=== PATIENT | male | born 1955 | race Caucasian/White ===

== ENCOUNTER → 2017-11-30 12:21 | Outpatient (CLI) | payer OTHER, SELFPAY ==
[2017-11-30 13:31] LABS: Absolute Lymphocyte Count 2.01 X10^3/ul (0.83-4.51); Absolute Neutrophil Count 5.2 X10^3/uL (2.0-7.7); Basophil# 0.02 X10^3/uL; Basophil% 0.2 % (0-1); Eosinophil# 0.15 X10^3/uL; Eosinophils% 1.8 % (0-5); Hemoglobin 13.3 g/dl (13.0-16.5); Lymphocyte # 2.01 X10^3/ul (4.0); Lymphocyte % 24.6 % (19-41); Mean Corp Hgb Conc 33.3 g/gl (32-36); Mean Corpuscular Hgb 26.3 pg (27.0-32.0); Mean Corpuscular Volume 79.2 fL (80-94); Mean Platelet Vol. 10.1 fl (6.2-12.0); Monocyte% 9.8 % (0-10); Neutrophil # 5.18 X10^3/uL (2.7-7.7); Neutrophil % 63.5 % (47-70); Platelet Count 152 K/mm3 (150-450); RBC Distribution Width CV 14.2 % (11.6-14.6); RBC Distribution Width SD 40.1 fl (35.1-43.9); Red Blood Count 5.05 M/mm3 (4.6-6.2); White Blood Count 8.2 K/mm3 (4.4-11.0)
[2017-11-30 13:32] LABS: POSITIVE COUNT NO; POSITIVE DIFFERENTIAL NO; POSITIVE MORPHOLOGY NO
[2017-11-30 13:53] LABS: ALB/GLOB Ratio 0.9 RATIO (0.9-2.4); AST(SGOT) 37 U/L (15-37); Alanine Aminotransfer ALT/SGPT 43 U/L (16-61); Albumin, Serum 3.4 g/dL (3.2-5.0); Alkaline Phosphatase 73 U/L (45-117); Anion Gap 9 (5-15); BUN 42 mg/dL (7-18); BUN/Creat Ratio 24.6 RATIO (10-20); Calcium,Total 8.6 mg/dL (8.5-10.1); Chloride 100 mmol/L (98-107); Creatinine, Serum 1.71 mg/dL (0.70-1.30); EST Glomerular Filtration Rate 43 mL/min (>60); Est Glom Filt Rate - Afr Amer 53 mL/min (>60); Globulin 3.6 g/dL (2.2-4.2); Glucose 140 mg/dL (74-106); Potassium 3.6 mmol/L (3.5-5.1); Sodium Level 140 mmol/L (136-145); Thyroid Stim Hormone (TSH) 2.17 uIU/mL (0.358-3.74)
== END ==
PROVIDERS: Family Provider Family Medicine Geriatric Medicine; PCP Family Medicine Geriatric Medicine; Visit Provider Family Medicine Geriatric Medicine
DX: E11.9 Type 2 diabetes mellitus without complications (principal); F52.8 Other sexual dysfunction not due to a substance or known physiological condition; I10 Essential (primary) hypertension
CPT/HCPCS: 36415; 80053; 84403; 84443; 85025

== ENCOUNTER → 2018-04-15 16:25 | Outpatient (CLI) | payer OTHER, SELFPAY ==
--- NOTE | 2018-04-15 16:29 | RAD_ITS ---
STUDY: X-RAY - LUMBAR SPINE REASON FOR EXAM: Male, 62 years old. back pain had right hip replacement in 2012 and feels like he is off balance and leans more towards one side than the other TECHNIQUE: 3 view(s) of the lumbar spine were obtained. COMPARISON: April 12, 2015 FINDINGS: Normal lumbar lordosis. There is no substantial scoliosis. There is a normal alignment of the vertebrae. There is multilevel endplate spondylosis of the lumbar vertebrae. Normal disc space heights. There is atherosclerotic calcification of the abdominal aorta without a demonstrated aneurysm. RAD/Lumbar Spine 2 or 3 Views IMPRESSION: There has been mild progression of degenerative disc disease. Electronically Signed: Mariia Pollard MD at 13:55 EDT , Service support ,
--- NOTE | 2018-04-15 16:30 | RAD_ITS ---
STUDY: X-RAY - LEFT SHOULDER REASON FOR EXAM: Male, 62 years old. bilateral arm pain worse in left arm both arms go numb TECHNIQUE: 4 view(s) of the shoulder. COMPARISON: None. FINDINGS: Normal glenohumeral articulation. There is degenerative arthrosis of the acromioclavicular joint without inferior osseous spur formation. Normal acromion. Normal humeral head and visualized proximal humerus. The soft tissue structures are unremarkable. Normal visualized pulmonary apex. RAD/Shoulder min 2 Views IMPRESSION: There is mild acromioclavicular joint degenerative arthrosis. Electronically Signed: Mariia Pollard MD at 13:31 EDT , Service support ,
--- NOTE | 2018-04-15 16:30 | RAD_ITS ---
STUDY: X-RAY - RIGHT SHOULDER REASON FOR EXAM: Male, 62 years old. bilateral arm pain worse in left arm both arms go numb TECHNIQUE: 4 view(s) of the shoulder. COMPARISON: None. FINDINGS: Normal glenohumeral articulation. There is degenerative arthrosis of the acromioclavicular joint without inferior osseous spur formation. Normal acromion. Normal humeral head and visualized proximal humerus. The soft tissue structures are unremarkable. Normal visualized pulmonary apex. RAD/Shoulder min 2 Views IMPRESSION: There is acromioclavicular joint degenerative arthrosis. Electronically Signed: Mariia Pollard MD at 13:29 EDT , Service support ,
--- NOTE | 2018-04-15 16:35 | RAD_ITS ---
STUDY: X-RAY - CERVICAL SPINE REASON FOR EXAM: Male, 62 years old. back pain had right hip replacement in 2012 and feels like he is off balance and leans more towards one side than the other TECHNIQUE: 4 view(s) of the cervical spine were obtained. COMPARISON: None FINDINGS: There are degenerative changes of the anterior atlantoaxial articulation. Normal odontoid process. There is straightening of the normal cervical lordosis. There is multi-level endplate spondylosis. There is multi-level degenerative disc disease with multilevel disc space narrowing. Normal visualized intervertebral neuroforamina. The soft tissue structures are unremarkable. RAD/Cerv Spine 2 or 3 Views IMPRESSION: There are degenerative changes. Electronically Signed: Mariia Pollard MD at 13:54 EDT , Service support ,
== END ==
PROVIDERS: Family Provider Family Medicine Geriatric Medicine; PCP Family Medicine Geriatric Medicine; Visit Provider Anesthesiology Pain Medicine
DX: M47.892 Other spondylosis, cervical region (principal); M50.30 Other cervical disc degeneration, unspecified cervical region; M48.02 Spinal stenosis, cervical region; M51.36 Other intervertebral disc degeneration, lumbar region; M19.012 Primary osteoarthritis, left shoulder; M19.011 Primary osteoarthritis, right shoulder
CPT/HCPCS: 72040; 72100; 73030

== ENCOUNTER → 2018-05-30 10:34 | Outpatient (CLI) | payer OTHER, SELFPAY ==
--- NOTE | 2018-05-30 10:40 | RAD_ITS ---
STUDY: X-RAY - ABDOMEN/PELVIS REASON FOR EXAM: Male, 63 years old. Left-sided pain. TECHNIQUE: AP supine and upright views of the abdomen and pelvis. COMPARISON: None. FINDINGS: Normal visualized lung bases. There is an abundance of fecal material throughout the colon. There is no demonstrated free abdominal air. There is evidence of a hepatosplenomegaly. Normal soft tissue structures. There are diffuse degenerative changes of the visualized lumbar spine. Prior right total hip replacement. RAD/Abd Inc Decub and/or Erect IMPRESSION: Large amount of fecal material is seen in the colon. Hepatosplenomegaly. Electronically Signed: Pepe Hamlin MD at 11:20 EDT Tel [phone], Service support ,
--- NOTE | 2018-05-30 10:40 | RAD_ITS ---
STUDY: X-RAY - LUMBAR SPINE REASON FOR EXAM: Male, 63 years old. Left-sided pain. TECHNIQUE: 3 view(s) of the lumbar spine were obtained. COMPARISON: None FINDINGS: Normal lumbar lordosis. There is no substantial scoliosis. There is a normal alignment of the vertebrae. There is multilevel endplate spondylosis of the lumbar vertebrae. Normal disc space heights. Facet joint osteoarthritis. There is atherosclerotic calcification of the abdominal aorta without a demonstrated aneurysm. RAD/Lumbar Spine 2 or 3 Views IMPRESSION: Degenerative changes of the spine, as detailed above. Electronically Signed: Pepe Hamlin MD at 11:19 EDT Tel [phone], Service support ,
[2018-05-30 12:50] LABS: Absolute Neutrophil Count 5.3 X10^3/uL (2.0-7.7); Basophil# 0.01 X10^3/uL; Basophil% 0.1 % (0-1); Eosinophils% 2.7 % (0-5); Hematocrit 40.3 % (40-54); Hemoglobin 13.6 g/dl (13.0-16.5); Lymphocyte % 18.6 % (19-41); Mean Corp Hgb Conc 33.7 g/gl (32-36); Mean Corpuscular Volume 80.1 fL (80-94); Mean Platelet Vol. 9.6 fl (6.2-12.0); Monocyte# 0.57 X10^3/uL; Monocyte% 7.6 % (0-10); Neutrophil # 5.33 X10^3/uL (2.7-7.7); Neutrophil % 70.7 % (47-70); Platelet Count 145 K/mm3 (150-450); RBC Distribution Width SD 42.7 fl (35.1-43.9); Red Blood Count 5.03 M/mm3 (4.6-6.2); White Blood Count 7.5 K/mm3 (4.4-11.0)
[2018-05-30 12:53] LABS: POSITIVE COUNT NO; POSITIVE DIFFERENTIAL NO; POSITIVE MORPHOLOGY NO
[2018-05-30 12:56] LABS: Anion Gap 12 (5-15); BUN 31 mg/dL (7-18); BUN/Creat Ratio 19.7 RATIO (10-20); Chloride 104 mmol/L (98-107); Creatinine, Serum 1.57 mg/dL (0.70-1.30); EST Glomerular Filtration Rate 48 mL/min (>60); Est Glom Filt Rate - Afr Amer 58 mL/min (>60); Glucose 227 mg/dL (74-106); Potassium 3.7 mmol/L (3.5-5.1); Sodium Level 141 mmol/L (136-145)
--- NOTE | 2018-05-30 16:30 | US_ITS ---
STUDY: RENAL ULTRASOUND - COMPLETE REASON FOR EXAM: Male, 63 years old. Left flank pain, chronic kidney disease stage III TECHNIQUE: Ultrasound evaluation of the kidneys was performed with real-time and static webb-scale imaging. COMPARISON: None. FINDINGS: RIGHT KIDNEY: Normal location of the right kidney, which is normal in size. The right kidney measures 12.4 x 7.1 x 5.3 cm. There is a normal cortex of the right kidney. The renal cortex measures 1.8 cm. There is no right renal mass or cyst. There are no right renal calculi. There is an extrarenal pelvis. DISTAL RIGHT URETER: There is non-visualization of the distal right ureter. There is no demonstrated right ureterovesical junction calculus. There is a visualized right ureteral jet. LEFT KIDNEY: Normal location of the left kidney, which is normal in size. The left kidney measures 11.9 x 5.8 x 4.4 cm. There is a normal cortex of the left kidney. The renal cortex measures 1.3 cm. There is no left renal mass or cyst. There are no left renal calculi. There is an extrarenal pelvis. DISTAL LEFT URETER: There is non-visualization of the distal left ureter. There is no demonstrated left ureterovesical junction calculus. There is a visualized left ureteral jet. BLADDER: The distended urinary bladder has a volume of 202 ml. There is borderline wall thickness of the distended urinary bladder measuring 4 mm. There is no demonstrated mass within the urinary bladder. There are no demonstrated bladder calculi. US/Kidney and Bladder IMPRESSION: Trouble extrarenal pelvis of the kidneys. Borderline wall thickness of the urinary bladder. Electronically Signed: Obi Sheehan DO at 23:31 EDT Tel [phone], Service support ,
== END ==
PROVIDERS: Family Provider Family Medicine Geriatric Medicine; PCP Family Medicine Geriatric Medicine; Visit Provider Family Medicine Geriatric Medicine
DX: R10.9 Unspecified abdominal pain (principal); M54.5 Low back pain; K59.00 Constipation, unspecified; N18.3 Chronic kidney disease, stage 3 (moderate)
CPT/HCPCS: 36415; 72100; 74019; 76770; 80048; 85025

== ENCOUNTER → 2018-06-07 09:12 | Outpatient (CLI) | payer OTHER, SELFPAY ==
[2018-06-07 11:40] LABS: Absolute Lymphocyte Count 1.45 X10^3/ul (0.83-4.51); Absolute Neutrophil Count 4.3 X10^3/uL (2.0-7.7); Basophil# 0.02 X10^3/uL; Basophil% 0.3 % (0-1); Eosinophil# 0.16 X10^3/uL; Eosinophils% 2.5 % (0-5); Hematocrit 41.1 % (40-54); Hemoglobin 13.5 g/dl (13.0-16.5); Lymphocyte # 1.45 X10^3/ul (4.0); Lymphocyte % 22.2 % (19-41); Mean Corp Hgb Conc 32.8 g/gl (32-36); Mean Corpuscular Hgb 26.7 pg (27.0-32.0); Mean Corpuscular Volume 81.2 fL (80-94); Mean Platelet Vol. 9.9 fl (6.2-12.0); Monocyte# 0.63 X10^3/uL; Monocyte% 9.7 % (0-10); Neutrophil # 4.26 X10^3/uL (2.7-7.7); Neutrophil % 65.3 % (47-70); POSITIVE COUNT NO; POSITIVE DIFFERENTIAL NO; POSITIVE MORPHOLOGY NO; Platelet Count 121 K/mm3 (150-450); RBC Distribution Width CV 14.7 % (11.6-14.6); RBC Distribution Width SD 43.1 fl (35.1-43.9); Red Blood Count 5.06 M/mm3 (4.6-6.2); White Blood Count 6.5 K/mm3 (4.4-11.0)
[2018-06-07 12:03] LABS: ALB/GLOB Ratio 0.9 RATIO (0.9-2.4); AST(SGOT) 30 U/L (15-37); Alanine Aminotransfer ALT/SGPT 38 U/L (16-61); Albumin, Serum 3.3 g/dL (3.2-5.0); Alkaline Phosphatase 67 U/L (45-117); Anion Gap 10 (5-15); BUN 32 mg/dL (7-18); BUN/Creat Ratio 19.9 RATIO (10-20); Calcium,Total 8.6 mg/dL (8.5-10.1); Chloride 103 mmol/L (98-107); Creatinine, Serum 1.61 mg/dL (0.70-1.30); EST Glomerular Filtration Rate 46 mL/min (>60); Est Glom Filt Rate - Afr Amer 56 mL/min (>60); Globulin 3.5 g/dL (2.2-4.2); Glucose 179 mg/dL (74-106); PSA,Total - Annual Screen 1.17 ng/mL (0.00-4.00); Potassium 3.4 mmol/L (3.5-5.1); Protein, Total 6.8 g/dL (6.4-8.2); Sodium Level 137 mmol/L (136-145); Thyroid Stim Hormone (TSH) 1.47 uIU/mL (0.358-3.74)
[2018-06-08 07:46] LABS: Hep C Antibodies <0.1 s/co ratio (0.0-0.9)
== END ==
PROVIDERS: Family Provider Family Medicine Geriatric Medicine; PCP Family Medicine Geriatric Medicine; Visit Provider Family Medicine Geriatric Medicine
DX: E11.9 Type 2 diabetes mellitus without complications (principal); F52.8 Other sexual dysfunction not due to a substance or known physiological condition; I10 Essential (primary) hypertension; Z12.5 Encounter for screening for malignant neoplasm of prostate; Z13.89 Encounter for screening for other disorder
CPT/HCPCS: 36415; 80053; 84153; 84403; 84443; 85025; 86803; G0103

== ENCOUNTER → 2018-06-26 13:31 | Outpatient (CLI) | payer OTHER, SELFPAY ==
[2018-06-26 17:09] LABS: Protein, Urine (Random) 574.4 mg/dL (<11.9); Protein:Creat Ratio 4418 mg/g CRE (0-200)
== END ==
PROVIDERS: Family Provider Family Medicine Geriatric Medicine; PCP Family Medicine Geriatric Medicine; Visit Provider Internal Medicine Nephrology
DX: E11.22 Type 2 diabetes mellitus with diabetic chronic kidney disease (principal); N18.3 Chronic kidney disease, stage 3 (moderate); E11.21 Type 2 diabetes mellitus with diabetic nephropathy
CPT/HCPCS: 36415; 82570; 84156

== ENCOUNTER → 2018-07-02 14:24 | Outpatient (CLI) | payer OTHER, SELFPAY ==
[2018-07-02 15:22] LABS: 24HR. UA Prot. Total Volume 4250 mL; Urine Protein (24 Hour) 230.3 mg/dL (<11.9)
[2018-07-02 17:05] LABS: Creatinine, Serum 1.53 mg/dL (0.70-1.30); EST Glomerular Filtration Rate 49 mL/min (>60); Est Glom Filt Rate - Afr Amer 60 mL/min (>60)
[2018-07-02 18:15] LABS: Creat.Clear Total Volume 4250 mL; Creatinine Clearance 94 ml/min (100-200); Creatinine Serum Creat 1.5 mg/dL (0.8-1.3); Creatinine Urine 48.9 mg/dL (NO RANGE EST.); EST Glomerular Filtration Rate 49 mL/min (>60); Est Glom Filt Rate - Afr Amer 60 mL/min (>60)
== END ==
PROVIDERS: Family Provider Family Medicine Geriatric Medicine; PCP Family Medicine Geriatric Medicine; Referring Provider Internal Medicine Nephrology; Visit Provider Internal Medicine Nephrology
DX: N18.3 Chronic kidney disease, stage 3 (moderate) (principal)
CPT/HCPCS: 36415; 82565; 82575; 84156

== ENCOUNTER → 2018-07-19 14:47 | Outpatient (CLI) | payer OTHER, SELFPAY ==
[2018-07-19 15:58] LABS: Albumin, Serum 3.3 g/dL (3.2-5.0); BUN 30 mg/dL (7-18); BUN/Creat Ratio 19.4 RATIO (10-20); Calcium,Total 8.6 mg/dL (8.5-10.1); Chloride 102 mmol/L (98-107); Creatinine, Serum 1.55 mg/dL (0.70-1.30); EST Glomerular Filtration Rate 49 mL/min (>60); Est Glom Filt Rate - Afr Amer 59 mL/min (>60); Glucose 180 mg/dL (74-106); Phosphorus 3.8 mg/dL (2.5-4.9); Potassium 3.5 mmol/L (3.5-5.1); Sodium Level 140 mmol/L (136-145)
== END ==
PROVIDERS: Referring Provider Internal Medicine Nephrology; Visit Provider Internal Medicine Nephrology
DX: N18.3 Chronic kidney disease, stage 3 (moderate) (principal)
CPT/HCPCS: 36415; 80069

== ENCOUNTER → 2018-12-13 11:12 | Outpatient (CLI) | payer OTHER, SELFPAY ==
[2018-12-13 13:24] LABS: Absolute Lymphocyte Count 2.14 X10^3/ul (0.83-4.51); Basophil# 0.02 X10^3/uL; Basophil% 0.3 % (0-1); Eosinophil# 0.14 X10^3/uL; Eosinophils% 1.8 % (0-5); Hematocrit 39.2 % (40-54); Hemoglobin 12.8 g/dl (13.0-16.5); Lymphocyte # 2.14 X10^3/ul (4.0); Lymphocyte % 27.2 % (19-41); Mean Corp Hgb Conc 32.7 g/gl (32-36); Mean Corpuscular Hgb 26.2 pg (27.0-32.0); Mean Corpuscular Volume 80.3 fL (80-94); Mean Platelet Vol. 9.6 fl (6.2-12.0); Monocyte# 0.59 X10^3/uL; Monocyte% 7.5 % (0-10); Neutrophil # 4.96 X10^3/uL (2.7-7.7); Neutrophil % 63.1 % (47-70); Platelet Count 142 K/mm3 (150-450); RBC Distribution Width CV 14.9 % (11.6-14.6); RBC Distribution Width SD 43.1 fl (35.1-43.9); Red Blood Count 4.88 M/mm3 (4.6-6.2); White Blood Count 7.9 K/mm3 (4.4-11.0)
[2018-12-13 13:29] LABS: POSITIVE COUNT NO; POSITIVE DIFFERENTIAL NO; POSITIVE MORPHOLOGY NO
[2018-12-13 13:42] LABS: ALB/GLOB Ratio 0.9 RATIO (0.9-2.4); AST(SGOT) 40 U/L (15-37); Alanine Aminotransfer ALT/SGPT 43 U/L (16-61); Albumin, Serum 3.3 g/dL (3.2-5.0); Alkaline Phosphatase 69 U/L (45-117); Anion Gap 8 (5-15); BUN 35 mg/dL (7-18); BUN/Creat Ratio 17.2 RATIO (10-20); Calcium,Total 8.5 mg/dL (8.5-10.1); Chloride 102 mmol/L (98-107); Creatinine, Serum 2.04 mg/dL (0.70-1.30); EST Glomerular Filtration Rate 35 mL/min (>60); Est Glom Filt Rate - Afr Amer 43 mL/min (>60); Globulin 3.5 g/dL (2.2-4.2); Glucose 161 mg/dL (74-106); Protein, Total 6.8 g/dL (6.4-8.2); Sodium Level 140 mmol/L (136-145); Thyroid Stim Hormone (TSH) 2.21 uIU/mL (0.358-3.74)
== END ==
PROVIDERS: Visit Provider Family Medicine Geriatric Medicine
DX: E11.9 Type 2 diabetes mellitus without complications (principal); F52.8 Other sexual dysfunction not due to a substance or known physiological condition; I10 Essential (primary) hypertension
CPT/HCPCS: 36415; 80053; 84403; 84443; 85025

== ENCOUNTER 2019-04-19 21:29 | Inpatient (IN) | payer OTHER, SELFPAY ==
[2019-04-19 21:30] VITALS: BP 212/78; PULSE 67; RESP 18; TEMP 36.4; O2SAT 95; BMI 43.4
--- NOTE | 2019-04-19 22:04 | CT_ITS ---
HISTORY:UMBILICAL HERNIA X 6 HOURS, NAUSEA TECHNIQUE:CT Abdomen And Pelvis W/O Contrast Axial CT images were obtained of the abdomen and pelvis without oral or IV contrast. Multiplanar rectructions were also obtained. A radiation dose optimization technique was used for this scan. # of images including paperwork:[id number] COMPARISON: June 08, 2017 FINDINGS: LUNG BASES: Dependent atelectasis in the lung bases LIVER T BILIARY TRACT: Unremarkable. GALLBLADDER:Poorly distended. No stones PANCREAS: Unremarkable for nonenhanced study SPLEEN: Splenomegaly similar to prior study ADRENAL GLANDS: Unremarkable. KIDNEYS/URETERS:No hydronephrosis or nephrolithiasis. The ureters are not distended BLADDER: Poorly distended STOMACH, SMALL AND LARGE BOWEL: The stomach is mildly distended There are fluid-filled distended loops of small bowel measuring up to 3.4 cm.'s the bowel is distended to the level of the umbilicus where small bowel extends into an umbilical hernia. The bowel distal to the hernia is not distended. There is mild surrounding fat stranding adjacent to the hernia. The hernia neck measures approximately 1.4 x 1.5 cm. There is minimal wall thickening contained within the small bowel in the hernia. APPENDIX: No appendicitis. ASCITES: Unremarkable. FREE AIR: Unremarkable. PELVIS: The prostate gland measures 4.5 x 5.2 cm AORTA: Unremarkable. LYMPH NODES: Unremarkable. OSSEOUS STRUCTURES: No acute osseous abnormality. Right total hip prosthesis with no evidence of hardware complication CT/Abdomen/Pelvis without Cont IMPRESSION: There is a loop of small bowel contained within an umbilical hernia. Minimal fluid is seen surrounding the loop. The neck of the hernia measures approximate 1.4 x 1.5 cm. There is dilatation of the small bowel proximal to the hernia with decompression distal. Correlate clinically for reducibility of the hernia. This may represent an incarcerated hernia. Individualized dose optimization techniques were used for this CT. at 2307 Reported and signed by: Magalie De Leon DO Electronically Signed: Magalie De Leon DO at 23:06 EDT Tel , Service support ,
--- NOTE | 2019-04-19 22:05 | ED.DCSUM_ITS ---
- ER Visit Summary Date of Service: 04/19/19 Chief Complaint: Abdominal pain History of Present Illness: The patient is a 63 M who has abdominal pain that started earlier today, about 6 hours ago. He has a known umbilical hernia and is usually able to reduce it. However tonight he is unable to do so. Pain is increasing around his umbilicus. He has had nausea without vomiting. No urinary symptoms. He has felt constipated and tried Ex-Lax but was unsuccessful. He took nothing for pain today. Denies any fevers. He was referred to a surgeon but never saw anybody for this. Physical Examination: Vital signs reviewed. HEENT exam unremarkable. Heart is regular rate and rhythm without murmurs. Lungs are clear to auscultation. Abdomen is soft with periumbilical tenderness. There are no skin changes. He does have a small umbilical hernia which is unreducible at this time. Extremities reveal no edema. Skin exam normal. Neurologic exam normal. Test Results: CBC unremarkable. Glucose 229, creatinine 2.02 which is baseline. CAT scan reveals a loop of small bowel in this umbilical hernia. There is dilation proximal and decompression distal. There is concern for incarceration with small bowel obstruction Emergency Department Course and Treatment: Patient was given morphine and Zofran. I attempted to reduce his hernia but was unsuccessful at it. He does have concerns of incarceration on CAT scan. I discussed with Dr. Rock. He reviewed the images and is also concerned about this. He will be in to evaluate the patient Treatment Plan: [] Disposition: Likely to surgery Impression: Incarcerated ventral hernia with small bowel obstruction This note was generated with [employer] ([employer]) dictation software. It may contain incorrect words, spelling, and punctuation that were not noted in review of the chart prior to signing ED Disposition - Plan for ED Patient: Referrals: Urbano Aranda Chi, MD [Primary Care Provider] -
[2019-04-19] MEDS: Morphine 4 MG/ML Syringe IV (22:16)
[2019-04-19] MEDS: Ondansetron 4 MG/2 ML Vial IV (22:17)
[2019-04-19 22:23] LABS: Absolute Lymphocyte Count 1.07 X10^3/uL (0.83-4.51); Basophil# 0.03 X10^3/uL; Basophil% 0.3 % (0-1); Eosinophil# 0.07 X10^3/uL; Eosinophils% 0.7 % (0-5); Hematocrit 41.7 % (40-54); Hemoglobin 13.9 g/dL (13.0-16.5); Lymphocyte # 1.07 X10^3/ul (4.0); Mean Corp Hgb Conc 33.3 g/dL (32-36); Mean Corpuscular Hgb 26.9 pg (27.0-32.0); Mean Corpuscular Volume 80.8 fL (80-94); Mean Platelet Vol. 9.5 fl (6.2-12.0); Monocyte# 0.51 X10^3/uL; Monocyte% 5.3 % (0-10); NRBC Flagged by Analyzer 0 % (0-5); Neutrophil # 7.99 X10^3/uL (2.7-7.7); Neutrophil % 82.3 % (47-70); Platelet Count 143 K/mm3 (150-450); RBC Distribution Width CV 13.8 % (11.6-14.6); RBC Distribution Width SD 40.1 fl (35.1-43.9); Red Blood Count 5.16 M/mm3 (4.6-6.2); White Blood Count 9.7 K/mm3 (4.4-11.0)
[2019-04-19 22:43] LABS: ALB/GLOB Ratio 0.9 RATIO (0.9-2.4); AST(SGOT) 33 U/L (15-37); Alanine Aminotransfer ALT/SGPT 37 U/L (16-61); Albumin, Serum 3.5 g/dL (3.2-5.0); Alkaline Phosphatase 72 U/L (45-117); Anion Gap 8 (5-15); BUN 37 mg/dL (7-18); BUN/Creat Ratio 18.3 RATIO (10-20); Calcium,Total 9.2 mg/dL (8.5-10.1); Chloride 101 mmol/L (98-107); Creatinine, Serum 2.02 mg/dL (0.70-1.30); EST Glomerular Filtration Rate 36 mL/min (>60); Est Glom Filt Rate - Afr Amer 43 mL/min (>60); Estimated Creatinine Clearance 35.45 ml/min; Globulin 3.8 g/dL (2.2-4.2); Glucose 229 mg/dL (74-106); Potassium 3.9 mmol/L (3.5-5.1); Protein, Total 7.3 g/dL (6.4-8.2); Sodium Level 138 mmol/L (136-145)
[2019-04-19 23:39] VITALS: BP 174/89; PULSE 80; RESP 20; TEMP 36.4; O2SAT 94; BMI 43.4
--- NOTE | 2019-04-19 23:50 | HERN_PTH ---
PATIENT: LUCIE PEREZ LOC: [facility] U#:[id number] AGE/SX: 63/M ROOM: TX322 RE04/20/[address]: Dr. Jovan Rock MD : [id number] BED: 1 DIS: 04/22/2019 SPEC #: [id number] RECD: 04/21/19 11:19 STATUS: MARY REQ #: [id number] MAYRA: 04/19/19 23:[address]: Jovan Rock DEPT: SURGICAL PATHOLOGY RECD BY: Swapna Owen ENTERED: 04/21/19 12:01 SP TYPE: Hernia OTHR DR: Dr. Urbano Aranda MD Tissues: HERNIA Procedures: Surgery Specimen Level II HEADER OPERATION: Hernia, umbilical repair with mesh PRE-OP DIAGNOSIS: Incarcerated strangulated umbilical hernia TISSUE SUBMITTED: Hernia sac MICROSCOPIC DIAGNOSIS Hernia sac, herniorrhaphy: Fibrosis and mild chronic inflammation. Vascular congestion. AM:henrietta 04/22/19 MICROSCOPIC DESCRIPTION Slides are reviewed. GROSS DESCRIPTION Received in fixative is one container labeled with the patient's name and designated hernia sac. The specimen consists of an irregular fragment of glistening, castro mucosa measuring 3 x 2.5 x 1 cm. Serial sections do not reveal mass lesions. Director Of Partner Marketing sections are submitted in one cassette. / AM:henrietta 04/21/19 TC:2 CPT: 16303
[2019-04-20] VITALS (15 sets, daily range): BP systolic 133–222; BP diastolic 57–89; PULSE 73–101; RESP 14–30; TEMP 36.1–36.9; O2SAT 87–98; BMI 43.4
[2019-04-20] LABS: Bedside Glucose 223 mg/dL (70-110)
--- NOTE | 2019-04-20 00:02 | HP.PCM_ITS ---
History of Present Illness Date of Admission: 04/19/19 Chief Complaint: umbilical pain The patient is a 63 year old M with a multi-year history of an umbilical hernia that was always reducible. He has been unable to reduce the hernia for the past 7 hours. HE present to the [facility] ER. multiple attempts to reduce the hernia failed. CT scan demonstrated small bowel incarcerated into the 1.5cm hernia defect. WBC count is normal, last meal at 5pm Past Medical History Allergies No Known Allergies Allergy (Verified 04/19/19 21:32) Home Medications: Ambulatory Orders Medication Instructions Recorded Apidra 40 units SQ TID 06/08/17 Fenofibrate Nanocrystallized 160 mg PO DAILY 06/08/17 [Triglide] Lantus 70 units SQ DAILY 06/08/17 Lisinopril [Zestril] 40 mg PO DAILY 06/08/17 Metoprolol Tartrate [Lopressor 25 mg PO BID 06/08/17 (Beta Carter)] Sildenafil Citrate [Viagra] 100 mg PO PRN PRN 06/08/17 hydroCHLOROthiazide 12.5 mg PO DAILY 06/08/17 [Hydrochlorothiazide] Surgical History: - - multiple hip and knee procedures, tonsillectomy Smoking Status: Former smoker Review of Systems Constitutional: Reports: Anorexia, Malaise. Denies: Chills, Fever, Weight Change Gastrointestinal: Reports: Abdominal Pain, Nausea VTE Information - Inpt Only VTE Present on Admission: No VTE Mechan Device Prophylaxis: SCD's VTE Pharm Prophylaxis ordered?: No - Physical Exam General: Alert, Oriented x3, Cooperative Lungs: Clear to auscultation, Normal air movement Cardiovascular: Regular rate, No murmurs Abdomen: Bowel Sounds Present, Soft, Tender - at supraumbilical area - 2cm non reducible hernia, skin erythematous over the site Vital Signs Temp Pulse Resp BP Pulse Ox 97.6 F L 80 20 H 174/89 H 94 04/19/19 23:39 04/19/19 23:39 04/19/19 23:39 04/19/19 23:39 04/19/19 23:39 Oxygen Delivery Method Room Air Weight: 125.8 kg Body Mass Index (BMI) 43.4 Laboratory Tests Past 24 Hrs 04/19/19 04/19/19 22:15 22:15 WBC 9.7 RBC 5.16 Hgb 13.9 Hct 41.7 MCV 80.8 MCH 26.9 L MCHC 33.3 RDW Std Deviation 40.1 RDW Coeff of Maxim 13.8 Plt Count 143 L MPV 9.5 Immature Gran % (Auto) 0.400 Neut % (Auto) 82.3 H Lymph % (Auto) 11.0 L Briscoe % (Auto) 5.3 Eos % (Auto) 0.7 Baso % (Auto) 0.3 Absolute Neuts (auto) 8.0 H Absolute Lymphs (auto) 1.07 Nucleated RBC % 0 Sodium 138 Potassium 3.9 Chloride 101 Carbon Dioxide 29.0 Anion Gap 8 BUN 37 H Creatinine 2.02 H Estim Creat Clear Calc 35.45 Est GFR (MDRD) Af Amer 43 L Est GFR (MDRD) Non-Af 36 L BUN/Creatinine Ratio 18.3 Glucose 229 H Calcium 9.2 Total Bilirubin 0.70 AST 33 ALT 37 Alkaline Phosphatase 72 Total Protein 7.3 Albumin 3.5 Globulin 3.8 Albumin/Globulin Ratio 0.9 POC Glucose 04/19/19 23:50 POC Glucose 223 H Assessment/Plan incarcerated/h/o strandulated umbilical hernia I plan to perform an emergency incarcerated umbilical hernia repair. THe patient understands the risks, benefits, possible complications and alternatives including the possibility of a bowel resectdion given the length of time the hernia has been incarcerated. He consents. SCDs and 3gm Ancef will be given.
[2019-04-20] MEDS: 0.9% Normal Saline 1,000 ML 150 ML IV (00:08)
[2019-04-20] MEDS: fentaNYL 100 MCG/2 ML Ampul 50 MCG IV (00:08)
--- NOTE | 2019-04-20 01:27 | PCM.OPRPT ---
Report of Operation Date of Procedure: 04/20/19 Pre-Operative Diagnosis: incarcerated umbilical hernia Post-Operative Diagnosis: incarcerated umbilical hernia Surgery/Procedure Performed:: repair of incarcerated umbilical hernia earth sciences professor: None Type of Anesthesia:: General Anesthesiologist: Dave Olvera - [id number] Specimen's removed: hernia sac Drains: OG - 300cc Estimated Blood Loss (mL): minimal Fluids Replaced: 800 Description of Procedure: The patient was brought to the operating suite. Sign in was performed verifying patient, site, procedure, position, and DVT prophylaxis with SCDs. Patient received 3 g Ancef antibiotic prophylaxis. Following induction of general anesthetic - another attempt to reduce the incarcerated hernia was performed and this was unsuccessful. Following this, the patient?s abdomen was prepped and draped in the usual fashion. Timeout was performed verifying patient, site, position. Local anesthetic was injected . A linear incision was madeoverlying the distended hernia just above the umbilicus and following curvilinear incision around the umbilicus. Dissection carried down to the umbilical root fascia. as dissection was carried around the hernia sac was being dissected from its surrounding structures the bowel spontaneously reduced while attempting to lift up the hernia sac. At this point the hernia sac was opened. There was no murky or purulent appearing fluid within the sac or emanating from the abdominal cavity. The actual fascial defect was approximately 1.4 cm and felt to have a good fascial margin. 3 - [id number] interrupted 0 Prolene sutures were placed at the fascial defect. Following this the umbilical root was tacked back down with a 3-0 Vicryl suture. Subcutaneous fat was closed with interrupted 3-0 Vicryl suture. Skin was closed with ibis. The patient was brought to recovery room in stable condition.
--- NOTE | 2019-04-20 02:25 | SUR.PHASEI ---
Blood glucose 193
[2019-04-20 02:31] LABS: Bedside Glucose 193 mg/dL (70-110)
--- NOTE | 2019-04-20 02:50 | NURSING ---
Report received from Chan in PACU.
[2019-04-20] MEDS: Lactated Ringers 1,000 ML 70 ML IV (04:01)
[2019-04-20] MEDS: Morphine 2 MG/ML Syringe IV ×2 (04:13→07:04)
[2019-04-20] MEDS: Insulin Lispro 100 UNIT/ML INSULN.PEN 40 UNIT SC (08:56)
[2019-04-20 09:56] LABS: Bedside Glucose 194 mg/dL (70-110)
--- NOTE | 2019-04-20 11:09 | PCM.PN.SRG ---
Subjective: no flatus, incisional pain no diffuse abdominal pain - Physical Exam General: Alert, Oriented x3, Cooperative Lungs: Diminished, Rhonchi Cardiovascular: Regular rate, Regular Rhythm Abdomen: Soft, Non Tender - diffusely with tenderness at incision as expected, Hypoactive Bowel Sounds Vital Signs Temp Pulse Resp BP Pulse Ox 97.8 F 83 18 146/70 H 89 04/20/19 08:44 04/20/19 08:44 04/20/19 08:44 04/20/19 08:44 04/20/19 08:46 Oxygen Flow Rate (L/min) 1 Oxygen Delivery Method Nasal Cannula Weight: 125.8 kg Body Mass Index (BMI) 43.4 Finger Stick Blood Glucose 193 Intake and Output for Last 24 Hours 04/18/19 04/19/19 04/20/19 23:59 23:59 23:59 Intake Total 1122 / 1122 Output Total 150 / 150 Balance 972 / 972 Laboratory Tests Past 24 Hrs 04/19/19 04/19/19 22:15 22:15 WBC 9.7 RBC 5.16 Hgb 13.9 Hct 41.7 MCV 80.8 MCH 26.9 L MCHC 33.3 RDW Std Deviation 40.1 RDW Coeff of Maxim 13.8 Plt Count 143 L MPV 9.5 Immature Gran % (Auto) 0.400 Neut % (Auto) 82.3 H Lymph % (Auto) 11.0 L Nobles % (Auto) 5.3 Eos % (Auto) 0.7 Baso % (Auto) 0.3 Absolute Neuts (auto) 8.0 H Absolute Lymphs (auto) 1.07 Nucleated RBC % 0 Sodium 138 Potassium 3.9 Chloride 101 Carbon Dioxide 29.0 Anion Gap 8 BUN 37 H Creatinine 2.02 H Estim Creat Clear Calc 35.45 Est GFR (MDRD) Af Amer 43 L Est GFR (MDRD) Non-Af 36 L BUN/Creatinine Ratio 18.3 Glucose 229 H Calcium 9.2 Total Bilirubin 0.70 AST 33 ALT 37 Alkaline Phosphatase 72 Total Protein 7.3 Albumin 3.5 Globulin 3.8 Albumin/Globulin Ratio 0.9 POC Glucose 04/20/19 04/20/19 04/19/19 08:51 02:25 23:50 POC Glucose 194 H 193 H 223 H Medical Necessity - Tobacco Use Smoking Status: Former smoker Assessment/Plan postoperative day #0 status post emergency repair of incarcerated umbilical hernia the patient was monitored until he has return of bowel function. I do anticipate a probable short-term ileus given the fact that while the bowel did reduce spontaneously intraoperatively it was located within the hernia sac for proximal 27 hours based on the patient's history. Diabetes-we'll plan for Accu-Cheks and decrease his usual insulins dose given his nothing by mouth status. Morbid obesity, pickwickian, hypercarbia postop, we'll maintain the patient oxygen weaning as tolerated. We'll encourage incentive spirometry use. We will encourage ambulation.. SCDs and Lovenox for VTE prophylaxis
[2019-04-20] MEDS: Lactated Ringers 500 ML 999 ML IV (11:41)
[2019-04-20 11:57] LABS: Bedside Glucose 147 mg/dL (70-110)
[2019-04-20] MEDS: Enoxaparin 40 MG/0.4 ML Syringe SC (11:59)
[2019-04-20] MEDS: HYDROcodone Bitartrate/Apap 5/325 Tablet PO ×2 (14:15→23:15)
[2019-04-20] MEDS: hydroCHLOROthiazide 12.5mg 12.5 MG PO (16:56)
[2019-04-20 17:05] LABS: Bedside Glucose 161 mg/dL (70-110)
[2019-04-20 22:36] LABS: Bedside Glucose 123 mg/dL (70-110)
[2019-04-20 23:25] LABS: Bedside Glucose 129 mg/dL (70-110)
[2019-04-21] VITALS (8 sets, daily range): BP systolic 144–153; BP diastolic 72–76; PULSE 64–72; RESP 16–18; TEMP 36.2–37.1; O2SAT 86–97
[2019-04-21] MEDS: Lactated Ringers 1,000 ML 70 ML IV ×2 (00:30→14:32)
[2019-04-21] MEDS: Enoxaparin 40 MG/0.4 ML Syringe SC (06:05)
--- NOTE | 2019-04-21 07:39 | NURSING ---
PT PLACED ON O2 2L NC - WILL MONITOR
[2019-04-21 08:00] LABS: Bedside Glucose 140 mg/dL (70-110)
--- NOTE | 2019-04-21 09:04 | PCM.PN.SRG ---
Subjective: no flatus, hungry - Physical Exam General: Alert, Oriented x3, Cooperative Lungs: Clear to auscultation, Normal air movement Cardiovascular: Regular rate, No murmurs Abdomen: Soft, Hypoactive Bowel Sounds, Tender - at incisions, no peritoneal signs Vital Signs Temp Pulse Resp BP Pulse Ox 98.8 F 72 18 147/75 H 86 04/21/19 07:36 04/21/19 07:36 04/21/19 07:36 04/21/19 07:36 04/21/19 07:36 Oxygen Flow Rate (L/min) 2 Oxygen Delivery Method Room Air Weight: 125.8 kg Body Mass Index (BMI) 43.4 Finger Stick Blood Glucose 193 Intake and Output for Last 24 Hours 04/19/19 04/20/19 04/21/19 23:59 23:59 23:59 Intake Total 2886 / 3602 1476 / 1476 Output Total 495 / 795 950 / 950 Balance 2391 / 2807 526 / 526 POC Glucose 04/21/19 04/20/19 04/20/19 07:32 23:19 22:33 POC Glucose 140 H 129 H 123 H 04/20/19 04/20/19 04/20/19 16:46 11:52 08:51 POC Glucose 161 H 147 H 194 H Medical Necessity - Tobacco Use Smoking Status: Former smoker Assessment/Plan postoperative day #1 status post emergency repair of incarcerated umbilical hernia the patient was monitored until he has return of bowel function. I do anticipate a probable short-term ileus given the fact that while the bowel did reduce spontaneously intraoperatively it was located within the hernia sac for proximal 27 hours based on the patient's history. Diabetes-we'll plan for Accu-Cheks and decrease his usual insulins dose given his nothing by mouth status. Morbid obesity, pickwickian, hypercarbia postop, we'll maintain the patient oxygen weaning as tolerated. We'll encourage incentive spirometry use. We will encourage ambulation.. SCDs and Lovenox for VTE prophylaxis
[2019-04-21] MEDS: HYDROcodone Bitartrate/Apap 5/325 Tablet PO ×2 (09:31→17:59)
[2019-04-21] MEDS: Lisinopril 40 MG Tablet PO (09:33)
[2019-04-21] MEDS: Metoprolol Tartrate 25 MG Tablet PO ×2 (09:33→23:38)
[2019-04-21] MEDS: Fenofibrate 145 MG Tablet PO (09:33)
[2019-04-21] MEDS: hydroCHLOROthiazide 12.5mg 12.5 MG PO (09:33)
--- NOTE | 2019-04-21 12:02 | CASEMGMT ---
RN CM Assessment Presentation: S/P emergency repair of incarerated umbilical hernia Intro role of CM and purpose of RN CM assessment to patient, awake, alert and sitting in chair. Demographics, PCP and Pharmacy verified. Pt states he plans to return home and does not anticipate care needs. Is on O2 2L [place], pt states he is former, not current smoker. Does not use oxygen at home. PCP: Dr. Aranda Specialists: Dr. Rock, surgeon, Dr. Pollard, nephrology Preferred [facility]acy: [facility] Insurance: [employer] Prescription Benefit: yes LNOK: [facility] Arrangements: Lives independently, no care needs identified. Transportation: drives or SO can drive DME: no ambulatory DME, no oxygen or CPAP. Has blood glucose monitoring equipment. HHC: none Patient DC goals: Home DC PLAN: Home. Reilly MYLES RN AC
[2019-04-21 12:05] LABS: Bedside Glucose 153 mg/dL (70-110)
[2019-04-21] MEDS: Morphine 2 MG/ML Syringe IV (12:58)
[2019-04-21] MEDS: 0.9% NaCl Peripheral Flush Adult/Peds IV (12:59)
--- NOTE | 2019-04-21 15:42 | RAD_ITS ---
STUDY: X-RAY - ABDOMEN/PELVIS REASON FOR EXAM: Male, 63 years old. Post hernia repair TECHNIQUE: 3 views COMPARISON: None. FINDINGS: Normal visualized lung bases. Diffuse fecal retention noted within the colon. No evidence for small bowel obstruction.. There is no demonstrated free abdominal air. Nonspecific splenomegaly The visualized liver, and kidneys are grossly normal in size and morphology. Post surgical changes within the upper pelvis in the midline. Lumbar spine demonstrates spondylosis. Right hip prosthesis is noted.. RAD/Abd Inc Decub and/or Erect IMPRESSION: Postsurgical changes within the mid upper pelvis. No evidence for small bowel obstruction Electronically Signed: Filemon Diaz MD at 16:20 EDT , Service support ,
--- NOTE | 2019-04-21 15:45 | NURSING ---
PT REQUESTING SOMETHING TO HELP BOWELS MOVE. DR COREY NOTIFIED @ NEW ORDER RECEIVED.
[2019-04-21] MEDS: Bisacodyl 10 MG Suppository RECTAL (17:03)
[2019-04-21 17:11] LABS: Bedside Glucose 119 mg/dL (70-110)
--- NOTE | 2019-04-21 18:58 | NURSING ---
NO RESULTS FROM SUPP, STILL NO FLATUS. DR COREY NOTIFIED - ORDER FOR ENEMA X1.
[2019-04-21] MEDS: Fleet Enema 1 ML RECTAL (19:08)
[2019-04-22 00:01] LABS: Bedside Glucose 99 mg/dL (70-110)
[2019-04-22] MEDS: HYDROcodone Bitartrate/Apap 5/325 Tablet PO ×3 (01:25→15:23)
[2019-04-22 01:30] VITALS: BP 154/81; PULSE 69; RESP 20; TEMP 36.3; O2SAT 92
[2019-04-22 03:28] VITALS: BP 153/74; PULSE 66; RESP 18; TEMP 36.8; O2SAT 92
[2019-04-22] MEDS: Enoxaparin 40 MG/0.4 ML Syringe SC (06:35)
[2019-04-22 06:58] VITALS: O2SAT 95
[2019-04-22 07:20] LABS: Bedside Glucose 114 mg/dL (70-110)
[2019-04-22] MEDS: Lactated Ringers 1,000 ML 70 ML IV (08:47)
[2019-04-22 08:48] VITALS: PULSE 84
[2019-04-22] MEDS: Fenofibrate 145 MG Tablet PO (08:48)
[2019-04-22] MEDS: Metoprolol Tartrate 25 MG Tablet PO (08:48)
[2019-04-22] MEDS: Lisinopril 40 MG Tablet PO (08:48)
[2019-04-22] MEDS: hydroCHLOROthiazide 12.5mg 12.5 MG PO (08:48)
[2019-04-22 09:30] VITALS: BP 155/77; PULSE 71; RESP 18; TEMP 36.4; O2SAT 92
[2019-04-22 10:56] LABS: Bedside Glucose 164 mg/dL (70-110)
[2019-04-22] MEDS: Insulin Lispro 100 UNIT/ML INSULN.PEN 40 UNIT SC (11:52)
--- NOTE | 2019-04-22 12:09 | DCINST_ITS ---
Discharge Diet: Light diet - advance as tolerated - once having bowel movements. add Miralax until having bowel movements Discharge Activity: Return to Normal Activity, May Drive - when you are no longer taking narcotic pain medications., May Shower - with the bandage in place 1-2 days after surgery. Lifting Restrictions: 20 pounds for 8 weeks. Additional Activity Instructions:: Climbing stairs is fine, walking is encouraged. Sitting in bed may be uncomfortable. Sitting up using your lateral muscles (sitting up sideways) is usually more comfortable. Do not drive, work heavy equipment of sign legal documents for 24 hours. If your hernia repair was an ingunial repair, you may have scrotal swelling, an ice pack and/or athletic support can provide more comfort. Pain medications may cause nausea, you should typically eat light foods as you take your pain medications. Pain medications may also cause constipation. If you have difficulty with this, discuss with your doctor. Call your doctor if your incision/area has: Continuous Slow Oozing, Sudden I ncreased Bleeding, Increased Pain/ Swelling, Increased Redness, Foul Smelling Discharge Call your doctor if you observe: Fever of 101 or Higher Suture Line Care: Avoid Pulling/Pushing, Avoid Pinching/Bending Additional Dressing/Incision Instructions:: Leave the operative bandage on for 2-3 days. When you remove the bandage, leave the steri-strips on place until your follow up appointment or they fall off. Allergies/Adverse Reactions: Allergies No Known Allergies Allergy (Verified 04/19/19 21:32) Medications to take at Discharge Apidra 40 units SQ TID 06/08/17 Fenofibrate Nanocrystallized [Triglide] 160 mg PO DAILY 06/08/17 Lantus 70 units SQ DAILY 06/08/17 Lisinopril [Zestril] 40 mg PO DAILY 06/08/17 Metoprolol Tartrate [Lopressor (beta renny)] 25 mg PO BID 06/08/17 Sildenafil Citrate [Viagra] 100 mg PO PRN PRN 06/08/17 hydroCHLOROthiazide [Hydrochlorothiazide] 12.5 mg PO DAILY 06/08/17 Primary Care Physician: Urbano Aranda Chi, MD [Primary Care Provider] - Test Results: Test results from this visit will be discussed in further detail at your follow- up appointment, if applicable. Please Follow Up With: Jovan Rock MD - [phone] When: Plan to have a follow up appointment in 7 days. Call to schedule.
[2019-04-22 15:30] VITALS: BP 156/73; PULSE 70; RESP 18; TEMP 36.9; O2SAT 94
[2019-04-22 15:36] LABS: Bedside Glucose 70 mg/dL (70-110)
--- NOTE | 2019-04-22 19:38 | PCM.DC.SUM ---
Discharge Date and Diagnosis Date of Admission: 04/19/19 Date of Discharge: 04/22/19 - Primary Discharge Diagnosis incarcerated umbilical hernia Hospital Course and Treatment Operations: herniorrhaphy Summary of Care Provided: The patient is a 63 year old M presented with a 7 hour incarcerated umbilical hernia with bowel obstructive picture. The patient was taken to the operative suite emergently. While dissecting the hernia sac the bowel reduced spontaneously. The patient underwent simple supraumbilical ventral hernia repair. Postoperatively the patient had somewhat slow return of bowel function and notes a long-standing history of constipation. He had flatus. He was planned to be discharged home on clear liquids and Britt lax with instructions to follow-up in my office. - Physical Exam General: Alert, Oriented x3, Cooperative Lungs: Clear to auscultation, Normal air movement Cardiovascular: Regular rate, No murmurs Abdomen: Bowel Sounds Present, Soft, Non Tender Vital Signs Temp Pulse Resp BP Pulse Ox 98.4 F 70 18 156/73 H 94 04/22/19 15:30 04/22/19 15:30 04/22/19 15:30 04/22/19 15:30 04/22/19 15:30 Oxygen Flow Rate (L/min) 2 Oxygen Delivery Method Room Air Weight: 125.8 kg Body Mass Index (BMI) 43.4 Finger Stick Blood Glucose 193 Intake and Output for Last 24 Hours 04/20/19 04/21/19 04/22/19 23:59 23:59 23:59 Intake Total 2886 / 3602 3879 / 4623 1269 / 1269 Output Total 495 / 795 1250 / 1250 Balance 2391 / 2807 2629 / 3373 1269 / 1269 POC Glucose 04/22/19 04/22/19 04/22/19 15:30 10:46 06:44 POC Glucose 70 164 H 114 H 04/21/19 23:29 POC Glucose 99 Discharge Diet: Light diet - advance as tolerated - once having bowel movements. add Miralax until having bowel movements Discharge Activity: Return to Normal Activity, May Drive - when you are no longer taking narcotic pain medications., May Shower - with the bandage in place 1-2 days after surgery. Additional Activity Instructions:: Climbing stairs is fine, walking is encouraged. Sitting in bed may be uncomfortable. Sitting up using your lateral muscles (sitting up sideways) is usually more comfortable. Do not drive, work heavy equipment of sign legal documents for 24 hours. If your hernia repair was an ingunial repair, you may have scrotal swelling, an ice pack and/or athletic support can provide more comfort. Pain medications may cause nausea, you should typically eat light foods as you take your pain medications. Pain medications may also cause constipation. If you have difficulty with this, discuss with your doctor. Call your doctor if your incision/area has: Continuous Slow Oozing, Sudden Increased Bleeding, Increased Pain/ Swelling, Increased Redness, Foul Smelling Discharge Call your doctor if you observe: Fever of 101 or Higher Suture Line Care: Avoid Pulling/Pushing, Avoid Pinching/Bending Additional Dressing/Incision Instructions:: Leave the operative bandage on for 2-3 days. When you remove the bandage, leave the steri-strips on place until your follow up appointment or they fall off. Home Medications: Medications to take at Discharge Apidra 40 units SQ TID 06/08/17 Fenofibrate Nanocrystallized [Triglide] 160 mg PO DAILY 06/08/17 Lantus 70 units SQ DAILY 06/08/17 Lisinopril [Zestril] 40 mg PO DAILY 06/08/17 Metoprolol Tartrate [Lopressor (beta renny)] 25 mg PO BID 06/08/17 Sildenafil Citrate [Viagra] 100 mg PO PRN PRN 06/08/17 hydroCHLOROthiazide [Hydrochlorothiazide] 12.5 mg PO DAILY 06/08/17 Primary Care Physician: Urbano Aranda Chi, MD [Primary Care Provider] - Please Follow Up With: Jovan Rock MD When: Plan to have a follow up appointment in 7 days. Call to schedule. Please Follow Up With: Urbano Aranda Chi, MD Medical Necessity - Tobacco Use Smoking Status: Former smoker Meaningful Use Info Meaningful Use Diagnoses (Choose all that apply): None applicable
--- NOTE | 2019-04-23 14:35 | CASEMGMT ---
Case Management DC F/u Call: DC Date: 04/22/19 DC Diagnosis: incarcerated umbilical hernia DC Disposition: Home LACE/STRATA: 06/13 Attempt to call patient listed cell number on demographics, No answer and VM did not have patient identifier and therefore no VM was left. Jalen Andujar RNCM
== END 2019-04-22 16:25 | disposition home or self-care (01) | DRG 354 ==
LOC: ED 21:58 → SDC 04-20 01:12 → MS3 04-20 17:21 → ED 04-21 09:32 → SDC 04-21 09:32 → MS3 04-21 13:33
PROVIDERS: Admitting Provider Surgery; Emergency Provider Emergency Medicine; Family Provider Family Medicine Geriatric Medicine; PCP Family Medicine Geriatric Medicine; Visit Provider Surgery
DX: K42.0 Umbilical hernia with obstruction, without gangrene (principal); E66.2 Morbid (severe) obesity with alveolar hypoventilation; Z68.41 Body mass index [BMI] 40.0-44.9, adult; E11.9 Type 2 diabetes mellitus without complications; Z79.4 Long term (current) use of insulin; I10 Essential (primary) hypertension; Z87.891 Personal history of nicotine dependence
CPT/HCPCS: 74019; 74176; 80053; 82962; 85025; 88302; 99284; J7030; J7120; A4216; J2405

== ENCOUNTER 2019-06-18 20:37 | Emergency (ER) | payer OTHER, SELFPAY ==
[2019-04-20 03:02] VITALS: BMI 43.4
[2019-06-18] VITALS (7 sets, daily range): BP systolic 172; BP diastolic 81; PULSE 62–68; RESP 17–28; TEMP 36.8; O2SAT 92–96; BMI 42.7
--- NOTE | 2019-06-18 21:05 | EKG12_ITS ---
Test Reason : SOB Blood Pressure : / mmHG Vent. Rate : 069 BPM Atrial Rate : 069 BPM P-R Int : 150 ms QRS Dur : 094 ms QT Int : 446 ms P-R-T Axes : 000 -10 133 degrees QTc Int : 477 ms Normal sinus rhythm T wave abnormality, consider lateral ischemia Prolonged QT Abnormal ECG Confirmed by GORDON CRAWFORD, PATRICIO ([id number]), medical transcription editor TRACI GALLOWAY ([id number]) on 06/25/2019 9:32:30 A M Referred By: Confirmed By:MARYCARMEN LEYVA MD
--- NOTE | 2019-06-18 21:08 | RAD_ITS ---
STUDY: X-RAY CHEST REASON FOR EXAM: Male, 64 years old. Shortness of breath TECHNIQUE: Single AP portable view of the chest. COMPARISON: None. FINDINGS: supervisor screen printing leads are present. The lungs are clear and expanded. There is no demonstrated pleural abnormality. Normal size heart. Normal mediastinum and carola. Normal visualized pulmonary arteries. Normal visualized aortic arch and descending thoracic aorta. Normal visualized thoracic spine. Normal visualized ribs, clavicles, and shoulders. There is no demonstrated abnormality of the visualized soft tissue structures of the upper abdomen. RAD/Chest 1 View (Portable) IMPRESSION: Normal x-ray examination of the chest. Electronically Signed: Josh Madrigal MD at 21:26 EDT , Service support ,
--- NOTE | 2019-06-18 21:11 | ED.VISSUMM ---
- ER Visit Summary Date of Service: 06/18/19 Chief Complaint: Shortness of breath History of Present Illness: The patient is a 64 M presenting with shortness of breath. Patient states approximately 1 hour ago he started choking on a hard boiled egg. He states that he was choking for several minutes and was unable to catch his breath. He eventually coughed out the hard-boiled egg. He states he continues to feel short of breath. He denies chest pain. He states he feels weak all over. Denies other complaints. Physical Examination: Vitals are stable. Patient is afebrile. Alert no acute distress. HEENT exam is unremarkable. Neck is supple. Lungs are mild expiratory wheezing bilaterally. Heart is regular rate and rhythm. Abdomen is soft nontender nondistended. Extremities are unremarkable. Skin is warm and dry. No focal neurologic deficit. Remainder of exam is unremarkable. Emergency Department Course and Treatment: EKG is sinus rate of 69 with T wave inversion laterally, unchanged from previous. He was given albuterol, Atrovent aerosol. CBC normal except for platelet 136. Chemistries normal except for glucose 119, BUN 35, creatinine 1.77. This is near his baseline. Troponin is negative. Chest x-ray shows no acute process. His ambulatory pulse ox is 93% on room air. Due to concern for aspiration, recommend observation. Patient declines observation. He states he is unable to financially afford this. Family is at bedside. He understands the risks of leaving AGAINST MEDICAL ADVICE including respiratory failure and . He is given Augmentin and a prescription for Augmentin. He is given albuterol MDI. He is advised to follow-up with his primary care physician tomorrow. Advised return to ED for any worsening complaints. Disposition: Discharge home Impression: Choking episode, left AGAINST MEDICAL ADVICE This note was generated with [employer] dictation software. It may contain incorrect words, spelling, and punctuation that were not noted in review of the chart prior to signing ED Disposition - Plan for ED Patient: Instructions: CHOKING SPELL (Adult) Prescriptions: Amox/Clavulanate Tablet [Augmentin Tablet] 875 mg PO Q12H #20 tab Prescription Printed Referrals: Urbano Aranda Chi, MD [Primary Care Provider] -
[2019-06-18 21:18] LABS: Absolute Lymphocyte Count 1.53 X10^3/uL (0.83-4.51); Absolute Neutrophil Count 4.7 X10^3/uL (2.0-7.7); Basophil# 0.02 X10^3/uL; Basophil% 0.3 % (0-1); Eosinophil# 0.11 X10^3/uL; Eosinophils% 1.5 % (0-5); Hematocrit 40.9 % (40-54); Hemoglobin 13.4 g/dL (13.0-16.5); Lymphocyte # 1.53 X10^3/ul (4.0); Lymphocyte % 21.4 % (19-41); Mean Corp Hgb Conc 32.8 g/dL (32-36); Mean Corpuscular Hgb 26.9 pg (27.0-32.0); Mean Platelet Vol. 9.5 fl (6.2-12.0); Monocyte# 0.77 X10^3/uL; Monocyte% 10.8 % (0-10); NRBC Flagged by Analyzer 0 % (0-5); Neutrophil # 4.69 X10^3/uL (2.7-7.7); Neutrophil % 65.7 % (47-70); Platelet Count 136 K/mm3 (150-450); RBC Distribution Width CV 14.3 % (11.6-14.6); RBC Distribution Width SD 41.2 fl (35.1-43.9); Red Blood Count 4.99 M/mm3 (4.6-6.2); White Blood Count 7.1 K/mm3 (4.4-11.0)
[2019-06-18] MEDS: Ipratropium/Albuterol Sulfate 3 ML AMPUL.NEB INHALATION (21:21)
[2019-06-18 21:40] LABS: Anion Gap 9 (5-15); BUN 35 mg/dL (7-18); BUN/Creat Ratio 19.8 RATIO (10-20); Calcium,Total 8.6 mg/dL (8.5-10.1); Chloride 104 mmol/L (98-107); Creatinine, Serum 1.77 mg/dL (0.70-1.30); EST Glomerular Filtration Rate 42 mL/min (>60); Est Glom Filt Rate - Afr Amer 50 mL/min (>60); Estimated Creatinine Clearance 39.94 ml/min; Glucose 119 mg/dL (74-106); Potassium 3.9 mmol/L (3.5-5.1); Sodium Level 141 mmol/L (136-145)
--- NOTE | 2019-06-18 22:35 | ED.RN ---
DURING WALK TEST PATIENT COMPLAINED OF FEELING DIZZY AND STATES THINGS JUST DON'T SEEM REAL. DR. QUEVEDO NOTIFIED.
--- NOTE | 2019-06-18 22:43 | ED.DEP ---
ED Disposition - Plan for ED Patient: Instructions: CHOKING SPELL (Adult) Prescriptions: Amox/Clavulanate Tablet [Augmentin Tablet] 875 mg PO Q12H #20 tablet Referrals: Urbano Aranda Chi, MD [Primary Care Provider] -
[2019-06-18] MEDS: Amox/Clavulanate 875 MG Tablet PO (22:53)
== END 2019-06-18 23:18 | disposition home or self-care (01) ==
LOC: ED 21:37
PROVIDERS: Emergency Provider Emergency Medicine; Family Provider Family Medicine Geriatric Medicine; PCP Family Medicine Geriatric Medicine
DX: R09.89 Other specified symptoms and signs involving the circulatory and respiratory systems (principal); Z53.29 Procedure and treatment not carried out because of patient's decision for other reasons; I10 Essential (primary) hypertension; E11.9 Type 2 diabetes mellitus without complications; Z79.4 Long term (current) use of insulin; Z79.899 Other long term (current) drug therapy; Z87.891 Personal history of nicotine dependence
CPT/HCPCS: 71045; 80048; 84484; 85025; 93005; 94640; 99285; A4216

== ENCOUNTER → 2019-09-08 11:49 | Outpatient (CLI) | payer OTHER, SELFPAY ==
[2019-06-18 20:38] VITALS: BMI 42.7
--- NOTE | 2019-09-08 12:09 | RAD_ITS ---
HISTORY: CONGESTION, CHILLS ADDITIONAL HISTORY: None provided. COMPARISON: 06/18/2019 TECHNIQUE: Frontal and lateral chest radiographs. Number of images including paperwork: 2 FINDINGS: LUNGS AND PLEURA: No consolidation, mass or pleural effusion. Mild right hemidiaphragm elevation CARDIAC SILHOUETTE: Stable. MEDIASTINUM AND STEFANIA: Aortic tortuosity. UPPER ABDOMEN: Unremarkable. SKELETON AND SOFT TISSUES: No acute findings. Degenerative changes. OTHER DEVICES AND HARDWARE: None. RAD/Chest PA and Lateral IMPRESSION: No acute cardiopulmonary abnormality. at 0545 Reported and signed by: Lisa Aquino MD Electronically Signed: Lisa Aquino MD at 5:45 EST Tel , Service support ,
[2019-09-08 12:59] LABS: Absolute Lymphocyte Count 1.61 X10^3/uL (0.83-4.51); Absolute Neutrophil Count 7.1 X10^3/uL (2.0-7.7); Basophil# 0.02 X10^3/uL; Basophil% 0.2 % (0-1); Eosinophil# 0.16 X10^3/uL; Eosinophils% 1.6 % (0-5); Hematocrit 41.3 % (40-54); Hemoglobin 13.3 g/dL (13.0-16.5); Lymphocyte # 1.61 X10^3/ul (4.0); Lymphocyte % 15.9 % (19-41); Mean Corp Hgb Conc 32.2 g/dL (32-36); Mean Corpuscular Hgb 26.1 pg (27.0-32.0); Mean Platelet Vol. 10.2 fl (6.2-12.0); Monocyte# 1.27 X10^3/uL; Monocyte% 12.5 % (0-10); NRBC Flagged by Analyzer 0 % (0-5); Neutrophil # 7.05 X10^3/uL (2.7-7.7); Neutrophil % 69.5 % (47-70); Platelet Count 134 K/mm3 (150-450); RBC Distribution Width CV 14.2 % (11.6-14.6); RBC Distribution Width SD 41.2 fl (35.1-43.9); White Blood Count 10.1 K/mm3 (4.4-11.0)
[2019-09-08 13:25] LABS: Vitamin D,25 Hydroxy 7.4 ng/mL (29.95-100.01)
[2019-09-08 13:35] LABS: ALB/GLOB Ratio 0.7 RATIO (0.9-2.4); AST(SGOT) 28 U/L (15-37); Alanine Aminotransfer ALT/SGPT 37 U/L (16-61); Alkaline Phosphatase 75 U/L (45-117); Anion Gap 4 (5-15); BUN 28 mg/dL (7-18); BUN/Creat Ratio 14.4 RATIO (10-20); Calcium,Total 8.8 mg/dL (8.5-10.1); Chloride 102 mmol/L (98-107); Creatinine, Serum 1.94 mg/dL (0.70-1.30); EST Glomerular Filtration Rate 37 mL/min (>60); Est Glom Filt Rate - Afr Amer 45 mL/min (>60); Globulin 4.1 g/dL (2.2-4.2); Glucose 153 mg/dL (74-106); PSA,Total - Annual Screen 1.09 ng/mL (0.00-4.00); Potassium 4.4 mmol/L (3.5-5.1); Protein, Total 7.1 g/dL (6.4-8.2); Sodium Level 138 mmol/L (136-145)
== END ==
LOC: POLAB3 11:49 → RAD 12:08
PROVIDERS: Family Provider Family Medicine Geriatric Medicine; PCP Family Medicine Geriatric Medicine; Referring Provider Family Medicine Geriatric Medicine; Visit Provider Family Medicine Geriatric Medicine
DX: R68.83 Chills (without fever) (principal); E11.9 Type 2 diabetes mellitus without complications; E55.9 Vitamin D deficiency, unspecified; I10 Essential (primary) hypertension; Z12.5 Encounter for screening for malignant neoplasm of prostate
CPT/HCPCS: 36415; 71046; 80053; 82306; 84153; 84443; 85025; 87633; G0103

== ENCOUNTER 2020-02-19 19:31 | Emergency (ER) | payer OTHER, SELFPAY ==
[2019-06-18 20:38] VITALS: BMI 42.7
[2020-02-19 19:33] VITALS: BP 192/97; PULSE 82; RESP 18; TEMP 36.6; O2SAT 91; BMI 44.4
--- NOTE | 2020-02-19 19:57 | ED.VIS.GEN ---
History of Present Illness Chief Complaint: Wound Informant: Patient Onset: Days Context: Sudden Onset Timing: Continuous Quality: Fluid draining from anterior right leg Location: Anterior mid right leg Current Severity: Mild Maximum Severity: Mild Worsened by: Lymphedema Relieved by: Nothing Associated Symptoms: No associated symptoms Narrative: Patient is a 64-year-old male with diabetes and diabetic neuropathy who presents because he believes a blister ruptured anterior right mid leg. He states fluid has been draining from the leg. He states when he massages his leg more fluid comes out . Patient denies fever, chills night sweats. Patient denies redness, odor to the drainage or red streak up his leg. His blood sugars are not been higher than normal. Prior similar symptoms: No Recent Illness/Hospitalization: No - Past Medical History (1) History of diabetes mellitus Status: Acute (2) History of diabetic neuropathy Status: Acute (3) History of lymphedema Status: Acute (4) History of hypertension Status: Acute (5) History of edema Status: Acute (6) History of ED Status: Acute (7) History of erectile dysfunction Status: Acute Past Medical History - Allergies and Home Meds Allergies/Adverse Reactions: Allergies No Known Allergies Allergy (Verified 02/19/20 19:35) Primary Care Physician: Urbano Aranda Chi, MD [Primary Care Provider] - Prior records reviewed: Yes Surgical History: noncontributory, - - multiple hip and knee procedures, tonsillectomy Lives: Spouse/ Significant Other Smoking Status: Former smoker Alcohol: None Drugs: None Review of Systems General: Denies: Chills, Fever, Malaise, Subjective, Sweats Eyes: Denies: Visual changes - bilaterally, Blurred Vision - bilaterally Cardiovascular: Denies: Chest pain, Palpitations Respiratory: Denies: Dyspnea, Cough, Dyspnea on exertion, Orthopnea, Paroxysmal nocturnal dyspnea Gastrointestinal: Denies: Nausea, Vomiting Musculoskeletal: Reports: Swelling. Denies: Myalgias, Arthralgias, Neck pain, Back pain, Extremity Pain Skin: Reports: Wounds. Denies: Rash, Abscess, Abrasions Neurological: Reports: Parasthesia. Denies: Weakness, Numbness Endocrine: Denies: Polyuria, Polydipsia Hematologic: Denies: Easy bruising, Easy bleeding Physical Exam Vital Signs/Narrative: Vital Signs Temp Pulse Resp BP Pulse Ox 02/19/20 19:33 97.9 F 82 18 192/97 H 91 Inital Vital Signs reviewed: Yes General: Well nourished, Well developed, Obese, No Acute Distress Head: Normocephalic, Atraumatic Eyes: Perrl, EOMI. Negative for: Pale conjunctiva, Scleral icterus ENT: Moist mucous membranes, No rhinorrhea Cardiovascular: Regular rate, Regular rhythm, No murmurs, Normal S1, Normal S2 Respiratory: No distress, CTA bilaterally Extremities: Nontender, Edema - Pitting edema 4-6 mm, - - Has skin avulsion mid anterior right leg. There is serous drainage due to lymphedema. There is no evidence infection i.e. erythema, warmth, induration or lymphangitis. There is no inguinal lymphadenopathy. Skin: Normal color, No rash. Negative for: Cyanosis, Diaphoresis, Jaundice Neurological: Alert, Oriented x3, Cranial nerves II-XII grossly intact, Normal Strength, Normal Sensation, Normal Gait Psychological: Normal affect Diagnostic/Tx/Re-eval - Medical Decision Making Patient has skin avulsion and is draining serous fluid due to lymphedema. Since there is no evidence infection and no other symptoms work-up was not indicated or undertaken. He was referred to the wound clinic. ED Disposition - Plan for ED Patient: Diagnosis: Avulsion of skin of right lower leg, Lymphedema Instructions: ED Lymphedema, ED AVULSION LACERATION Referrals: Urbano Aranda Chi, MD [Primary Care Provider] - Clinic,Wound [None] - 3-5 Days
[2020-02-19 20:04] VITALS: RESP 16
[2020-02-19] MEDS: Diphth,Pertuss(Acell),Tet Vac 0.5 ML Vial IM (20:07)
[2020-02-19 20:09] VITALS: BP 188/87
--- OUTSIDE RECORDS SUMMARY | 2020-06-27 12:08 | XMS RPT_ITS | CCD ---
:1955 External Reference #:[id number] Author Organization [facility] Care Team Providers Name Role Phone Cassie Macario MD Unavailable Medications Medication Name Sig Date Prescriber Location atorvastatin ATORVASTATIN CALCIUM 40 WC Surgical MG TABS One tablet by 7 Associ ates mouth daily (4469 1) ATORVASTATIN CALCIUM [id number] Bell Macario MD Fenofibrate FENOFIBRATE 160 MG TABS [facility] One tablet by mouth daily 7 As sociates FENOFIBRATE (4469 1) [id number] Bell Macario MD hydroCHLOROthiazide HYDROCHLOROTHIAZIDE 12.5 [facility] MG TABS One tablet by 7 Associ ates mouth daily (4469 1) HYDROCHLOROTHIAZIDE [id number] Bell Macario MD Insulin Glargine LANTUS 100 UNIT/ML [facility] Surgical INSULIN 7 Associate s GLARGINE [id number] (62641) Bell Macario MD Insulin, Glulisine, Human APIDRA 100 UNIT/ML [facility] Surgical 40 units three times 7 [facility] daily INSULIN (44 691) GLULISINE [id number] Bell Macario MD Lisinopril LISINOPRIL 20 MG TABS One WC [facility] Surgical tablet by mouth daily 7 Associ ates LISINOPRIL (50554 ) [id number] Bell Macario MD Metoprolol METOPROLOL TARTRATE 25 MG WC [facility] TABS One tablet by mouth 7 Ass ociates twice daily (4469 1) METOPROLOL TARTRATE [id number] Bell Macario MD sildenafil VIAGRA 100 MG TABS as [facility] [place] rg[facility] needed 7 [facility] SILDENAFIL CITRATE (26328) [id number] Bell Macario MD Problems Active Problems Category Problem Name Status Date Location Diabetes mellitus Type 2 diabetes Active 06-14-2017 [facility] without complication mellitus [facility] (91740) Essential hypertension Hypertensive disorder Active - [facility] (446 33) Other nutritional; Body mass index 30+ - Active 06-14-2017 [facility] Surgical endocrine; and obesity Associates (4 4661) metabolic disorders Past or Other Problems Category Problem Name Status Date Location Abdominal hernia Umbilical hernia Completed 06-14-2017 - [facility] ([id number]) Results Result Name Value Range Unit Interpretation Flag Date Location progress on 2019-04 PROGRESS HNO ID: [id number] Normal 05-03-2019 [facility] Author: Jovan Corey [place] ([id number]) Service: ? Author Type: Physician Type: Progress Notes Filed: 05/03/2019 5:51 AM Note Text: FOLLOW UP VISIT - HERNIA NAME: Adam Santiago [facility] NO.: [id number] DATE OF SERVICE: 05/02/2019 : 1955 REFERRING PHYSICIAN: Carrie Aranda MD Adam is a patient I am following for a strangulated supraum bilical hernia. I performed an emergency simple supraumbilical ventr al hernia repair on April 19, 2019. The patient currently notes occasional feeling of dizziness when moving and I choose like elevators. He had a bowel movement yesterd ay and now his abdomen feels less distended. his appetite has been good . he denies fever, chills or abdominal pain. he does note some moderate but improving incisional discomfort. he notes no bulges at the operative s ite VITALS: There were no vitals taken for this visit. On examination, the abdomen is benign. The incision is heali ng well without signs of infection or inflammation. There are no sig ns of recurrent hernia formation. Wesly were removed and Steri-S trips were applied. Assessment IMPRESSION: status post emergency simple supraumbilical vent ral hernia repair PLAN: If the patient notes any problems, he should contact me imme diately. he may return to his regular activities as tolerated, with t he exception of no lifting greater than 20 pounds for the next 6 weeks. Diagnoses: (K42.9) Umbilical hernia without obstruction or g angrene (primary encounter diagnosis) (K43.6) Incarcerated ventral hernia Return to Clinic: The patient is instructed to follow-up wit h me if needed. Jovan Corey MD cnov on 2019-05-02 CNOV Office Visit (GENSWS) Normal 05-02-20 19 [facility] MORRIS,ADAM Pamela ([id number]) 1955 [facility] Date Time Provider Department ([id number]) 05/02/19 1:10 PM JOVAN COREY During your visit today, we recorded the following informati on about you: Jovan Corey MD 05/03/2019 5:51 AM Signed FOLLOW UP VISIT - HERNIA NAME: Adam Morris CLINIC NO.: [id number] DATE OF SERVICE: 05/02/2019 : 1955 REFERRING PHYSICIAN: Carrie Aranda MD Adam is a patient I am following for a strangul ated supraumbilical hernia. I performed an emergency simple supraumbilical ventral h ernia repair on April 19, 2019. The patient currently notes occasional feeling o f dizziness when moving and I choose like elevators. He had a bowel movement yesterd ay and now his abdomen feels less distended. his appetite has been good. he d enies fever, chills or abdominal pain. he does note some moderate but improving inc isional discomfort. he notes no bulges at the operative site VITALS: There were no vitals taken for this visit. On examination, the abdomen is benign. The incision is hea ling well without signs of infection or inflammation. There are no signs of re current hernia formation. Wesly were removed and Steri-Strips were applie d. Assessment IMPRESSION: status post emergency simple supraum bilical ventral hernia repair PLAN: If the patient notes any problems, he should contact me imme diately. he may return to his regular activities as tolerated, with th e exception of no lifting greater than 20 pounds for the next 6 weeks. Diagnoses: (K42.9) Umbilical hernia without obstructio n or gangrene (primary encounter diagnosis) (K43.6) Incarcerated ventral hernia Return to Clinic: The patient is instructed to follow-up w ith me if needed. Jovan Corey MD Referring Provider: CARRIE ARANDA CHI [[id number]] Allergies As of Date: 05/02/2019 (No Known Allergies) Date Reviewed: 05/02/2019 Reviewed by: Moraima Hogan LPN - Fully Assessed Reason for Visit: Post Op [174] Primary Visit Diagnosis:Umbi lical hernia without obstruction or gangrene [K42.9] Other Visit Diagnosis:Incarcerated ventral hernia [K43.6] Prescriptions as of 05/02/2019 Sig: METOPROLOL TARTRATE 25 MG TAB* Take 25 mg by mouth twice xiang * ATORVASTATIN 40 MG TABLET Take 40 mg by mouth daily at * INSULIN GLARGINE (U-100) 100 * Inject 60 Units subcutaneousl * Patient taking differently: Inject 70 Units subcutaneousl* INSULIN GLULISINE (U-100) 100* Inject 30 Units subcutaneousl * Patient taking differently: Inject 40 Units subcutaneousl* BLOOD SUGAR DIAGNOSTIC STRIPS Check blood sugar 4 times a d* HYDROCHLOROTHIAZIDE 12.5 MG C* Take 1 capsule by mouth once * LISINOPRIL 40 MG TABLET Take 1 tablet by mouth once d* FENOFIBRATE 160 MG TABLET Take 1 tablet by mouth once d* ACYCLOVIR 800 MG TABLET Take one tab three times a da* Patient not taking: Reported on 04/24/2019 SILDENAFIL 100 MG TABLET Take 1 tablet by mouth as dir* Problem List As Of Date 05/02/2019 Noted Resolved DIABETES MELLITUS TYPE I-UNCOMPL [E10.9] INVALID FOR* 009 Essential Hypertension, Benign [I10] INVALID FOR*05/09/2010 Low back pain [M54.5] INVALID FOR* More... COPD (chronic obstructive pulmonary disease) (H*INVALID FOR* Morbid (severe) obesity due to excess calories *INVALID FOR* Vertigo [R42] INVALID FOR* Hip arthritis [M16.10] INVALID FOR* History of colon polyps [Z86.010] S/P hip replacement [Z96.649] INVALID FOR* Proliferative diabetic retinopathy of both eyes*INVALID FOR* More... HTN (hypertension) [I10] INVALID FOR* Hyperlipaemia [E78.5] INVALID FOR* Secondary diabetes mellitus with proteinuria or*INVALID FOR* DM (diabetes mellitus), type 2, uncontrolled (H*INVALID FOR* Erectile dysfunction [N52.9] INVALID FOR* Venous stasis [I87.8] INVALID FOR* Letter Text Encounter Status:Closed by JOVAN COREY MD on 05/03/19 progress on 2019-04 PROGRESS HNO ID: [id number] Normal 04-26-2019 [facility] Author: Jovan Corey [place] ([id number]) Service: ? Author Type: Physician Type: Progress Notes Filed: 04/26/2019 11:56 AM Note Text: OPERATIVE NOTATION FOR [facility] SURGICAL P ROCEDURE. April 20, 2019 Adam Morris 1955 [id number] male PROCEDURE: incarcerated umbilical hernia repair - [id number] SURGEON: Cliff Corey M.D. FACS PET CARE ATTENDANT: None DEPT: WQ PROVIDER: [id number] Corey MD POS: [id number] DIAGNOSIS: (K43.6) Incarcerated ventral hernia (primary enco unter diagnosis) ASA CLASS: 3E - severe emergency FINDINGS: COMPLICATIONS: None PMHx - PAST MEDICAL HISTORY Diagnosis Date - Carpal tunnel syndrome - COPD (chronic obstructive pulmonary disease) (HCC) - DM (diabetes mellitus), type 2, uncontrolled (HCC) 02/19/20 15 - Hip arthritis 11/09/2011 - History of colon polyps 2000 - HTN (hypertension) 12/30/2014 - Hyperlipaemia 12/30/2014 - Low back pain - Obesity - Proliferative diabetic retinopathy of both eyes (HCC) 10/02 Dilated Retinal Exam-Dr Rizwan Sotelo on 09/29/2014: Few small hemorrhages on the left eye and a single dot hemorrhage on right eye. - S/P hip replacement 01/16/2013 - Secondary diabetes mellitus with proteinuria or albuminuri a 01/07/2015 - SOB (shortness of breath) COMORBIDITIES - Obesity, Chronic Pulmonary, COPD, HTN and ID DM Post Op Occurrences - None Wound Classification - Clean Operative note dictated in the [facility] di ctation system. Jovan Corey MD PROGRESS HNO ID: [id number] Normal 04-26-2019 [facility] Author: Jovan Corey [place] ([id number]) Service: ? Author Type: Physician Type: Progress Notes Filed: 04/26/2019 9:13 AM Note Text: FOLLOW UP VISIT - HERNIA NAME: Adam Morris [facility] NO.: [id number] DATE OF SERVICE: 04/24/2019 : 1955 REFERRING PHYSICIAN: Carrie Aranda MD Adam is a patient I am following for a strangulated supraum bilical hernia. I performed an emergency simple supraumbilical ventr al hernia repair on April 19, 2019. The patient currently notes occasional feeling of dizziness when moving and I choose like elevators. He had a bowel movement yesterd ay and now his abdomen feels less distended. his appetite has been good . he denies fever, chills or abdominal pain. he does note some moderate but improving incisional discomfort. he notes no bulges at the operative s ite VITALS: Blood pressure 180/90, pulse 74, temperature (!) 35. 9 ?C (96.7 ?F), temperature source Temporal Artery, height 170.2 cm (5' 7), weight 122.5 kg (270 lb), SpO2 95 %. On examination, the abdomen is benign. The incision is heali ng well without signs of infection or inflammation. There are no sig ns of recurrent hernia formation. Assessment IMPRESSION: status post emergency simple supraumbilical vent ral hernia repair PLAN: If the patient notes any problems, he should contact me imme diately. he may return to his regular activities as tolerated, with t he exception of no lifting greater than 20 pounds for the next 7 weeks. Diagnoses: (E11.65) Uncontrolled type 2 diabetes mellitus wi th hyperglycemia (HCC) (primary encounter diagnosis) (K42.9) Umbilical hernia without obstruction or gangrene Return to Clinic: The patient is instructed to follow-up wit h my staff next week for staple removal. MD erick Lezama on 2019-04-24 CNOV Office Visit (GENSWS) Normal 04-24-20 [facility] ADAM MORRIS ([id number]) 1955 [facility] Date Time Provider Department ([id number]) 04/24/19 1:30 PM OJVAN COREY During your visit today, we recorded the following informati on about you: Temperature Pulse Blood pressure Weight 96.7 degrees 74/minute 180/90 122.5 kg Height 1.702 m Jovan Corey MD 04/26/2019 9:13 AM Signed FOLLOW UP VISIT - HERNIA NAME: Adam Morris CLINIC NO.: [id number] DATE OF SERVICE: 04/24/2019 : 1955 REFERRING PHYSICIAN: Carrie Aranda MD Adam is a patient I am following for a strangul ated supraumbilical hernia. I performed an emergency simple supraumbilical ventral h ernia repair on April 19, 2019. The patient currently notes occasional feeling o f dizziness when moving and I choose like elevators. He had a bowel movement yesterd ay and now his abdomen feels less distended. his appetite has been good. he d enies fever, chills or abdominal pain. he does note some moderate but improving inc isional discomfort. he notes no bulges at the operative site VITALS: Blood pressure 180/90, pulse 74, temperature (!) 3 5.9 ?C (96.7 ?F), temperature source Temporal Artery, height 170.2 cm (5 ' 7), weight 122.5 kg (270 lb), SpO2 95 %. On examination, the abdomen is benign. The incision is hea ling well without signs of infection or inflammation. There are no signs of re current hernia formation. Assessment IMPRESSION: status post emergency simple supraum bilical ventral hernia repair PLAN: If the patient notes any problems, he should contact me imme diately. he may return to his regular activities as tolerated, with th e exception of no lifting greater than 20 pounds for the next 7 weeks. Diagnoses: (E11.65) Uncontrolled type 2 diabetes tenai tus with hyperglycemia (HCC) (primary encounter diagnosis) (K42.9) Umbilical hernia without obstruction or gangrene Return to Clinic: The patient is instructed to follow-up wit h my staff next week for staple removal. Jovan Corey MD Referring Provider: SELF [[id number]] Allergies As of Date: 04/24/2019 (No Known Allergies) Date Reviewed: 04/24/2019 Reviewed by: Patrizia Vogt RN - Fully Assessed Reason for Visit: Post Op [174] Primary Visit Diagnosis:Uncontrolled type 2 diabetes mellitu s with hyperglycemia (HCC) [E11.65] Other Visit Diagnosis:Umbilical hernia w ithout obstruction or gangrene [K42.9] Prescriptions as of 04/24/2019 Sig: METOPROLOL TARTRATE 25 MG TAB* Take 25 mg by mouth twice xiang * ATORVASTATIN 40 MG TABLET Take 40 mg by mouth daily at * INSULIN GLARGINE (U-100) 100 * Inject 60 Units subcutaneousl * Patient taking differently: Inject 70 Units subcutaneousl* INSULIN GLULISINE (U-100) 100* Inject 30 Units subcutaneousl * Patient taking differently: Inject 40 Units subcutaneousl* BLOOD SUGAR DIAGNOSTIC STRIPS Check blood sugar 4 times a d* HYDROCHLOROTHIAZIDE 12.5 MG C* Take 1 capsule by mouth once * LISINOPRIL 40 MG TABLET Take 1 tablet by mouth once d* FENOFIBRATE 160 MG TABLET Take 1 tablet by mouth once d* SILDENAFIL 100 MG TABLET Take 1 tablet by mouth as dir* ACYCLOVIR 800 MG TABLET Take one tab three times a da* Patient not taking: Reported on 04/24/2019 Problem List As Of Date 04/24/2019 Noted Resolved DIABETES MELLITUS TYPE I-UNCOMPL [E10.9] INVALID FOR* 009 Essential Hypertension, Benign [I10] INVALID FOR*05/09/2010 Low back pain [M54.5] INVALID FOR* More... COPD (chronic obstructive pulmonary disease) (H*INVALID FOR* Morbid (severe) obesity due to excess calories *INVALID FOR* Vertigo [R42] INVALID FOR* Hip arthritis [M16.10] INVALID FOR* History of colon polyps [Z86.010] S/P hip replacement [Z96.649] INVALID FOR* Proliferative diabetic retinopathy of both eyes*INVALID FOR* More... HTN (hypertension) [I10] INVALID FOR* Hyperlipaemia [E78.5] INVALID FOR* Secondary diabetes mellitus with proteinuria or*INVALID FOR* DM (diabetes mellitus), type 2, uncontrolled (H*INVALID FOR* Erectile dysfunction [N52.9] INVALID FOR* Venous stasis [I87.8] INVALID FOR* Letter Text Letter Text Encounter Status:Closed by JOVAN COREY MD on 04/26/19 office visit: umbilical hernia, dm on 2017-06-14 Fall risk No Invalid 06-14-2017 [facility] Bao gical assessment Interpretation Code 7 [facility] ([id number]) Protein mass conc Done Invalid 06-14-2017 [facility] Surgical Interpretation Code 06-14-2017 [facility] ([id number]) Tobacco smoking Never Invalid 06-14-2017 - [facility] Surgical status [facility] Interpretation Code 06-14-20 17 [facility] (00156) Tobacco smoking Never smoker Invalid 06-14-2017 [facility] Surgical status [facility] Interpretation Code 06-14-20 17 [facility] (50389) Vital Signs Vital Sign Description Value / Unit Date Location The following section is limited to 5 en tries per type and includes entries from the following time range: 20170614 - 5. BMI (Body Mass Index) 40.72 kg/m2 06-14-2017 - 06-14-2017 [facility] ([id number]) BP Diastolic 89 mm[Hg] 06-14-2017 - 06-14-2017 [facility] ([id number]) BP Systolic 171 mm[Hg] 06-14-2017 - 06-14-2017 [facility] ([id number]) Height 170.18 cm 06-14-201706-14-2017 [facility] ([id number]) Pulse (Heart Rate) 60 /min 10-05-201606-14-2017 [facility] S [facility] (93645) Respiratory Rate 18 /min 06-14-2017 - 06-14-2017 [facility] (65305) Weight 117.94 kg 06-14-2017 - 06-14-2017 [facility] ([id number]) Plan of Treatment Plan Description Date Location Follow Up Appt Other Follow Up Appt Other 06-14-2017 - [facility] [place] [facility] 06-18-2017 (34696) Summary Purpose Family History No Family History Records Found Advance Directives No Advanced Directives Records Found Additional Source Comments FOR RECORDS PERTAINING TO PATIENTS WHO ARE OR HAVE BEEN ENROLLED IN A CHEMICAL DEPENDENCY/SUBSTANCE ABUSE PROGRAM, SOME INFORMATION MAY BE OMITTED. This clinical summary was aggregated from multiple sources. Caution should be exercised in using it in the provision of clinical care. This summary normalizes information from multiple sources, and as a consequence, information in this document may materially changethe coding, format and clinical context of patient data. In addition, data may be omittedin some cases. CLINICAL DECISIONS SHOULD BE BASED ON THE PRIMARY CLINICAL RECORDS. [facility] provides no warranty or guarantee of the accuracy or completeness of information in this document. UNRECOGNIZED CONTENT PROVIDED BELOW FOR UNRECOGNIZED SECTION No Status Records Found UNRECOGNIZED CONTENT PROVIDED BELOW FOR UNRECOGNIZED SECTION INFORMATION SOURCE DATE CREATED AUTHOR AUTHOR'S ORGANIZATIO N 05/03/2019 [facility] yoli
--- OUTSIDE RECORDS SUMMARY | 2020-06-27 12:09 | XMS RPT_ITS | CCD ---
:1955 External Reference #:[id number] Author Organization [facility] Care Team Providers Name Role Phone Cassie Macario MD Unavailable Medications Medication Name Sig Date Prescriber Location atorvastatin ATORVASTATIN CALCIUM 40 WC Surgical MG TABS One tablet by 7 Associ ates mouth daily (4469 1) ATORVASTATIN CALCIUM [id number] Bell Macario MD Fenofibrate FENOFIBRATE 160 MG TABS WC Surgical One tablet by mouth daily 7 As sociates FENOFIBRATE (4469 1) [id number] Bell Macario MD hydroCHLOROthiazide HYDROCHLOROTHIAZIDE 12.5 WC Surgical MG TABS One tablet by 7 Associ ates mouth daily (4469 1) HYDROCHLOROTHIAZIDE [id number] Bell Macario MD Insulin Glargine LANTUS 100 UNIT/ML SOLN [facility] Surgical INSULIN 7 Associate s GLARGINE [id number] ([id number]) Bell Macario MD Insulin, Glulisine, Human APIDRA 100 UNIT/ML SOLN [facility] Surgical 40 units three times 7 Associa shantal daily INSULIN (44 691) GLULISINE [id number] Bell Macario MD Lisinopril LISINOPRIL 20 MG TABS One WC H Surgical tablet by mouth daily 7 Associ ates LISINOPRIL (42386 ) [id number] Bell Macario MD Metoprolol METOPROLOL TARTRATE 25 MG WC H Surgical TABS One tablet by mouth 7 Ass ociates twice daily (4469 1) METOPROLOL TARTRATE [id number] Bell Macario MD sildenafil VIAGRA 100 MG TABS as [facility] [place] rgical needed 7 Associates SILDENAFIL CITRATE (34309) [id number] Bell Macario MD Problems Active Problems Category Problem Name Status Date Location Diabetes mellitus Type 2 diabetes Active 06-14-2017 [facility] Bao gical without complication mellitus Associa hsantal (13349) Essential hypertension Hypertensive disorder Active - [facility] Surgical Associates (446 77) Other nutritional; Body mass index 30+ - Active 06-14-2017 [facility] Surgical endocrine; and obesity Associates (4 4660) metabolic disorders Past or Other Problems Category Problem Name Status Date Location Abdominal hernia Umbilical hernia Completed 06-14-2017 - [facility]ao gical Associates (74350) Results Result Name Value Range Unit Interpretation Flag Date Location progress on 2019-04 PROGRESS HNO ID: [id number] Normal 05-03-2019 [facility] Author: Jovan Corey [place] ([id number]) Service: ? Author Type: Physician Type: Progress Notes Filed: 05/03/2019 5:51 AM Note Text: FOLLOW UP VISIT - HERNIA NAME: Adam Santiago [facility] NO.: [id number] DATE OF SERVICE: 05/02/2019 : 1955 REFERRING [...] CNOV Office Visit (GENSWS) Normal 05-02-20 19 [facility] MORRIS,ADAM Pamela ([id number]) 1955 [facility] Date Time Provider Department ([id number]) 05/02/19 1:10 PM JOVAN COREY During your visit today, we recorded the following informati on about you: Jovan Corey MD 05/03/2019 5:51 AM Signed FOLLOW UP VISIT - HERNIA NAME: Adam Morris CLINIC NO.: [id number] DATE OF SERVICE: 05/02/2019 : 1955 REFERRING [...] Corey MD Referring Provider: CARRIE ARANDA CHI [[id number]] Allergies As of Date: 05/02/2019 (No Known [...] 05/03/19 progress on 2019-04 PROGRESS HNO ID: [id number] Normal 04-26-2019 [facility] Author: Jovan Corey [place] ([id number]) Service: ? Author Type: Physician Type: Progress Notes Filed: 04/26/2019 11:56 AM Note Text: OPERATIVE NOTATION FOR [facility] SURGICAL P ROCEDURE. April 20, 2019 Adam Morris 1955 [id number] male PROCEDURE: incarcerated umbilical hernia repair - 41438-137 SURGEON: Cliff Corey M.D. FACS GANG BOSS: None DEPT: WQ PROVIDER: [id number] Corey MD POS: [id number] DIAGNOSIS: (K43.6) Incarcerated ventral hernia (primary enco [...] - Clean Operative note dictated in the [facility] di ctation system. Jovan Corey MD PROGRESS HNO ID: [id number] Normal 04-26-2019 [facility] Author: Jovan Corey [place] ([id number]) Service: ? Author Type: Physician Type: Progress Notes Filed: 04/26/2019 9:13 AM Note Text: FOLLOW UP VISIT - HERNIA NAME: Adam Morris [facility] NO.: [id number] DATE OF SERVICE: 04/24/2019 : 1955 REFERRING [...] 2019-04-24 CNOV Office Visit (GENSWS) Normal 04-24-20 [facility] ADAM MORRIS ([id number]) 1955 [facility] Date Time Provider Department ([id number]) 04/24/19 1:30 PM JOVAN COREY During your visit today, we recorded the following informati on about you: Temperature Pulse Blood pressure Weight 96.7 degrees 74/minute 180/90 122.5 kg Height 1.702 m Jovan Corey MD 04/26/2019 9:13 AM Signed FOLLOW UP VISIT - HERNIA NAME: Adam Morris CLINIC NO.: [id number] DATE OF SERVICE: 04/24/2019 : 1955 REFERRING [...] on 2017-06-14 Fall risk No Invalid 06-14-2017 [facility] Bao gical assessment Interpretation Code 7 Associates (51776) Protein mass conc Done Invalid 06-14-2017 [facility] Surgical Interpretation Code 06-14-2017 Associates (62817) Tobacco smoking Never Invalid 06-14-2017 - [facility] Surgical status [facility] Interpretation Code 06-14-20 17 Associates (92204) Tobacco smoking Never smoker Invalid 06-14-2017 [facility] Surgical status [facility] Interpretation Code 06-14-20 17 Associates (83038) Vital Signs Vital Sign Description Value / Unit Date Location The following section is limited to 5 en tries per type and includes entries from the following time range: 20170614 - 5. BMI (Body Mass Index) 40.72 kg/m2 06-14-2017 - 06-14-2017 [facility] Surgical Associates (38693) BP Diastolic 89 mm[Hg] 06-14-2017 - 06-14-2017 [facility] Surg ical Associates (11431) BP Systolic 171 mm[Hg] 06-14-2017 - 06-14-2017 [facility] Surg ical Associates (46646) Height 170.18 cm 06-14-201706-14-2017 [facility] Surg ical Associates (19844) Pulse (Heart Rate) 60 /min 10-05-201606-14-2017 [facility] S urgical Associates (92350) Respiratory Rate 18 /min 06-14-2017 - 06-14-2017 [facility] Bao gical Associates (32379) Weight 117.94 kg 06-14-2017 - 06-14-2017 [facility] Surg ical Associates (53626) Plan of Treatment Plan Description Date Location Follow Up Appt Other Follow Up Appt Other 06-14-2017 - [facility] [place] rgical Associates 06-18-2017 (68052) Summary Purpose Family History No Family History [...] BE BASED ON THE PRIMARY CLINICAL RECORDS. [facility] provides no warranty or guarantee of the accuracy or completeness of information in this document. UNRECOGNIZED CONTENT PROVIDED BELOW FOR UNRECOGNIZED SECTION No Status Records Found UNRECOGNIZED CONTENT PROVIDED BELOW FOR UNRECOGNIZED SECTION INFORMATION SOURCE DATE CREATED AUTHOR AUTHOR'S ORGANIZATIO N 05/03/2019 [facility] yoli
== END 2020-02-19 20:31 | disposition home or self-care (01) ==
LOC: ED 20:10
PROVIDERS: Emergency Provider Emergency Medicine; PCP Family Medicine Geriatric Medicine
DX: S81.801A Unspecified open wound, right lower leg, initial encounter (principal); X58.XXXA Exposure to other specified factors, initial encounter; Y93.9 Activity, unspecified; Y92.9 Unspecified place or not applicable; Y99.9 Unspecified external cause status; Z23 Encounter for immunization; I89.0 Lymphedema, not elsewhere classified; E11.40 Type 2 diabetes mellitus with diabetic neuropathy, unspecified; I10 Essential (primary) hypertension; E66.9 Obesity, unspecified; Z79.4 Long term (current) use of insulin; Z79.899 Other long term (current) drug therapy; Z87.891 Personal history of nicotine dependence
CPT/HCPCS: 90471; 90715; 99282

== ENCOUNTER → 2020-02-23 | Outpatient (CLI) | payer OTHER, SELFPAY ==
[2020-02-19 19:33] VITALS: BMI 44.4
[2020-02-23 17:00] LABS: Basophil# 0.04 X10^3/uL; Basophil% 0.5 % (0-1); Eosinophil# 0.13 X10^3/uL; Eosinophils% 1.5 % (0-5); Hemoglobin 13.2 g/dL (13.0-16.5); Lymphocyte % 19.9 % (19-41); Mean Corp Hgb Conc 31.4 g/dL (32-36); Mean Corpuscular Hgb 25.9 pg (27.0-32.0); Mean Corpuscular Volume 82.4 fL (80-94); Mean Platelet Vol. 10.6 fl (6.2-12.0); Monocyte# 0.68 X10^3/uL; NRBC Flagged by Analyzer 0.2 % (0-5); Neutrophil # 5.95 X10^3/uL (2.7-7.7); Neutrophil % 69.6 % (47-70); POSITIVE COUNT YES; Platelet Count 180 K/mm3 (150-450); RBC Distribution Width CV 14.4 % (11.6-14.6); RBC Distribution Width SD 43.1 fl (35.1-43.9); White Blood Count 8.5 K/mm3 (4.4-11.0)
[2020-02-23 17:03] LABS: Differential Indicated SCAN CRITERIA MET
[2020-02-23 17:27] LABS: ALB/GLOB Ratio 0.9 RATIO (0.9-2.4); AST(SGOT) 39 U/L (15-37); Alanine Aminotransfer ALT/SGPT 40 U/L (16-61); Albumin, Serum 3.3 g/dL (3.2-5.0); Alkaline Phosphatase 68 U/L (45-117); Anion Gap 9 (5-15); BUN 29 mg/dL (7-18); BUN/Creat Ratio 14.3 RATIO (10-20); Calcium,Total 9.2 mg/dL (8.5-10.1); Chloride 102 mmol/L (98-107); Creatinine, Serum 2.03 mg/dL (0.70-1.30); EST Glomerular Filtration Rate 35 mL/min (>60); Est Glom Filt Rate - Afr Amer 43 mL/min (>60); Globulin 3.6 g/dL (2.2-4.2); Glucose 148 mg/dL (74-106); Potassium 3.6 mmol/L (3.5-5.1); Protein, Total 6.9 g/dL (6.4-8.2); Sodium Level 141 mmol/L (136-145); Thyroid Stim Hormone (TSH) 1.72 uIU/mL (0.358-3.74)
[2020-02-23 19:11] LABS: M R Staph aureus DNA By PCR Negative (Negative); Probe Check PASS; Staph aureus DNA By PCR NEGATIVE (Negative)
[2020-02-23 19:44] LABS: Platelet Estimate ADEQUATE (ADEQ); Red Cell Morphology NORM C+C NORMAL (NORM C&C)
--- OUTSIDE RECORDS SUMMARY | 2020-06-27 13:46 | XMS RPT_ITS | CCD ---
:1955 External Reference #:[id number] Author Organization [facility] Care Team Providers Name Role Phone Cassie Macario MD Unavailable Medications Medication Name Sig Date Prescriber Location atorvastatin ATORVASTATIN CALCIUM 40 WC Surgical MG TABS One tablet by 7 Associ ates mouth daily (4469 1) ATORVASTATIN CALCIUM [id number] Bell Macario MD Fenofibrate FENOFIBRATE 160 MG TABS WC Surgical One tablet by mouth daily 7 As sociates FENOFIBRATE (4469 1) [id number] Bell Macario MD hydroCHLOROthiazide HYDROCHLOROTHIAZIDE 12.5 WC Surgical MG TABS One tablet by 7 Associ ates mouth daily (4469 1) HYDROCHLOROTHIAZIDE [id number] Bell Macario MD Insulin Glargine LANTUS 100 UNIT/ML SOLN [facility] Surgical INSULIN 7 Associate s GLARGINE [id number] (69126) Bell Macario MD Insulin, Glulisine, Human APIDRA 100 UNIT/ML SOLN [facility] Surgical 40 units three times 7 Associa shantal daily INSULIN (44 691) GLULISINE [id number] Bell Macario MD Lisinopril LISINOPRIL 20 MG TABS One WC H Surgical tablet by mouth daily 7 Associ ates LISINOPRIL (69268 ) [id number] Bell Macario MD Metoprolol METOPROLOL TARTRATE 25 MG WC H Surgical TABS One tablet by mouth 7 Ass ociates twice daily (4469 1) METOPROLOL TARTRATE [id number] Bell Macario MD sildenafil VIAGRA 100 MG TABS as [facility] [place] rg[place] needed 7 Associates SILDENAFIL CITRATE (70553) [id number] Bell Macario MD Problems Active Problems Category Problem Name Status Date Location Diabetes mellitus Type 2 diabetes Active 06-14-2017 [facility] Bao gical without complication mellitus Associa shantal (30116) Essential hypertension Hypertensive disorder Active - [facility] Surgical Associates (446 41) Other nutritional; Body mass index 30+ - Active 06-14-2017 [facility] Surgical endocrine; and obesity Associates (4 4657) metabolic disorders Past or Other Problems Category Problem Name Status Date Location Abdominal hernia Umbilical hernia Completed 06-14-2017 - [facility] Bao gical Associates (83030) Results Result Name Value Range Unit Interpretation Flag Date Location progress on 2019-04 PROGRESS HNO ID: [id number] Normal 05-03-2019 [facility] Author: Jovan Corey [place] ([id number]) Service: ? Author Type: Physician Type: Progress Notes Filed: 05/03/2019 5:51 AM Note Text: FOLLOW UP VISIT - HERNIA NAME: Adam Santiago [facility] NO.: [id number] DATE OF SERVICE: 05/02/2019 : 1955 REFERRING [...] CNOV Office Visit (GENSWS) Normal 05-02-20 19 [facility] MORRIS,ADAM Pamela ([id number]) 1955 [facility] Date Time Provider Department (66677) 05/02/19 1:10 PM JOVAN COREY During your visit today, we recorded the following informati on about you: Jovan Corey MD 05/03/2019 5:51 AM Signed FOLLOW UP VISIT - HERNIA NAME: Adam Morris CLINIC NO.: [id number] DATE OF SERVICE: 05/02/2019 : 1955 REFERRING [...] Corey MD Referring Provider: CARRIE ARANDA CHI [[id number]] Allergies As of Date: 05/02/2019 (No Known [...] 05/03/19 progress on 2019-04 PROGRESS HNO ID: [id number] Normal 04-26-2019 [facility] Author: Jovan Corey [place] ([id number]) Service: ? Author Type: Physician Type: Progress Notes Filed: 04/26/2019 11:56 AM Note Text: OPERATIVE NOTATION FOR [facility] SURGICAL P ROCEDURE. April 20, 2019 Adam Morris 1955 [id number] male PROCEDURE: incarcerated umbilical hernia repair - [id number] SURGEON: Cliff Corey M.D. FACS PATIENT'S LIBRARIAN: None DEPT: WQ PROVIDER: [id number] Corey MD POS: [id number] DIAGNOSIS: (K43.6) Incarcerated ventral hernia (primary enco [...] - Clean Operative note dictated in the [facility] di ctation system. Jovan Corey MD PROGRESS HNO ID: [id number] Normal 04-26-2019 [facility] Author: Jovan Corey [place] ([id number]) Service: ? Author Type: Physician Type: Progress Notes Filed: 04/26/2019 9:13 AM Note Text: FOLLOW UP VISIT - HERNIA NAME: Adam Morris [facility] NO.: [id number] DATE OF SERVICE: 04/24/2019 : 1955 REFERRING [...] 2019-04-24 CNOV Office Visit (GENSWS) Normal 04-24-20 [facility] ADAM MORRIS ([id number]) 1955 [facility] Date Time Provider Department (16651) 04/24/19 1:30 PM JOVAN COREY During your visit today, we recorded the following informati on about you: Temperature Pulse Blood pressure Weight 96.7 degrees 74/minute 180/90 122.5 kg Height 1.702 m Jovan Corey MD 04/26/2019 9:13 AM Signed FOLLOW UP VISIT - HERNIA NAME: Adam Morris CLINIC NO.: [id number] DATE OF SERVICE: 04/24/2019 : 1955 REFERRING [...] on 2017-06-14 Fall risk No Invalid 06-14-2017 [facility] Bao gical assessment Interpretation Code 7 Associates (46886) Protein mass conc Done Invalid 06-14-2017 [facility] Surgical Interpretation Code 06-14-2017 Associates (20442) Tobacco smoking Never Invalid 06-14-2017 - [facility] Surgical status [facility] Interpretation Code 06-14-20 17 Associates (42608) Tobacco smoking Never smoker Invalid 06-14-2017 [facility] Surgical status [facility] Interpretation Code 06-14-20 17 Associates (54606) Vital Signs Vital Sign Description Value / Unit Date Location The following section is limited to 5 en tries per type and includes entries from the following time range: 20170614 - 5. BMI (Body Mass Index) 40.72 kg/m2 06-14-2017 - 06-14-2017 [facility] Surgical Associates (46059) BP Diastolic 89 mm[Hg] 06-14-2017 - 06-14-2017 [facility] Surg ical Associates (08236) BP Systolic 171 mm[Hg] 06-14-2017 - 06-14-2017 [facility] Surg ical Associates (63625) Height 170.18 cm 06-14-201706-14-2017 [facility] Surg ical Associates (18822) Pulse (Heart Rate) 60 /min 10-05-201606-14-2017 [facility] S urgical Associates (04087) Respiratory Rate 18 /min 06-14-2017 - 06-14-2017 [facility] Bao gical Associates (41135) Weight 117.94 kg 06-14-2017 - 06-14-2017 [facility] Surg ical Associates (02253) Plan of Treatment Plan Description Date Location Follow Up Appt Other Follow Up Appt Other 06-14-2017 - [facility] [place] [facility] Associates 06-18-2017 (75771) Summary Purpose Family History No Family History [...] BE BASED ON THE PRIMARY CLINICAL RECORDS. [facility] provides no warranty or guarantee of the accuracy or completeness of information in this document. UNRECOGNIZED CONTENT PROVIDED BELOW FOR UNRECOGNIZED SECTION No Status Records Found UNRECOGNIZED CONTENT PROVIDED BELOW FOR UNRECOGNIZED SECTION INFORMATION SOURCE DATE CREATED AUTHOR AUTHOR'S ORGANIZATIO N 05/03/2019 [facility] yoli
== END | disposition home or self-care (01) ==
LOC: POLAB3 14:56
PROVIDERS: Internal Medicine Nephrology; PCP Family Medicine Geriatric Medicine; Visit Provider Family Medicine Geriatric Medicine
DX: E11.9 Type 2 diabetes mellitus without complications (principal); F52.8 Other sexual dysfunction not due to a substance or known physiological condition
CPT/HCPCS: 36415; 80053; 84403; 84443; 85025; 87070; 87205; 87640

== ENCOUNTER → 2020-03-10 13:53 | Outpatient (CLI) | payer OTHER, SELFPAY ==
[2020-02-19 19:33] VITALS: BMI 44.4
[2020-03-10 16:36] LABS: Rheumatoid Factor < 10.0 IU/mL (<15)
[2020-03-11 14:53] LABS: Hepatitis B Surface Antibody Non-Reactive; Hepatitis B Surface Antigen Non-Reactive (Nonreactive)
[2020-03-13 14:41] LABS: ANTINUCLEAR ANTIBODIES DIRECT Negative (Negative)
[2020-03-16 16:08] LABS: Alpha-1-Globulins 0.2 g/dL (0.0-0.4); Gamma Globulin 0.7 g/dL (0.4-1.8); Immunoglobulin A 174 mg/dL (61-437); Immunoglobulin G 818 mg/dL (603-1613); Immunoglobulin M 65 mg/dL (20-172); PROEL- TOTAL PROTEIN 6.6 g/dL (6.0-8.5); PROELU- Alpha-1-Globulin,Ur 2.8 % (.); PROELU- Alpha-2-Globulin,Ur 5.6 % (.); PROELU- Beta Globulin, Ur 9.9 % (.); PROELU- Gamma Globulin, Ur 8.7 % (.)
[2020-03-16 20:35] LABS: Hepatitis Be Ab Negative (Negative); Total Protein, Ur 579.4 mg/dL (Not Estab.)
== END ==
PROVIDERS: Internal Medicine Nephrology; PCP Family Medicine Geriatric Medicine; Visit Provider Family Medicine Geriatric Medicine
DX: R80.8 Other proteinuria (principal)
CPT/HCPCS: 36415; 82784; 84165; 84166; 86038; 86334; 86431; 86706; 86707; 87340

== ENCOUNTER → 2020-04-21 11:59 | Outpatient (CLI) | payer OTHER, SELFPAY ==
--- NOTE | 2020-04-21 12:09 | RAD_ITS ---
STUDY: X-RAY CHEST REASON FOR EXAM: Male, 64 years old. Increasing SOB since August -- cough TECHNIQUE: PA and lateral views of the chest. COMPARISON: Comparison is made with prior study dated 09/08/2019. FINDINGS: Stable elevation of the right hemidiaphragm. Scattered calcified granulomas. The lungs are clear. There is no demonstrated pleural abnormality. Normal size heart. Normal mediastinum and carola. Normal visualized pulmonary arteries. There is atherosclerotic tortuosity of the aortic arch and descending thoracic aorta. There are mild degenerative changes of the visualized thoracic spine. Normal visualized ribs, clavicles, and shoulders. There is no demonstrated abnormality of the visualized soft tissue structures of the upper abdomen. RAD/Chest PA and Lateral IMPRESSION: No acute abnormality is seen. Electronically Signed: Pepe Hamlin, at 12:46 EDT , Service support ,
[2020-04-21 12:19] LABS: Absolute Lymphocyte Count 0.51 X10^3/uL (0.83-4.51); Absolute Neutrophil Count 3.8 X10^3/uL (2.0-7.7); Basophil# 0.02 X10^3/uL; Basophil% 0.4 % (0-1); Differential Indicated SCAN CRITERIA MET; Eosinophil# 0.04 X10^3/uL; Eosinophils% 0.8 % (0-5); Hematocrit 39.9 % (40-54); Hemoglobin 12.9 g/dL (13.0-16.5); Lymphocyte # 0.51 X10^3/ul (4.0); Lymphocyte % 10.3 % (19-41); Mean Corp Hgb Conc 32.3 g/dL (32-36); Mean Corpuscular Hgb 26.1 pg (27.0-32.0); Mean Corpuscular Volume 80.8 fL (80-94); Mean Platelet Vol. 9.1 fl (6.2-12.0); Monocyte# 0.58 X10^3/uL; Monocyte% 11.7 % (0-10); NRBC Flagged by Analyzer 0 % (0-5); Neutrophil # 3.77 X10^3/uL (2.7-7.7); Neutrophil % 76.4 % (47-70); POSITIVE DIFFERENTIAL YES; Platelet Count 112 K/mm3 (150-450); RBC Distribution Width SD 43.4 fl (35.1-43.9); Red Blood Count 4.94 M/mm3 (4.6-6.2); White Blood Count 4.9 K/mm3 (4.4-11.0)
[2020-04-21 12:50] LABS: Albumin, Serum 3.3 g/dL (3.2-5.0); BUN 32 mg/dL (7-18); BUN/Creat Ratio 13.2 RATIO (10-20); Calcium,Total 8.8 mg/dL (8.5-10.1); Chloride 103 mmol/L (98-107); Creatinine, Serum 2.42 mg/dL (0.70-1.30); EST Glomerular Filtration Rate 29 mL/min (>60); Est Glom Filt Rate - Afr Amer 35 mL/min (>60); Glucose 201 mg/dL (74-106); Phosphorus 2.9 mg/dL (2.5-4.9); Potassium 3.9 mmol/L (3.5-5.1); Sodium Level 140 mmol/L (136-145); Thyroid Stim Hormone (TSH) 0.81 uIU/mL (0.358-3.74)
[2020-04-21 12:52] LABS: Vitamin D,25 Hydroxy 11.5 ng/mL
== END ==
LOC: LAB.FUTURE 13:14 → LAB 04-22 07:21
PROVIDERS: PCP Family Medicine Geriatric Medicine; Referring Provider Family Medicine Geriatric Medicine; Visit Provider Family Medicine Geriatric Medicine
DX: E11.22 Type 2 diabetes mellitus with diabetic chronic kidney disease (principal); N18.3 Chronic kidney disease, stage 3 (moderate); E86.0 Dehydration
CPT/HCPCS: 36415; 71046; 80069; 82306; 83970; 84443; 85025; 87086; 87633

== ENCOUNTER → 2020-04-22 10:15 | Outpatient (CLI) | payer OTHER, SELFPAY ==
[2020-04-22 12:22] LABS: Anion Gap 8 (5-15); BUN 38 mg/dL (7-18); BUN/Creat Ratio 17.5 RATIO (10-20); Calcium,Total 8.5 mg/dL (8.5-10.1); Chloride 101 mmol/L (98-107); Creatinine, Serum 2.17 mg/dL (0.70-1.30); EST Glomerular Filtration Rate 33 mL/min (>60); Est Glom Filt Rate - Afr Amer 40 mL/min (>60); Glucose 242 mg/dL (74-106); Potassium 3.3 mmol/L (3.5-5.1); Sodium Level 136 mmol/L (136-145)
== END ==
PROVIDERS: PCP Family Medicine Geriatric Medicine; Referring Provider Family Medicine Geriatric Medicine; Visit Provider Family Medicine Geriatric Medicine
DX: R06.89 Other abnormalities of breathing (principal)
CPT/HCPCS: 36415; 80048; 87635; 94799; U0003

== ENCOUNTER → 2020-05-06 13:09 | Outpatient (CLI) | payer OTHER, SELFPAY ==
[2020-05-06 16:24] LABS: Anion Gap 2 (5-15); BUN 30 mg/dL (7-18); BUN/Creat Ratio 14.6 RATIO (10-20); Calcium,Total 8.9 mg/dL (8.5-10.1); Chloride 109 mmol/L (98-107); Creatinine, Serum 2.05 mg/dL (0.70-1.30); EST Glomerular Filtration Rate 35 mL/min (>60); Est Glom Filt Rate - Afr Amer 42 mL/min (>60); Glucose 60 mg/dL (74-106); Potassium 4.4 mmol/L (3.5-5.1); Sodium Level 142 mmol/L (136-145)
== END ==
PROVIDERS: PCP Family Medicine Geriatric Medicine; Visit Provider Family Medicine Geriatric Medicine
DX: N18.3 Chronic kidney disease, stage 3 (moderate) (principal)
CPT/HCPCS: 36415; 80048

== ENCOUNTER → 2020-06-09 12:14 | Outpatient (CLI) | payer OTHER, SELFPAY ==
[2020-06-09 12:34] LABS: Absolute Lymphocyte Count 1.75 X10^3/uL (0.83-4.51); Absolute Neutrophil Count 6.1 X10^3/uL (2.0-7.7); Basophil# 0.03 X10^3/uL; Basophil% 0.3 % (0-1); Eosinophil# 0.13 X10^3/uL; Eosinophils% 1.5 % (0-5); Hematocrit 41.1 % (40-54); Hemoglobin 12.8 g/dL (13.0-16.5); Lymphocyte # 1.75 X10^3/ul (4.0); Lymphocyte % 19.8 % (19-41); Mean Corp Hgb Conc 31.1 g/dL (32-36); Mean Corpuscular Hgb 25.5 pg (27.0-32.0); Mean Corpuscular Volume 81.9 fL (80-94); Mean Platelet Vol. 9.2 fl (6.2-12.0); Monocyte# 0.74 X10^3/uL; Monocyte% 8.4 % (0-10); NRBC Flagged by Analyzer 0 % (0-5); Neutrophil # 6.14 X10^3/uL (2.7-7.7); Neutrophil % 69.5 % (47-70); Platelet Count 150 K/mm3 (150-450); RBC Distribution Width SD 44.4 fl (35.1-43.9); Red Blood Count 5.02 M/mm3 (4.6-6.2); White Blood Count 8.8 K/mm3 (4.4-11.0)
[2020-06-09 13:00] LABS: ALB/GLOB Ratio 0.8 RATIO (0.9-2.4); AST(SGOT) 23 U/L (15-37); Alanine Aminotransfer ALT/SGPT 29 U/L (16-61); Albumin, Serum 3.2 g/dL (3.2-5.0); Alkaline Phosphatase 70 U/L (45-117); Anion Gap 3 (5-15); BUN 34 mg/dL (7-18); BUN/Creat Ratio 17.5 RATIO (10-20); Calcium,Total 8.8 mg/dL (8.5-10.1); Chloride 108 mmol/L (98-107); Creatinine, Serum 1.94 mg/dL (0.70-1.30); EST Glomerular Filtration Rate 37 mL/min (>60); Est Glom Filt Rate - Afr Amer 45 mL/min (>60); Globulin 3.8 g/dL (2.2-4.2); Glucose 119 mg/dL (74-106); Potassium 4.3 mmol/L (3.5-5.1); Sodium Level 140 mmol/L (136-145); Thyroid Stim Hormone (TSH) 1.92 uIU/mL (0.358-3.74)
== END ==
PROVIDERS: PCP Family Medicine Geriatric Medicine; Visit Provider Family Medicine Geriatric Medicine
DX: R53.83 Other fatigue (principal)
CPT/HCPCS: 36415; 80053; 84443; 85025

== ENCOUNTER → 2020-08-11 08:19 | Outpatient (CLI) | payer OTHER, SELFPAY ==
--- NOTE | 2020-08-11 13:51 | NEURO ---
NCS and/or EMG Patient Report Ordering Doctor: Urbano Aranda Chi DATE OF SERVICE: 08/11/20 Adam Morris presents for electrodiagnostic testing of the upper limbs. He reports progressively worsening pain and numbness in both hands. Electrodiagnostic findings: Median motor nerve demonstrates prolonged distal latency with reduced amplitude and conduction velocity on the left side. Right median motor nerve demonstrates prolonged distal latency with normal amplitude and reduced conduction velocity. Normal ulnar motor responses noted bilaterally. Prolonged median and ulnar F waves. Absent median sensory latency at the wrist bilaterally. Prolonged median palmar latencies are noted. Needle EMG, all muscles tested in the upper limb showed no evidence of denervation with normal motor unit action potentials. Electrodiagnostic impression: This is an abnormal study in the upper limbs. 1. Electrodiagnostic findings demonstrate bilateral median mononeuropathy. This is consistent with an advanced bilateral carpal tunnel syndrome. If there are any further questions, please do not hesitate to contact me
== END ==
LOC: PSN 08:21
PROVIDERS: PCP Family Medicine Geriatric Medicine; Referring Provider Family Medicine Geriatric Medicine; Visit Provider Family Medicine Geriatric Medicine
DX: R20.9 Unspecified disturbances of skin sensation (principal)
CPT/HCPCS: 95886; 95913

== ENCOUNTER → 2020-08-16 14:09 | Outpatient (CLI) | payer OTHER, SELFPAY ==
[2020-08-16 14:50] LABS: Hematocrit 43.1 % (40-54); Hemoglobin 13.8 g/dL (13.0-16.5); Mean Corpuscular Hgb 26.1 pg (27.0-32.0); Mean Corpuscular Volume 81.5 fL (80-94); Mean Platelet Vol. 10.1 fl (6.2-12.0); Platelet Count 159 K/mm3 (150-450); RBC Distribution Width CV 14.3 % (11.6-14.6); RBC Distribution Width SD 41.6 fl (35.1-43.9); Red Blood Count 5.29 M/mm3 (4.6-6.2); White Blood Count 9.2 K/mm3 (4.4-11.0)
[2020-08-16 15:29] LABS: Anion Gap 4 (5-15); BUN 39 mg/dL (7-18); BUN/Creat Ratio 17.1 RATIO (10-20); Calcium,Total 8.8 mg/dL (8.5-10.1); Chloride 106 mmol/L (98-107); Creatinine, Serum 2.28 mg/dL (0.70-1.30); EST Glomerular Filtration Rate 31 mL/min (>60); Est Glom Filt Rate - Afr Amer 37 mL/min (>60); Glucose 210 mg/dL (74-106); Potassium 4.3 mmol/L (3.5-5.1); Sodium Level 140 mmol/L (136-145)
== END ==
PROVIDERS: PCP Family Medicine Geriatric Medicine; Referring Provider Specialist; Visit Provider Specialist
DX: Z01.818 Encounter for other preprocedural examination (principal)
CPT/HCPCS: 36415; 80048; 85027

== ENCOUNTER → 2020-08-31 13:41 | Outpatient (CLI) | payer OTHER, SELFPAY ==
[2020-08-31 16:21] LABS: M R Staph aureus DNA By PCR Negative (Negative); Probe Check PASS; Staph aureus DNA By PCR NEGATIVE (Negative)
== END ==
PROVIDERS: PCP Family Medicine Geriatric Medicine; Visit Provider Family Medicine Geriatric Medicine
DX: I10 Essential (primary) hypertension (principal); B95.62 Methicillin resistant Staphylococcus aureus infection as the cause of diseases classified elsewhere
CPT/HCPCS: 87070; 87205; 87640

== ENCOUNTER → 2020-09-15 14:02 | Outpatient (CLI) | payer OTHER, SELFPAY ==
[2020-09-15 17:20] LABS: Absolute Lymphocyte Count 1.94 X10^3/uL (0.83-4.51); Absolute Neutrophil Count 6.6 X10^3/uL (2.0-7.7); Basophil# 0.04 X10^3/uL; Basophil% 0.4 % (0-1); Eosinophil# 0.12 X10^3/uL; Eosinophils% 1.3 % (0-5); Hemoglobin 13.6 g/dL (13.0-16.5); Lymphocyte # 1.94 X10^3/ul (4.0); Lymphocyte % 20.5 % (19-41); Mean Corp Hgb Conc 31.6 g/dL (32-36); Mean Corpuscular Hgb 25.3 pg (27.0-32.0); Mean Corpuscular Volume 79.9 fL (80-94); Mean Platelet Vol. 10.2 fl (6.2-12.0); Monocyte# 0.74 X10^3/uL; Monocyte% 7.8 % (0-10); NRBC Flagged by Analyzer 0 % (0-5); Neutrophil # 6.58 X10^3/uL (2.7-7.7); Neutrophil % 69.6 % (47-70); Platelet Count 169 K/mm3 (150-450); RBC Distribution Width CV 14.3 % (11.6-14.6); RBC Distribution Width SD 41.1 fl (35.1-43.9); Red Blood Count 5.38 M/mm3 (4.6-6.2); White Blood Count 9.5 K/mm3 (4.4-11.0)
[2020-09-15 17:26] LABS: ALB/GLOB Ratio 0.8 RATIO (0.9-2.4); AST(SGOT) 29 U/L (15-37); Alanine Aminotransfer ALT/SGPT 36 U/L (16-61); Albumin, Serum 3.1 g/dL (3.2-5.0); Alkaline Phosphatase 92 U/L (45-117); Anion Gap 6 (5-15); BUN 32 mg/dL (7-18); BUN/Creat Ratio 14.8 RATIO (10-20); Calcium,Total 8.9 mg/dL (8.5-10.1); Chloride 106 mmol/L (98-107); Creatinine, Serum 2.16 mg/dL (0.70-1.30); EST Glomerular Filtration Rate 33 mL/min (>60); Est Glom Filt Rate - Afr Amer 40 mL/min (>60); Globulin 3.9 g/dL (2.2-4.2); Glucose 133 mg/dL (74-106); PSA,Total - Annual Screen 1.12 ng/mL (0.00-4.00); Potassium 4.2 mmol/L (3.5-5.1); Sodium Level 136 mmol/L (136-145); Thyroid Stim Hormone (TSH) 1.62 uIU/mL (0.358-3.74)
== END ==
PROVIDERS: PCP Family Medicine Geriatric Medicine; Visit Provider Family Medicine Geriatric Medicine
DX: E11.9 Type 2 diabetes mellitus without complications (principal); F52.8 Other sexual dysfunction not due to a substance or known physiological condition; Z12.5 Encounter for screening for malignant neoplasm of prostate
CPT/HCPCS: 36415; 80053; 84153; 84403; 84443; 85025; G0103

== ENCOUNTER 2020-11-29 19:26 | Emergency (ER) | payer OTHER, SELFPAY ==
[2020-11-29 19:27] VITALS: BP 196/97; PULSE 55; RESP 18; TEMP 35.9; O2SAT 96; BMI 43.2
--- NOTE | 2020-11-29 20:03 | EKG12_ITS ---
Test Reason : SOB Blood Pressure : / mmHG Vent. Rate : 062 BPM Atrial Rate : 062 BPM P-R Int : 162 ms QRS Dur : 094 ms QT Int : 484 ms P-R-T Axes : 025 011 101 degrees QTc Int : 491 ms Normal sinus rhythm Abnormal QRS-T angle, consider primary T wave abnormality Prolonged QT Abnormal ECG Confirmed by GORDON CRAWFORD, PATRICIO ([id number]), features editor HILDA BERUMEN ([id number]) on 12/02/2020 12:34:07 PM Referred By: Confirmed By:MARYCARMEN LEYVA MD
--- NOTE | 2020-11-29 20:03 | ED.VIS.GEN ---
History of Present Illness Chief Complaint: Shortness of Breath Informant: Patient Narrative: 65-year-old male with a history of hypertension presents for the evaluation of hypertension and chest pain. He tells me that this morning he felt quite his normal self. Had a slight pressure in his chest (0900). He took his metoprolol at 2:00 he took his lisinopril and states the pressure seemed to go little bit worse which did not concern him that much because he states he always feels a little bit different after he takes his lisinopril. This evening however the pressure was still present his took the blood pressure and it was reading greater than 200/100 and he came to the emergency room. Patient states that he has a history of automatic cuffs being inaccurate with him. Nursing took a manual pressure which is 184/102. Patient has no known coronary artery disease. Patient denies any headache, paresthesias, difficulty speaking or vision changes. Past Medical History - Allergies and Home Meds Allergies/Adverse Reactions: Allergies No Known Allergies Allergy (Verified 11/29/20 19:30) Primary Care Physician: Urbano Aranda Chi, MD [Primary Care Provider] - Past Medical History: - - Beatties hypertension Surgical History: noncontributory, - - multiple hip and knee procedures, tonsillectomy Lives: Spouse/ Significant Other Smoking Status: Former smoker Drugs: None Review of Systems General: Denies: Chills, Fever, Sweats Eyes: Denies: Visual changes - bilaterally, Diplopia ENT: Denies: Rhinorrhea, Sore throat Cardiovascular: Reports: Chest pain. Denies: Palpitations Respiratory: Denies: Dyspnea, Cough, Dyspnea on exertion Gastrointestinal: Denies: Abdominal pain, Nausea, Vomiting, Diarrhea, Melena, Hematochezia Genitourinary: Denies: Dysuria, Hematuria, Frequency Musculoskeletal: Denies: Back pain, Extremity Pain Skin: Denies: Rash, Wounds Neurological: Denies: Headache, Weakness, Numbness Physical Exam Vital Signs/Narrative: Vital Signs Temp Pulse Resp BP Pulse Ox 11/29/20 19:27 96.6 F L 55 L 18 196/97 H 96 Inital Vital Signs reviewed: Yes General: Well nourished, Well developed, No Acute Distress Head: Normocephalic, Atraumatic Eyes: Perrl, EOMI ENT: Moist mucous membranes, No rhinorrhea Neck: Supple, Nontender Cardiovascular: Regular rate, Regular rhythm, No murmurs Respiratory: No distress, CTA bilaterally, Chest nontender Abdomen: Soft, Nontender, Nondistended, Normal bowel sounds Back: Nontender, Normal Inspection Extremities: Nontender, No edema Skin: Normal color, No rash Neurological: Alert, Oriented x3, Cranial nerves II-XII grossly intact, Normal Strength, Normal Sensation Psychological: Normal affect, Normal Mood Diagnostic/Tx/Re-eval Clinical Impression(s) from Imaging Studies Chest X-Ray 11/29/20 20:10 IMPRESSION: No acute radiographic abnormalities. Electronically Signed: Zbigniew Coats MD at 20:30 EDT Tel , Service support , Laboratory Last Values WBC 8.3 K/mm3 (4.4-11.0) 11/29/20 20:31 RBC 5.26 M/mm3 (4.6-6.2) 11/29/20 20:31 Hgb 13.8 g/dL (13.0-16.5) 11/29/20 20:31 Hct 42.5 % (40-54) 11/29/20 20:31 MCV 80.8 fL (80-94) 11/29/20 20:31 MCH 26.2 pg (27.0-32.0) L 11/29/20 20:31 MCHC 32.5 g/dL (32-36) 11/29/20 20:31 RDW Std Deviation 41.0 fl (35.1-43.9) 11/29/20 20:31 RDW Coeff of Maxim 14.2 % (11.6-14.6) 11/29/20 20:31 Plt Count 166 K/mm3 (150-450) 11/29/20 20:31 MPV 9.8 fl (6.2-12.0) 11/29/20 20:31 Immature Gran % (Auto) 0.500 % (0.0-0.9) 11/29/20 20:31 Neut % (Auto) 66.0 % (47-70) 11/29/20 20:31 Lymph % (Auto) 22.9 % (19-41) 11/29/20 20:31 [place] % (Auto) 8.5 % (0-10) 11/29/20 20:31 Eos % (Auto) 1.7 % (0-5) 11/29/20 20: Baso % (Auto) 0.4 % (0-1) 11/29/20 20:31 Absolute Neuts (auto) 5.5 X10^3/uL (2.0-7.7) 11/29/20 20: Absolute Lymphs (auto) 1.89 X10^3/uL (0.83-4.51) 11/29/20 20:31 Nucleated RBC % 0 % (0-5) 11/29/20 20:31 Sodium 138 mmol/L (136-145) 11/29/20 20: Potassium 3.7 mmol/L (3.5-5.1) 11/29/20 20: Chloride 103 mmol/L (98-107) 11/29/20 20: Carbon Dioxide 29.0 mmol/L (21.0-32.0) 11/29/20 20:31 Anion Gap 6 (5-15) 11/29/20 20:31 BUN 38 mg/dL (7-18) H 11/29/20 20:31 Creatinine 2.09 mg/dL (0.70-1.30) H 11/29/20 20:31 Estim Creat Clear Calc 32.22 ml/min 11/29/20 20:31 Est GFR (MDRD) Af Amer 41 mL/min (>60) L 11/29/20 20: Est GFR (MDRD) Non-Af 34 mL/min (>60) L 11/29/20 20:31 BUN/Creatinine Ratio 18.2 RATIO (10-20) 11/29/20 20: Glucose 188 mg/dL (74-106) H 11/29/20 20:31 Calcium 8.4 mg/dL (8.5-10.1) L 11/29/20 20:31 Troponin I 0.018 ng/mL (<0.045) 11/29/20 20:31 - EKG Initial EKG Interpretation: Sinus Rhythm - Normal sinus rhythm at a rate of 62 - Medical Decision Making Patient was observed on the monitors had no events. His labs are essentially negative. Patient received a dose of metoprolol and hydralazine his blood pressures come down. He does not have any chest pressure. 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 He slept longer than normal and missed 2 out of his 3 blood pressure doses. These could explain why he is hypertensive today. I think the patient safe for discharge home and recommend he continue his blood pressure medications. I will write for him to have night off work. If he continues to be hypertensive he should call his doctor return if worsening or concerns ED Disposition - Plan for ED Patient: Disposition: Home or Assisted Living Diagnosis: Chest pain, Hypertensive urgency Instructions: ED High Blood Pressure ... Referrals: Urbano Aranda Chi, MD [Primary Care Provider] - 1 Week
--- NOTE | 2020-11-29 20:10 | RAD_ITS ---
INDICATION: chest pain EXAMINATION/TECHNIQUE: X-RAY - XR Chest 1 View COMPARISON: 04/21/2020. FINDINGS: The lungs are clear. The cardiomediastinal silhouette is unremarkable. No pleural effusion or pneumothorax. No acute osseous abnormalities. RAD/Chest 1 View (Portable) IMPRESSION: No acute radiographic abnormalities. Electronically Signed: Zbigniew oCats MD at 20:30 EDT Tel , Service support ,
[2020-11-29 20:32] VITALS: PULSE 62; RESP 29; O2SAT 96
[2020-11-29 20:41] VITALS: O2SAT 95
[2020-11-29 20:54] LABS: Absolute Lymphocyte Count 1.89 X10^3/uL (0.83-4.51); Absolute Neutrophil Count 5.5 X10^3/uL (2.0-7.7); Basophil# 0.03 X10^3/uL; Basophil% 0.4 % (0-1); Eosinophil# 0.14 X10^3/uL; Eosinophils% 1.7 % (0-5); Hematocrit 42.5 % (40-54); Hemoglobin 13.8 g/dL (13.0-16.5); Lymphocyte # 1.89 X10^3/ul (4.0); Lymphocyte % 22.9 % (19-41); Mean Corp Hgb Conc 32.5 g/dL (32-36); Mean Corpuscular Hgb 26.2 pg (27.0-32.0); Mean Corpuscular Volume 80.8 fL (80-94); Mean Platelet Vol. 9.8 fl (6.2-12.0); Monocyte% 8.5 % (0-10); NRBC Flagged by Analyzer 0 % (0-5); Neutrophil # 5.47 X10^3/uL (2.7-7.7); Platelet Count 166 K/mm3 (150-450); RBC Distribution Width CV 14.2 % (11.6-14.6); Red Blood Count 5.26 M/mm3 (4.6-6.2); White Blood Count 8.3 K/mm3 (4.4-11.0)
[2020-11-29 21:10] VITALS: BP 178/102
[2020-11-29 21:11] LABS: Anion Gap 6 (5-15); BUN 38 mg/dL (7-18); BUN/Creat Ratio 18.2 RATIO (10-20); Calcium,Total 8.4 mg/dL (8.5-10.1); Chloride 103 mmol/L (98-107); Creatinine, Serum 2.09 mg/dL (0.70-1.30); EST Glomerular Filtration Rate 34 mL/min (>60); Est Glom Filt Rate - Afr Amer 41 mL/min (>60); Estimated Creatinine Clearance 32.22 ml/min; Glucose 188 mg/dL (74-106); Potassium 3.7 mmol/L (3.5-5.1); Sodium Level 138 mmol/L (136-145)
[2020-11-29] MEDS: Metoprolol Tartrate 50 MG Tablet PO (21:17)
[2020-11-29] MEDS: hydrALAZINE 20 MG/ML Vial 10 MG IV (21:17)
[2020-11-29 22:12] VITALS: BP 191/74; PULSE 62; RESP 18
== END 2020-11-29 22:18 | disposition home or self-care (01) ==
PROVIDERS: Emergency Provider Emergency Medicine; PCP Family Medicine Geriatric Medicine
DX: R07.9 Chest pain, unspecified (principal); I16.0 Hypertensive urgency; I10 Essential (primary) hypertension; Z87.891 Personal history of nicotine dependence
CPT/HCPCS: 71045; 80048; 84484; 85025; 93005; 96374; 99285

== ENCOUNTER → 2021-05-20 10:34 | Outpatient (CLI) | payer MEDICARE, SELFPAY ==
[2021-05-20 11:15] LABS: Absolute Lymphocyte Count 1.52 X10^3/uL (0.83-4.51); Absolute Neutrophil Count 6.6 X10^3/uL (2.0-7.7); Basophil# 0.03 X10^3/uL; Basophil% 0.3 % (0-1); Eosinophil# 0.15 X10^3/uL; Eosinophils% 1.7 % (0-5); Hematocrit 42.3 % (40-54); Hemoglobin 13.3 g/dL (13.0-16.5); Lymphocyte # 1.52 X10^3/ul (0.83-4.51); Lymphocyte % 16.8 % (19-41); Mean Corp Hgb Conc 31.4 g/dL (32-36); Mean Corpuscular Hgb 26.3 pg (27.0-32.0); Mean Corpuscular Volume 83.8 fL (80-94); Mean Platelet Vol. 9.8 fl (6.2-12.0); Monocyte# 0.72 X10^3/uL; Monocyte% 7.9 % (0-10); NRBC Flagged by Analyzer 0 % (0-5); Neutrophil # 6.59 X10^3/uL (2.7-7.7); Neutrophil % 72.7 % (47-70); Platelet Count 158 K/mm3 (150-450); RBC Distribution Width CV 14.6 % (11.6-14.6); RBC Distribution Width SD 43.7 fl (35.1-43.9); Red Blood Count 5.05 M/mm3 (4.6-6.2); White Blood Count 9.1 K/mm3 (4.4-11.0)
[2021-05-20 11:40] LABS: Anion Gap 6 (5-15); BUN 42 mg/dL (7-18); Calcium,Total 8.8 mg/dL (8.5-10.1); Chloride 106 mmol/L (98-107); Creatinine, Serum 2.62 mg/dL (0.70-1.30); EST Glomerular Filtration Rate 26 mL/min (>60); Est Glom Filt Rate - Afr Amer 32 mL/min (>60); Glucose 192 mg/dL (74-106); Potassium 4.3 mmol/L (3.5-5.1); Sodium Level 139 mmol/L (136-145)
== END ==
PROVIDERS: PCP Family Medicine Geriatric Medicine; Referring Provider Family Medicine Geriatric Medicine; Visit Provider Family Medicine Geriatric Medicine
DX: N17.9 Acute kidney failure, unspecified (principal); B95.62 Methicillin resistant Staphylococcus aureus infection as the cause of diseases classified elsewhere; R53.1 Weakness
CPT/HCPCS: 36415; 80048; 85025; 87070; 87205

== ENCOUNTER → 2021-07-12 11:27 | Outpatient (CLI) | payer MEDICARE, SELFPAY ==
[2021-07-12 12:15] LABS: Hemoglobin 13.6 g/dL (13.0-16.5); Mean Corp Hgb Conc 31.6 g/dL (32-36); Mean Corpuscular Hgb 26.3 pg (27.0-32.0); Mean Platelet Vol. 10.1 fl (6.2-12.0); Platelet Count 182 K/mm3 (150-450); RBC Distribution Width CV 14.3 % (11.6-14.6); RBC Distribution Width SD 43.1 fl (35.1-43.9); Red Blood Count 5.18 M/mm3 (4.6-6.2); White Blood Count 9.8 K/mm3 (4.4-11.0)
[2021-07-12 12:25] LABS: Albumin, Serum 3.2 g/dL (3.2-5.0); BUN 37 mg/dL (7-18); BUN/Creat Ratio 13.1 RATIO (10-20); Calcium,Total 8.8 mg/dL (8.5-10.1); Chloride 104 mmol/L (98-107); Creatinine, Serum 2.82 mg/dL (0.70-1.30); EST Glomerular Filtration Rate 24 mL/min (>60); Est Glom Filt Rate - Afr Amer 29 mL/min (>60); Glucose 191 mg/dL (74-106); Phosphorus 3.2 mg/dL (2.5-4.9); Potassium 3.9 mmol/L (3.5-5.1); Sodium Level 139 mmol/L (136-145)
[2021-07-12 12:33] LABS: Protein, Urine (Random) 742.2 mg/dL (<11.9); Protein:Creat Ratio 4340 mg/g CRE (0-200)
[2021-07-12 13:17] LABS: PTHIN 216.3 pg/mL (18.4-80.1)
== END ==
PROVIDERS: PCP Family Medicine Geriatric Medicine; Visit Provider Internal Medicine Nephrology
DX: E11.22 Type 2 diabetes mellitus with diabetic chronic kidney disease (principal); N18.4 Chronic kidney disease, stage 4 (severe)
CPT/HCPCS: 36415; 80069; 82570; 83970; 84156; 85027

== ENCOUNTER 2021-09-20 10:36 | Outpatient (CLI) | payer MEDICARE, SELFPAY ==
[2021-09-20 11:20] LABS: 24HR. UA Prot. Total Volume 2600 mL
[2021-09-20 11:27] LABS: Urine Protein (24 Hour) 347.5 mg/dL (<11.9)
[2021-09-20 11:28] LABS: Creat.Clear Total Volume 2600 mL; Creatinine Clearance 39 ml/min (100-200); Creatinine Serum Creat 2.7 mg/dL (0.8-1.3); EST Glomerular Filtration Rate 26 mL/min (>60); Est Glom Filt Rate - Afr Amer 31 mL/min (>60)
[2021-09-20 11:29] LABS: Albumin, Serum 3.1 g/dL (3.2-5.0); BUN 35 mg/dL (7-18); BUN/Creat Ratio 13.1 RATIO (10-20); Chloride 100 mmol/L (98-107); Creatinine, Serum 2.67 mg/dL (0.70-1.30); EST Glomerular Filtration Rate 26 mL/min (>60); Est Glom Filt Rate - Afr Amer 31 mL/min (>60); Glucose 195 mg/dL (74-106); Phosphorus 3.2 mg/dL (2.5-4.9); Potassium 3.9 mmol/L (3.5-5.1); Sodium Level 138 mmol/L (136-145)
== END 2021-09-20 23:59 | disposition short-term general hospital (02) ==
LOC: LABSPEC 10:37
PROVIDERS: PCP Family Medicine Geriatric Medicine; Visit Provider Internal Medicine Nephrology
DX: N18.4 Chronic kidney disease, stage 4 (severe) (principal)
CPT/HCPCS: 36415; 80069; 81050; 82575; 84156

== ENCOUNTER 2021-09-21 13:14 | Outpatient (CLI) | payer MEDICARE, SELFPAY ==
[2021-09-21 15:19] LABS: Absolute Lymphocyte Count 1.45 X10^3/uL (0.83-4.51); Absolute Neutrophil Count 6.9 X10^3/uL (2.0-7.7); Basophil# 0.03 X10^3/uL; Basophil% 0.3 % (0-1); Eosinophil# 0.12 X10^3/uL; Eosinophils% 1.3 % (0-5); Hematocrit 39.9 % (40-54); Hemoglobin 12.6 g/dL (13.0-16.5); Lymphocyte # 1.45 X10^3/ul (0.83-4.51); Lymphocyte % 15.8 % (19-41); Mean Corp Hgb Conc 31.6 g/dL (32-36); Mean Corpuscular Hgb 25.5 pg (27.0-32.0); Mean Corpuscular Volume 80.6 fL (80-94); Mean Platelet Vol. 10.1 fl (6.2-12.0); Monocyte# 0.66 X10^3/uL; Monocyte% 7.2 % (0-10); NRBC Flagged by Analyzer 0 % (0-5); Neutrophil # 6.86 X10^3/uL (2.7-7.7); Platelet Count 174 K/mm3 (150-450); RBC Distribution Width CV 13.9 % (11.6-14.6); RBC Distribution Width SD 40.7 fl (35.1-43.9); Red Blood Count 4.95 M/mm3 (4.6-6.2); White Blood Count 9.2 K/mm3 (4.4-11.0)
[2021-09-21 15:37] LABS: Vitamin D,25 Hydroxy 12.7 ng/mL
[2021-09-21 15:46] LABS: ALB/GLOB Ratio 0.9 RATIO (0.9-2.4); AST(SGOT) 22 U/L (15-37); Alanine Aminotransfer ALT/SGPT 31 U/L (16-61); Albumin, Serum 3.2 g/dL (3.2-5.0); Alkaline Phosphatase 89 U/L (45-117); Anion Gap 4 (5-15); BUN 38 mg/dL (7-18); BUN/Creat Ratio 14.6 RATIO (10-20); Chloride 105 mmol/L (98-107); Creatinine, Serum 2.61 mg/dL (0.70-1.30); EST Glomerular Filtration Rate 26 mL/min (>60); Est Glom Filt Rate - Afr Amer 32 mL/min (>60); Globulin 3.7 g/dL (2.2-4.2); Glucose 132 mg/dL (74-106); PSA,Total - Annual Screen 1.45 ng/mL (0.00-4.00); Potassium 4.1 mmol/L (3.5-5.1); Protein, Total 6.9 g/dL (6.4-8.2); Sodium Level 138 mmol/L (136-145); Thyroid Stim Hormone (TSH) 1.63 uIU/mL (0.358-3.74)
== END 2021-09-21 23:59 | disposition short-term general hospital (02) ==
LOC: POLAB3 13:15
PROVIDERS: PCP Family Medicine Geriatric Medicine; Visit Provider Family Medicine Geriatric Medicine
DX: E11.9 Type 2 diabetes mellitus without complications (principal); E55.9 Vitamin D deficiency, unspecified; F52.8 Other sexual dysfunction not due to a substance or known physiological condition; I10 Essential (primary) hypertension; Z12.5 Encounter for screening for malignant neoplasm of prostate
CPT/HCPCS: 36415; 80053; 82306; 84153; 84403; 84443; 85025; G0103

== ENCOUNTER 2021-10-13 08:31 | Outpatient (CLI) | payer MEDICARE, SELFPAY ==
--- NOTE | 2021-10-13 08:38 | ART_ITS ---
Reason For Study: PVD Procedure A bilateral lower extremity continuous wave Doppler with analog waveform analysis,segmental pressures,and ankle brachial indexes without exercise. Did not exercise pt due to high BP. Left Segmental Pressures Left brachial= 213mmHg. Left posterior tibial artery = 217mmHg. Left dorsalis pedis artery = 173mmHg. Left digit = 161 mmHg. The left posterior tibial artery waveforms are triphasic. The left dorsalis pedis waveforms are biphasic. Right Segmental Pressures Right brachial= 217mmHg. Right thigh = 185mmHg. Right calf = 144mmHg. Right posterior tibial artery = 164mmHg. Right dorsalis pedis artery = 148mmHg. Right digit = 117 mmHg. The right posterior tibial artery waveforms are biphasic. The right dorsalis pedis waveforms are monophasic. Indices The right ankle brachial index by the dorsalis pedis is .68. The right ankle brachial index by the posterior tibial artery is .76. The right digital-brachial index is .54. The left ankle brachial index by the posterior tibial artery is 1.0. The left ankle brachial index by the dorsalis pedis is .8. The left digital-brachial index is .74. VL/Lower Ext Art Exam w/o Exercis Interpretation Summary Biphasic and monophasic Doppler waveforms are noted at ankle level on the right . Triphasic and biphasic Doppler waveforms are noted at ankle level on the left. Pulse-volume r ecordings appear diminished at ankle and digital level on the right. The resting right ankle-bra chial index is moderately diminished. The resting left ankle-brachial index is normal. The rig ht digital-brachial index is mildly diminished. The left digital-brachial index is normal. 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 There is no evidence of significant art erial occlusive disease in the left lower extremity. An exercise component of this study was not performed due to the patient's zena rely elevated blood pressure. The patient was referred to his primary care physician for management . Ordering Physician: Siddharth Smith Performed By: Jose Roblero RVT
== END 2021-10-13 23:59 | disposition short-term general hospital (02) ==
LOC: CVS 08:35
PROVIDERS: PCP Family Medicine Geriatric Medicine; Referring Provider Podiatrist; Visit Provider Podiatrist
DX: I73.9 Peripheral vascular disease, unspecified (principal)
CPT/HCPCS: 93923

== ENCOUNTER 2021-10-19 16:01 | Outpatient (CLI) | payer MEDICARE, SELFPAY ==
[2021-10-19 17:51] LABS: Anion Gap 6 (5-15); BUN 38 mg/dL (7-18); BUN/Creat Ratio 13.5 RATIO (10-20); CRP < 2.90 mg/L (0.0-3.0); Calcium,Total 8.6 mg/dL (8.5-10.1); Chloride 106 mmol/L (98-107); Creatinine, Serum 2.82 mg/dL (0.70-1.30); EST Glomerular Filtration Rate 24 mL/min (>60); Est Glom Filt Rate - Afr Amer 29 mL/min (>60); Glucose 102 mg/dL (74-106); Potassium 5.1 mmol/L (3.5-5.1); Sodium Level 139 mmol/L (136-145)
[2021-10-19 18:04] LABS: Absolute Lymphocyte Count 1.76 X10^3/uL (0.83-4.51); Absolute Neutrophil Count 6.2 X10^3/uL (2.0-7.7); Basophil# 0.03 X10^3/uL; Basophil% 0.3 % (0-1); Eosinophil# 0.16 X10^3/uL; Eosinophils% 1.8 % (0-5); Hematocrit 39.7 % (40-54); Hemoglobin 12.9 g/dL (13.0-16.5); Lymphocyte # 1.76 X10^3/ul (0.83-4.51); Lymphocyte % 19.7 % (19-41); Mean Corp Hgb Conc 32.5 g/dL (32-36); Mean Corpuscular Hgb 26.3 pg (27.0-32.0); Mean Corpuscular Volume 80.9 fL (80-94); Mean Platelet Vol. 10.2 fl (6.2-12.0); Monocyte# 0.81 X10^3/uL; Monocyte% 9.1 % (0-10); NRBC Flagged by Analyzer 0 % (0-5); Neutrophil # 6.15 X10^3/uL (2.7-7.7); Neutrophil % 68.7 % (47-70); Platelet Count 159 K/mm3 (150-450); RBC Distribution Width CV 14.2 % (11.6-14.6); RBC Distribution Width SD 41.3 fl (35.1-43.9); Red Blood Count 4.91 M/mm3 (4.6-6.2)
[2021-10-19 18:13] LABS: Erythrocyte Sedimentation Rate 16 mm/hr (0-20)
== END 2021-10-19 23:59 | disposition home or self-care (01) ==
LOC: POLAB3 16:02
PROVIDERS: PCP Family Medicine Geriatric Medicine; Visit Provider Family Medicine Geriatric Medicine
DX: N39.0 Urinary tract infection, site not specified (principal); R51.9 Headache, unspecified
CPT/HCPCS: 36415; 80048; 85025; 85652; 86140; 87086

== ENCOUNTER 2021-11-28 11:45 | Outpatient (CLI) | payer MEDICARE, SELFPAY ==
[2021-11-28 12:14] LABS: Hematocrit 38.3 % (40-54); Hemoglobin 12.8 g/dL (13.0-16.5); Mean Corp Hgb Conc 33.4 g/dL (32-36); Mean Corpuscular Hgb 26.4 pg (27.0-32.0); Mean Platelet Vol. 9.9 fl (6.2-12.0); Platelet Count 145 K/mm3 (150-450); RBC Distribution Width CV 14.5 % (11.6-14.6); RBC Distribution Width SD 41.2 fl (35.1-43.9); Red Blood Count 4.85 M/mm3 (4.6-6.2); White Blood Count 8.6 K/mm3 (4.4-11.0)
[2021-11-28 12:44] LABS: Albumin, Serum 3.4 g/dL (3.2-5.0); BUN 40 mg/dL (7-18); BUN/Creat Ratio 13.2 RATIO (10-20); Chloride 107 mmol/L (98-107); Creatinine, Serum 3.02 mg/dL (0.70-1.30); EST Glomerular Filtration Rate 22 mL/min (>60); Est Glom Filt Rate - Afr Amer 27 mL/min (>60); Glucose 196 mg/dL (74-106); Phosphorus 3.5 mg/dL (2.5-4.9); Potassium 4.1 mmol/L (3.5-5.1); Sodium Level 139 mmol/L (136-145)
[2021-11-28 12:47] LABS: PTHIN 386.6 pg/mL (18.4-80.1)
[2021-11-28 12:50] LABS: Vitamin D,25 Hydroxy 13.6 ng/mL
== END 2021-11-28 23:59 | disposition home or self-care (01) ==
LOC: POLAB3 11:45
PROVIDERS: PCP Family Medicine Geriatric Medicine; Visit Provider Internal Medicine Nephrology
DX: N18.4 Chronic kidney disease, stage 4 (severe) (principal); N25.81 Secondary hyperparathyroidism of renal origin
CPT/HCPCS: 36415; 80069; 82306; 83970; 85027

== ENCOUNTER 2021-12-15 07:28 | Outpatient (CLI) | payer MEDICARE, SELFPAY ==
--- NOTE | 2021-12-15 07:31 | VDUE_ITS ---
Reason For Study: Pre op testing Right Arm Left Arm Right Cephalic Vein at the wrist measures Left Cephalic Vein at the wrist measures 0.25 x 0.27 cm. 0.28 x 0.29 cm. Right Cephalic Vein in the forearm measures Left Cephalic Vein in the forearm measures 0.15 x 0.16 cm. 0.25 x 0.26 cm. Right Cephalic Vein below antecub measures Left Cephalic Vein below antecub measures 0.16 x 0.17 cm. 0.25 x 0.27 cm. Right Cephalic Vein above antecub measures Left Cephalic Vein above antecub measures 0.32 x 0.31 cm. 0.31 x 0.32 cm. Right Cephalic Vein mid bicep measures 0.32 Left Cephalic Vein at mid bicep measures x 0.31 cm. 0.29 x 0.29 cm. Right Cephalic Vein at the shoulder measures Left Cephalic Vein at the shoulder measures 0.31 x 0.30 cm. 0.28 x 0.28 cm. Right Basilic Vein at the origin measures Basilic vein at origin measures 0.32 x 0.35 0.34 x 0.36 cm. cm. Right Basilic Vein mid bicep measures 0.38 x Basilic vein at bicep measures 0.34 x 0.36 0.42 cm. cm. Right Basilic Vein above antecub measures Basilic vein above antecub measures 0.33 x 0.35 x 0.36 cm. 0.34 cm. Right Brachial artery measures 0.33 x 0.32 Left Brachial artery measures 0.37 x 0.39 cm cm with a velocity of 154.4 cm/sec. with a velocity of 133.6 cm/sec. Right Radial artery measures 0.16 x 0.16 cm Left Radial artery measures 0.16 x 0.18 cm with a velocity of 79.2 cm/sec. with a velocity of 105 cm/sec. VL/Saphenous Vein Mapping, Bilat Interpretation Summary Patent and compressible bilateral upper extremity cephalic and basilic veins wi th dimensions as noted. Borderline small bilateral radial arteries although with normal flow Normal diameter and flow bilateral brachial arteries Ordering Physician: Sam Vela Referring Physician: Urbano Aranda Chi Performed By: Lanie Miles RVT ?
== END 2021-12-15 23:59 | disposition home or self-care (01) ==
LOC: CVS 07:30
PROVIDERS: PCP Family Medicine Geriatric Medicine; Referring Provider Surgery; Visit Provider Surgery
DX: Z01.818 Encounter for other preprocedural examination (principal); N18.4 Chronic kidney disease, stage 4 (severe)
CPT/HCPCS: 93970; 93985

== ENCOUNTER → 2022-01-02 | Outpatient (CLI) | payer MEDICARE, SELFPAY ==
[2022-01-02 17:19] LABS: Albumin, Serum 3.5 g/dL (3.2-5.0); BUN 41 mg/dL (7-18); BUN/Creat Ratio 12.5 RATIO (10-20); Calcium,Total 8.8 mg/dL (8.5-10.1); Chloride 104 mmol/L (98-107); Creatinine, Serum 3.29 mg/dL (0.70-1.30); EST Glomerular Filtration Rate 20 mL/min (>60); Est Glom Filt Rate - Afr Amer 24 mL/min (>60); Glucose 149 mg/dL (74-106); Phosphorus 3.1 mg/dL (2.5-4.9); Potassium 4.5 mmol/L (3.5-5.1); Sodium Level 137 mmol/L (136-145)
[2022-01-02 17:25] LABS: Vitamin D,25 Hydroxy 19.6 ng/mL
[2022-01-03 09:45] LABS: PTHIN 201.3 pg/mL (18.4-80.1)
== END | disposition home or self-care (01) ==
LOC: POLAB3 14:16
PROVIDERS: PCP Family Medicine Geriatric Medicine; Visit Provider Internal Medicine Nephrology
DX: N18.4 Chronic kidney disease, stage 4 (severe) (principal); N25.81 Secondary hyperparathyroidism of renal origin; E55.9 Vitamin D deficiency, unspecified
CPT/HCPCS: 36415; 80069; 82306; 83970

== ENCOUNTER 2022-01-23 08:04 | Day surgery (SDC) | payer MEDICARE, SELFPAY ==
--- NOTE | 2022-01-17 13:38 | EKG12_ITS ---
Test Reason : PRE-OP Blood Pressure : / mmHG Vent. Rate : 051 BPM Atrial Rate : 051 BPM P-R Int : 162 ms QRS Dur : 098 ms QT Int : 528 ms P-R-T Axes : 083 -15 109 degrees QTc Int : 486 ms Sinus bradycardia Nonspecific ST and T wave abnormality Prolonged QT Poor R wave progression Abnormal ECG Confirmed by MELANIE CRAWFORD, SADI ([id number]), managing editor TRACI GALLOWAY ([id number]) on 01/18/2022 11:13:15 AM Referred By: Sam Vela Confirmed By:SADI NAVARRO MD
[2022-01-17 14:42] LABS: Hematocrit 38.9 % (40-54); Hemoglobin 13.2 g/dL (13.0-16.5); Mean Corp Hgb Conc 33.9 g/dL (32-36); Mean Corpuscular Hgb 27.5 pg (27.0-32.0); Mean Platelet Vol. 9.9 fl (6.2-12.0); Platelet Count 155 K/mm3 (150-450); RBC Distribution Width CV 14.1 % (11.6-14.6); RBC Distribution Width SD 40.8 fl (35.1-43.9)
[2022-01-17 15:16] LABS: Anion Gap 5 (5-15); BUN 49 mg/dL (7-18); BUN/Creat Ratio 14.6 RATIO (10-20); Calcium,Total 8.8 mg/dL (8.5-10.1); Chloride 103 mmol/L (98-107); Creatinine, Serum 3.36 mg/dL (0.70-1.30); EST Glomerular Filtration Rate 20 mL/min (>60); Est Glom Filt Rate - Afr Amer 24 mL/min (>60); Glucose 300 mg/dL (74-106); Potassium 3.9 mmol/L (3.5-5.1); Sodium Level 136 mmol/L (136-145)
[2022-01-23] VITALS (14 sets, daily range): BP systolic 120–159; BP diastolic 39–133; PULSE 52–85; RESP 16–22; TEMP 35.9–37.1; O2SAT 89–100; BMI 41.0
--- NOTE | 2022-01-23 09:26 | HP.PCM_ITS ---
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 Is patient in pain?: No Allergies No Known Allergies Allergy (Verified 12/21/21 13:02) Medications Apidra 40 units SQ TID 06/08/17 [History Confirmed 12/21/21] Lantus 70 units SQ DAILY 06/08/17 [History Confirmed 12/21/21] hydrochlorothiazide 12.5 mg PO DAILY 06/08/17 [History Confirmed 12/21/21] lisinopril [Zestril] 40 mg PO DAILY 06/08/17 [History Confirmed 12/21/21] metoprolol tartrate 250 mg PO BID 06/08/17 [History Confirmed 12/21/21] sildenafil [Viagra] 100 mg PO PRN PRN 06/08/17 [History Confirmed 12/21/21] Potassium Chloride 20 meq PO DAILY 11/29/20 [History Confirmed 12/21/21] atorvastatin 40 mg PO QHS 11/29/20 [History Confirmed 12/21/21] lidocaine 1 patch TOPICAL DAILY 11/29/20 [History Confirmed 12/21/21] PFSH Medical History (Updated 12/21/21 @ 13:00 by Diann Serrano) Chronic kidney disease (CKD) stage G4/A3, severely decreased glomerular filtration rate (GFR) between 15-29 mL/min/1.73 square meter and albuminuria creatinine ratio greater than 300 mg/g History of diabetes mellitus History of diabetic neuropathy History of ED History of edema History of hypertension History of lymphedema Surgical History (Updated 12/21/21 @ 13:01 by Diann Serrano) S/P tonsillectomy Status post hip surgery Status post knee surgery Family History (Updated 12/21/21 @ 13:01 by Diann Serrano) Father Diabetes Heart disease Hypertension Kidney disease CAD (coronary artery disease) Social History Smoking Status: Former smoker alcohol intake: never HPI HPI HPI: LUCIE PEREZ, is a 66 M who presents to the office today for surgical consultation regarding creation of arteriovenous hemodialysis fistula. The patient is referred by Dr. Mami Pollard and a written copy of my surgical consult recommendations will return to her. The patient is right arm dominant. He has been a long-term diabetic. Claims that his morning glucoses typically are about 200. He used to work in a [employer]. Not currently employed. Body weight is 260 pounds with a BMI of 41.9 December 15, 2021 Reason For Study: Pre op testing Right Arm Left Arm Right Cephalic Vein at the wrist measures Left Cephalic Vein at the wrist measures 0.25 x 0.27 cm. 0.28 x 0.29 cm. Right Cephalic Vein in the forearm measures Left Cephalic Vein in the forearm measures 0.15 x 0.16 cm. 0.25 x 0.26 cm. Right Cephalic Vein below antecub measures Left Cephalic Vein below antecub measures 0.16 x 0.17 cm. 0.25 x 0.27 cm. Right Cephalic Vein above antecub measures Left Cephalic Vein above antecub measures 0.32 x 0.31 cm. 0.31 x 0.32 cm. Right Cephalic Vein mid bicep measures 0.32 Left Cephalic Vein at mid bicep measures x 0.31 cm. 0.29 x 0.29 cm. Right Cephalic Vein at the shoulder measures Left Cephalic Vein at the shoulder measures 0.31 x 0.30 cm. 0.28 x 0.28 cm. Right Basilic Vein at the origin measures Basilic vein at origin measures 0.32 x 0.35 0.34 x 0.36 cm. cm. Right Basilic Vein mid bicep measures 0.38 x Basilic vein at bicep measures 0.34 x 0.36 0.42 cm. cm. Right Basilic Vein above antecub measures Basilic vein above antecub measures 0.33 x 0.35 x 0.36 cm. 0.34 cm. Right Brachial artery measures 0.33 x 0.32 Left Brachial artery measures 0.37 x 0.39 cm cm with a velocity of 154.4 cm/sec. with a velocity of 133.6 cm/sec. Right Radial artery measures 0.16 x 0.16 cm Left Radial artery measures 0.16 x 0.18 cm with a velocity of 79.2 cm/sec. with a velocity of 105 cm/sec. VL/Saphenous Vein Mapping, Bilat Interpretation Summary Patent and compressible bilateral upper extremity cephalic and basilic veins with dimensions as noted. Borderline small bilateral radial arteries although with normal flow Normal diameter and flow bilateral brachial arteries Ordering Physician: Sam Vela Referring Physician: Urbano Aranda Chi Performed By: Lanie Miles RVT ? 12/15/21 0904Date Sam Vela MD ROS General General: No weight change, appetite, fatigue, colon cancer, breast cancer or weakness HEENT HEENT: Yes swollen glands; No difficulty swallowing, eye injury, eye surgery or hoarseness Endo Endocrine: Yes diabetes mellitus; No thyroid disease, thyroid cancer, Hair loss, heat intolerance or cold intolerance Skin Skin: Yes rash; No changing moles Breast Breast: No left breast lump, right breast lump, nipple discharge, breast pain, abnormal mammogram, abnormal US or breast enlargement Musc Musculoskeletal: Yes arthritis and gout; No back problems, rheumatoid arthritis or joint pain Cardio Cardiovascular: Yes high blood pressure; No murmur, pacemaker, heart disease, atrial fibrillation, heart attack, heart stent, palpitations, shortness of breat with exertion or chest pain Psych Psychiatric: Yes depression; No anxiety or hearing voices Resp Respiratory: Yes shortness of breath, Yes sleep apnea, Yes cough, No COPD, No a sthma, No emphysema and No wheezing Gastro Gastrointestinal: No abdominal pain, No nausea or vomiting, Yes diarrhea, No constipation, No blood in stool, No acid reflux, No hemorrhoids, No ulcers, No g allbladder problem and No black,tarry stools Marbin Hematologic: No blood thinners, No blood disorders, No bleeding, No anemia and No blood clots Neuro Neurologic: No system reviewed and no additional complaints, except as documented, No as per HPI, No abnormal gait, No abnormal hearing, No abnormal movements, No abnormal speech, No behavioral changes, No burning sensations, No confusion, No convulsions, No disequilibrium, No dizziness, No localized weakness, No frequent falls, No headache(s), No lack of coordination, No loss of vision, No memory loss, Yes numbness, No other visual disturbances, No radicular pain, No restless legs, No sensory deficit, No syncope, Yes tingling, No tremor(s), No weakness and No other Exam Const General: cooperative, comfortable and no acute distress Nutritional Appearance: obese morbidly obese [facility] Head: normal to inspection Eyes General: appearance normal, both eyes and all related structures Chest Other: Increased AP diameter Resp Effort & Inspection: normal respiratory effort Auscultation: clear to auscultation bilaterally Cardio Rate: regular rate Rhythm: regular rhythm GI Other: Notably overweight. Not able to palpate any organs Neuro General: patient alert, patient awake and patient oriented x3 Extrem Other: Left upper extremity said 2-3+ radial pulse. Cephalic vein appears to be adequate in the forearm patent and compressible. I measure it to be 2 to 3 mm from the skin. Psych Appearance: grossly normal Assessment and Plan Assessment and Plan (1) Chronic kidney disease (CKD) stage G4/A3, severely decreased glomerular filtration rate (GFR) between 15-29 mL/min/1.73 square meter and albuminuria creatinine ratio greater than 300 mg/g: Status: Acute Orders: Orders: Saphenous Vein Mapping, Bilat 12/15/21 N18.4 Plan - Dr. Sam Vela MD: I recommended the patient a left forearm radiocephalic arteriovenous hemodialysis fistula creation and I have discussed in detail with him technique, benefit, risk and alternatives. No guarantees of success have been offered. He is aware that additional interventions may be required. He has had an opportunity to ask and have questions answered. We will schedule procedure at his discretion. I also suggested that he initiate a 81 mg aspirin daily in hopes of keeping the fistula patent. We will schedule procedure time at half of his discretion. I appreciate the opportunity of assisting with the surgical care Copy: Dr. Urbano Aranda and Dr. Mami Vela M.D., F.A.C.S. I have re-examined the patient. There are no clinical changes since date of exam. Sam Vela M.D., F.A.C.S.
[2022-01-23] MEDS: Bupivacaine Mpf 0.5% 30 ML VIAL (10:16)
[2022-01-23] MEDS: 0.9% Normal Saline 1,000 ML 15 ML IV (10:28)
[2022-01-23 10:36] LABS: Bedside Glucose 207 mg/dL (74-106)
--- NOTE | 2022-01-23 10:43 | EX.PCM.DISCH ---
Discharge Instructions Procedure Fistula Diet Discharge Diet: Renal Diet Activity Discharge Activity: May Not Drive (for 2-3 days or while taking narcotic pain medications.), May Shower and May Take a Tub Bath (in 5 days.) Lifting Restrictions: 5 pounds Keep extremity elevated above heart level: - (Keep arm elevated above the heart level for 3 days.) Dressing / Incision Call your doctor if your incision/area has: Continuous Slow Oozing, Sudden Increased Bleeding (apply pressure and call your doctor.), Increased Pain/ Swelling, Increased Redness and Foul Smelling Discharge Call your doctor if you observe: Fever of 101 or Higher Suture Line Care: Avoid Pulling/Pushing and Avoid Pinching/Bending Cleanse incision/area with: Keep Dressing Clean & Dry Additional Dressing/Incision Instructions:: Change or remove dressing in one day. May protect with a gauze bandaid. Follow Up Care Please Follow Up With: Sam Vela MD When: Call [phone] to make an appointment for suture removal and follow up in 1 week. Test Results: Test results from this visit will be discussed in further detail at your follow-up appointment, if applicable. Discharge Plan Admission Attending Provider: Sam Vela Primary Care Provider: Urbano Aranda Chi Discharge Orders/Prescriptions Prescriptions: No Action lisinopril [Zestril] 20 MG tablet 40 mg PO 1400 RF: 0 sildenafil [Viagra] 100 MG tablet 100 mg PO PRN PRN (Reason: ED) RF: 0 metoprolol tartrate 25 MG tablet 50 mg PO BID RF: 0 atorvastatin 40 MG tablet 40 mg PO QHS RF: 0 lidocaine 1 PATCH patch 1 patch TOPICAL PRN PRN (Reason: Pain) RF: 0 Potassium Chloride 20 MEQ Tab.Er.Prt 20 meq PO DAILY RF: 0 amlodipine 5 mg Tablet 5 mg PO 1200 RF: 0 citalopram [Celexa] 20 mg Tablet 20 mg PO DAILY RF: 0 Novolin R Regular U-100 Insuln 100 unit/mL Solution 40 unit SUBCUT BID RF: 0 ergocalciferol (vitamin D2) [Vitamin D2] 1,250 mcg (50,000 unit) Capsule 1,250 mcg PO QMONTH RF: 0 calcitriol 0.25 mcg Capsule 0.25 mcg PO DAILY RF: 0
--- NOTE | 2022-01-23 12:12 | PCM.OPRPT ---
Problems Associated Problem List Diagnoses (1) Chronic kidney disease (CKD) stage G4/A3, severely decreased glomerular filtration rate (GFR) between 15-29 mL/min/1.73 square meter and albuminuria creatinine ratio greater than 300 mg/g: Report of Operation Date of Procedure: 01/23/22 Pre-Operative Diagnosis: Stage IV chronic renal insufficiency Post-Operative Diagnosis: Same Surgery/Procedure Performed:: Left forearm radiocephalic arteriovenous hemodialysis fistula creation Description of Surgical Findings:: Timeout informed consent was obtained. 66-year-old gentleman was taken to the operating room placed supine on the table underwent monitored anesthesia care. Clean procedure. 1% lidocaine mixed 50-50 with 0.5% Marcaine was used as a local anesthetic. A total of 8 cc was used. Ultrasound mapping was performed. Local was instilled. An oblique incision was made along the radial aspect of the left wrist sharp and blunt dissection was used to identify the cephalic vein was dissected free side branches secured with hemoclips the radial artery was identified dissected free and mobilized for short distance. The patient received 10,000's of heparin based upon body weight. After adequate serpentine peripheral vascular clamps were placed on the radial artery and 11 blade was used to make an arteriotomy which was extended with Lopez scissors. The radial artery was noted to be quite thick-walled. The vein was ligated distally with a Hemoclip then spatulated and a end to side anastomosis was created with a running 7-0 Prolene. A couple repair sutures of 7-0 Prolene were required at the toe for complete hemostasis. There appeared to be a good flow within the fistula with pulse palpable and then Doppler signal was demonstrating good flow the hand was noted to be viable. Hemostasis was intact. The wound was closed with a deep layer of interrupted 3-0 Vicryl and then several interrupted 4 Monocryl subdermal stitches. Steri-Strips Telfa OpSite dressings applied. Sponge and instrument were reported to the surgeon be correct. There was absence of a 7-0 Prolene needle. Therefore an extremity study at the site of the incision was obtained demonstrating no residual foreign body. He was taken to the recovery area in satisfactory addition without apparent complication Specimen none. Drains none. Blood loss minimal. Sam Vela M.D., F.A.C.S. Surgeon: Sam Vela Type of Anesthesia: Local MAC Anesthesiologist: Lara Dobbins
[2022-01-23] MEDS: Heparin Injection (Vial) 5,000 UNIT/ML VIAL 5000 UNIT (12:15)
[2022-01-23] MEDS: Lidocaine 1% (50 ml mdv) 50 ML Vial (12:17)
--- NOTE | 2022-01-23 14:34 | SUR.PHASEII ---
PRESSURE WAS HELD ON THE SITE WITH 4X4 AND THEN DRESSING WAS CHANGED PER DR. LAMBERT REQUEST.
--- NOTE | 2022-01-23 17:12 | SUR.PHASEII ---
BLOOD GLUCOSE OBTAINED RESULT WAS 163. REPORTED TO DR. HAZEL.
--- NOTE | 2022-01-23 17:30 | SUR.PHASEII ---
HAND OFF CARE OF PT GIVEN TO MASTER DORSEY.
--- NOTE | 2022-01-23 18:15 | SUR.PHASEII ---
CALL PLACED TO DR. LAMBERT TO UPDATE HIM ON PT BLADDER SCAN OF 316, PLAN IS TO PUT A PUGH CATH IN PT, GIVE A DOSE OF 0.4MG OF FLOMAX AND SEND A PRESCIPTION OF FLOMAX 0.4MG 10 TABS TO [facility], PT IS TO TAKE OF PUGH ON SUNDAY AND IF HE CANT PEE GO TO DR. NORMAN OFFICE
--- NOTE | 2022-01-23 18:58 | SUR.PHASEII ---
FLOMAX 0.4MG [address] [facility] ON [address] IN [place]
[2022-01-23] MEDS: Tamsulosin HCl 0.4 MG Capsule PO (19:08)
[2022-01-23 19:15] LABS: Bedside Glucose 163 mg/dL (74-106)
== END 2022-01-23 19:25 | disposition home or self-care (01) ==
LOC: SDC 08:06 → AC 09:21
PROVIDERS: PCP Family Medicine Geriatric Medicine; Referring Provider Surgery; Visit Provider Surgery
PROC: (CPT 36821; principal; 2022-01-23 10:45)
DX: I12.9 Hypertensive chronic kidney disease with stage 1 through stage 4 chronic kidney disease, or unspecified chronic kidney disease (principal); E11.40 Type 2 diabetes mellitus with diabetic neuropathy, unspecified; E11.22 Type 2 diabetes mellitus with diabetic chronic kidney disease; N18.4 Chronic kidney disease, stage 4 (severe); Z87.891 Personal history of nicotine dependence; F32.A Depression, unspecified
CPT/HCPCS: 36821; 01844; 36415; 80048; 82962; 85027; 93005; J7030; A4216; J2405

== ENCOUNTER → 2022-01-26 | Outpatient (CLI) | payer MEDICARE, SELFPAY ==
--- NOTE | 2022-01-26 16:00 | RAD_ITS ---
STUDY: X-RAY CHEST REASON FOR EXAM: Male, 66 years old. COUGH TECHNIQUE: XR Chest 2 Views COMPARISON: 3 FINDINGS: There is no demonstrated pleural abnormality. Normal size heart. Normal mediastinum and carola. Normal visualized pulmonary arteries. There is atherosclerotic calcification of the aortic arch with tortuosity. There are diffuse degenerative changes of the visualized thoracic spine. There is degenerative osteoarthritis of the bilateral shoulders. There is no demonstrated abnormality of the visualized soft tissue structures of the upper abdomen. RAD/Chest PA and Lateral IMPRESSION: There are no acute findings. Electronically Signed: Wilmer Lozano MD at 16:28 EDT ,
== END | disposition home or self-care (01) ==
PROVIDERS: PCP Family Medicine Geriatric Medicine; Referring Provider Family Medicine Geriatric Medicine; Visit Provider Family Medicine Geriatric Medicine
DX: R05.9 Cough, unspecified (principal)
CPT/HCPCS: 71046

== ENCOUNTER → 2022-01-27 | Outpatient (CLI) | payer MEDICARE, SELFPAY | END | disposition home or self-care (01) | LOC: PSN 08:35 | PROVIDERS: PCP Family Medicine Geriatric Medicine; Visit Provider Family Medicine Geriatric Medicine | DX: R68.83 Chills (without fever) (principal); Z20.822 Contact with and (suspected) exposure to COVID-19 | CPT/HCPCS: 87635; 87804; 87807; C9803; U0003; U0005 ==

== ENCOUNTER → 2022-02-28 | Outpatient (CLI) | payer MEDICARE, SELFPAY ==
[2022-02-28 12:47] LABS: Hematocrit 37.7 % (40-54); Hemoglobin 12.2 g/dL (13.0-16.5); Mean Corp Hgb Conc 32.4 g/dL (32-36); Mean Corpuscular Hgb 26.8 pg (27.0-32.0); Mean Corpuscular Volume 82.9 fL (80-94); Platelet Count 142 K/mm3 (150-450); RBC Distribution Width CV 14.6 % (11.6-14.6); RBC Distribution Width SD 43.9 fl (35.1-43.9); Red Blood Count 4.55 M/mm3 (4.6-6.2); White Blood Count 8.7 K/mm3 (4.4-11.0)
[2022-02-28 12:53] LABS: Albumin, Serum 3.1 g/dL (3.2-5.0); BUN 40 mg/dL (7-18); BUN/Creat Ratio 11.6 RATIO (10-20); Calcium,Total 8.6 mg/dL (8.5-10.1); Chloride 105 mmol/L (98-107); Creatinine, Serum 3.46 mg/dL (0.70-1.30); EST Glomerular Filtration Rate 19 mL/min (>60); Est Glom Filt Rate - Afr Amer 23 mL/min (>60); Glucose 267 mg/dL (74-106); Phosphorus 3.4 mg/dL (2.5-4.9); Potassium 4.1 mmol/L (3.5-5.1); Sodium Level 138 mmol/L (136-145)
[2022-02-28 12:55] LABS: Vitamin D,25 Hydroxy 23.9 ng/mL
[2022-02-28 13:10] LABS: PTHIN 235.8 pg/mL (18.4-80.1)
== END | disposition home or self-care (01) ==
LOC: POLAB3 09:54
PROVIDERS: PCP Family Medicine Geriatric Medicine; Visit Provider Internal Medicine Nephrology
DX: N18.4 Chronic kidney disease, stage 4 (severe) (principal); E55.9 Vitamin D deficiency, unspecified
CPT/HCPCS: 36415; 80069; 82306; 83970; 85027

== ENCOUNTER → 2022-03-22 | Outpatient (CLI) | payer MEDICARE, SELFPAY ==
[2022-03-22 15:56] LABS: Absolute Lymphocyte Count 1.08 X10^3/uL (0.83-4.51); Absolute Neutrophil Count 6.3 X10^3/uL (2.0-7.7); Basophil# 0.02 X10^3/uL; Basophil% 0.2 % (0-1); Eosinophil# 0.09 X10^3/uL; Eosinophils% 1.1 % (0-5); Hematocrit 35.8 % (40-54); Hemoglobin 11.7 g/dL (13.0-16.5); Lymphocyte # 1.08 X10^3/ul (0.83-4.51); Lymphocyte % 13.4 % (19-41); Mean Corp Hgb Conc 32.7 g/dL (32-36); Mean Corpuscular Hgb 26.9 pg (27.0-32.0); Mean Corpuscular Volume 82.3 fL (80-94); Mean Platelet Vol. 9.9 fl (6.2-12.0); Monocyte% 6.2 % (0-10); NRBC Flagged by Analyzer 0 % (0-5); Neutrophil # 6.32 X10^3/uL (2.7-7.7); Neutrophil % 78.5 % (47-70); Platelet Count 134 K/mm3 (150-450); RBC Distribution Width CV 14.8 % (11.6-14.6); RBC Distribution Width SD 42.9 fl (35.1-43.9); Red Blood Count 4.35 M/mm3 (4.6-6.2); White Blood Count 8.1 K/mm3 (4.4-11.0)
[2022-03-22 16:25] LABS: AST(SGOT) 25 U/L (15-37); Alanine Aminotransfer ALT/SGPT 30 U/L (16-61); Albumin, Serum 3.3 g/dL (3.2-5.0); Alkaline Phosphatase 72 U/L (45-117); Anion Gap 5 (5-15); BUN 39 mg/dL (7-18); BUN/Creat Ratio 9.3 RATIO (10-20); Calcium,Total 8.9 mg/dL (8.5-10.1); Chloride 108 mmol/L (98-107); Creatinine, Serum 4.21 mg/dL (0.70-1.30); EST Glomerular Filtration Rate 15 mL/min (>60); Est Glom Filt Rate - Afr Amer 18 mL/min (>60); Globulin 3.2 g/dL (2.2-4.2); Glucose 272 mg/dL (74-106); Potassium 5.3 mmol/L (3.5-5.1); Protein, Total 6.5 g/dL (6.4-8.2); Sodium Level 139 mmol/L (136-145); Thyroid Stim Hormone (TSH) 0.91 uIU/mL (0.358-3.74)
[2022-03-22 17:15] LABS: Vitamin D,25 Hydroxy 28.4 ng/mL
== END | disposition home or self-care (01) ==
LOC: POLAB3 09:41
PROVIDERS: PCP Family Medicine Geriatric Medicine; Visit Provider Family Medicine Geriatric Medicine
DX: E11.9 Type 2 diabetes mellitus without complications (principal); E55.9 Vitamin D deficiency, unspecified; F52.8 Other sexual dysfunction not due to a substance or known physiological condition; I10 Essential (primary) hypertension
CPT/HCPCS: 36415; 80053; 82306; 84403; 84443; 85025

== ENCOUNTER → 2022-05-23 | Outpatient (CLI) | payer MEDICARE, SELFPAY ==
[2022-05-23 12:11] LABS: Albumin, Serum 3.4 g/dL (3.2-5.0); BUN 52 mg/dL (7-18); BUN/Creat Ratio 13.9 RATIO (10-20); Calcium,Total 9.4 mg/dL (8.5-10.1); Chloride 105 mmol/L (98-107); Creatinine, Serum 3.73 mg/dL (0.70-1.30); EST Glomerular Filtration Rate 17 mL/min (>60); Est Glom Filt Rate - Afr Amer 21 mL/min (>60); Glucose 232 mg/dL (74-106); Phosphorus 3.9 mg/dL (2.5-4.9); Sodium Level 137 mmol/L (136-145)
[2022-05-23 17:33] LABS: M R Staph aureus DNA By PCR Negative (Negative); Probe Check PASS; Staph aureus DNA By PCR NEGATIVE (Negative)
== END | disposition home or self-care (01) ==
LOC: POLAB3 11:26
PROVIDERS: PCP Family Medicine Geriatric Medicine; Visit Provider Internal Medicine Nephrology
DX: S81.809A Unspecified open wound, unspecified lower leg, initial encounter (principal); N18.4 Chronic kidney disease, stage 4 (severe); N25.81 Secondary hyperparathyroidism of renal origin; B95.62 Methicillin resistant Staphylococcus aureus infection as the cause of diseases classified elsewhere
CPT/HCPCS: 36415; 80069; 83970; 87070; 87205; 87640

== ENCOUNTER → 2022-05-31 | Outpatient (CLI) | payer MEDICARE, SELFPAY ==
[2022-05-31 12:23] LABS: Hematocrit 36.6 % (40-54); Hemoglobin 11.8 g/dL (13.0-16.5); Mean Corp Hgb Conc 32.2 g/dL (32-36); Mean Corpuscular Hgb 27.6 pg (27.0-32.0); Mean Corpuscular Volume 85.7 fL (80-94); Mean Platelet Vol. 10.2 fl (6.2-12.0); Platelet Count 156 K/mm3 (150-450); RBC Distribution Width SD 42.9 fl (35.1-43.9); Red Blood Count 4.27 M/mm3 (4.6-6.2); White Blood Count 9.1 K/mm3 (4.4-11.0)
[2022-05-31 12:32] LABS: Uric Acid 8.7 mg/dL (3.5-7.2)
[2022-05-31 12:35] LABS: Vitamin D,25 Hydroxy 27.1 ng/mL
[2022-05-31 12:38] LABS: Protein, Urine (Random) 433.4 mg/dL (<11.9); Protein:Creat Ratio 3234 mg/g CRE (0-200)
== END | disposition home or self-care (01) ==
LOC: POLAB3 10:24
PROVIDERS: PCP Family Medicine Geriatric Medicine; Visit Provider Internal Medicine Nephrology
DX: E11.22 Type 2 diabetes mellitus with diabetic chronic kidney disease (principal); N18.4 Chronic kidney disease, stage 4 (severe); E55.9 Vitamin D deficiency, unspecified; M10.9 Gout, unspecified
CPT/HCPCS: 36415; 82306; 82570; 84156; 84550; 85027

== ENCOUNTER 2022-06-21 07:51 | Day surgery (SDC) | payer MEDICARE, SELFPAY ==
[2022-06-05 15:23] LABS: Absolute Lymphocyte Count 1.45 X10^3/uL (0.83-4.51); Absolute Neutrophil Count 8.5 X10^3/uL (2.0-7.7); Basophil# 0.03 X10^3/uL; Basophil% 0.3 % (0-1); Eosinophil# 0.08 X10^3/uL; Eosinophils% 0.7 % (0-5); Hematocrit 37.6 % (40-54); Hemoglobin 12.5 g/dL (13.0-16.5); Lymphocyte # 1.45 X10^3/ul (0.83-4.51); Lymphocyte % 13.4 % (19-41); Mean Corp Hgb Conc 33.2 g/dL (32-36); Mean Corpuscular Hgb 27.7 pg (27.0-32.0); Mean Corpuscular Volume 83.4 fL (80-94); Monocyte# 0.71 X10^3/uL; Monocyte% 6.6 % (0-10); NRBC Flagged by Analyzer 0 % (0-5); Neutrophil # 8.48 X10^3/uL (2.7-7.7); Neutrophil % 78.6 % (47-70); Platelet Count 190 K/mm3 (150-450); RBC Distribution Width CV 13.9 % (11.6-14.6); RBC Distribution Width SD 41.7 fl (35.1-43.9); Red Blood Count 4.51 M/mm3 (4.6-6.2); White Blood Count 10.8 K/mm3 (4.4-11.0)
[2022-06-05 16:16] LABS: Anion Gap 10 (5-15); BUN 60 mg/dL (7-18); BUN/Creat Ratio 14.5 RATIO (10-20); Calcium,Total 9.2 mg/dL (8.5-10.1); Chloride 107 mmol/L (98-107); Creatinine, Serum 4.13 mg/dL (0.70-1.30); EST Glomerular Filtration Rate 16 mL/min (>60); Est Glom Filt Rate - Afr Amer 19 mL/min (>60); Glucose 195 mg/dL (74-106); Potassium 4.3 mmol/L (3.5-5.1); Sodium Level 140 mmol/L (136-145)
[2022-06-20 08:29] VITALS: BMI 38.5
--- NOTE | 2022-06-21 09:09 | PCM.HP.BLA ---
History and Physical Date of Admission: 06/21/22 Chief Complaint:? Fistula Check Electric Cell Tender Required: No Is patient in pain?: No Allergies No Known Allergies Allergy (Verified 06/05/22 13:26) Medications lisinopril 20 mg tablet (Zestril) 40 mg PO 1400 06/08/17 [History Confirmed 06/05/22] metoprolol tartrate 25 mg tablet 50 mg PO BID 06/08/17 [History Confirmed 06/05/22] sildenafil 100 mg tablet (Viagra) 100 mg PO PRN PRN ED 06/08/17 [History Confirmed 06/05/22] Potassium Chloride 20 meq PO DAILY 11/29/20 [History Confirmed 06/05/22] atorvastatin 40 mg tablet 40 mg PO QHS 11/29/20 [History Confirmed 06/05/22] lidocaine 5 % topical patch 1 patch topical PRN PRN Pain 11/29/20 [History Confirmed 06/05/22] amlodipine 5 mg tablet 5 mg PO 1200 01/17/22 [History Confirmed 06/05/22] calcitriol 0.25 mcg capsule 0.25 mcg PO DAILY 01/17/22 [History Confirmed 06/05/22] citalopram 20 mg tablet (Celexa) 20 mg PO DAILY 01/17/22 [History Confirmed 06/05/22] ergocalciferol (vitamin D2) 1,250 mcg (50,000 unit) capsule (Vitamin D2) 1,250 mcg PO QMONTH 01/17/22 [History Confirmed 06/05/22] insulin regular human 100 unit/mL injection solution (Novolin R Regular U-100 Insulin) 40 unit subcut BID 01/17/22 [History Confirmed 06/05/22] PFSH Medical History? Arthritis Back pain Chronic kidney disease (CKD) stage G4/A3, severely decreased glomerular filtration rate (GFR) between 15-29 mL/min/1.73 square meter and albuminuria creatinine ratio greater than 300 mg/g Chronic kidney disease, stage 4 (severe) Depression Dietary restriction Former smoker History of diabetes mellitus History of diabetic neuropathy History of ED History of edema History of hypertension History of lymphedema History of pain when walking History of stress test Insulin dependent diabetes mellitus Leg cramps Loss of hearing Low iron Marijuana use Restless legs Shortness of breath on exertion Surgical History? History of umbilical hernia repair Hx of hand surgery S/P arteriovenous (AV) fistula creation S/P tonsillectomy Status post hip surgery Status post knee surgery Family History? Father Diabetes Heart disease Hypertension Kidney disease CAD (coronary artery disease) Social History? Smoking Status:? Former smoker alcohol intake:? never HPI HPI HPI: Patient is a 66 y/o M I am following for chronic renal failure stage 4. Dr. Vela performed a left forearm radiocephalic arteriovenous hemodialysis fistula creation on 01/23/22. Patient tolerated the procedure well. Patient was recently evaluated by Dr. Pollard who is concerned that the fistula is not fully functioning. Patient states he has not been able to feel the fistula, however this is not new. He has not been able to feel for the fistula since the surgery was completed. He is not currently on dialysis. ROS General General: No weight change, appetite, fatigue, colon cancer, breast cancer or weakness HEENT HEENT: Yes swollen glands; No difficulty swallowing, eye injury, eye surgery or hoarseness Endo Endocrine: Yes diabetes mellitus; No thyroid disease, thyroid cancer, Hair loss, heat intolerance or cold intolerance Skin Skin: Yes rash; No changing moles Breast Breast: No left breast lump, right breast lump, nipple discharge, breast pain, abnormal mammogram, abnormal US or breast enlargement Musc Musculoskeletal: Yes arthritis and gout; No back problems, rheumatoid arthritis or joint pain Cardio Cardiovascular: Yes high blood pressure; No murmur, pacemaker, heart disease, atrial fibrillation, heart attack, heart stent, palpitations, shortness of breat with exertion or chest pain Psych Psychiatric: Yes depression; No anxiety or hearing voices Resp Respiratory: Yes shortness of breath, Yes sleep apnea, Yes cough, No COPD, No asthma, No emphysema and No wheezing Gastro Gastrointestinal: No abdominal pain, No nausea or vomiting, Yes diarrhea, No constipation, No blood in stool, No acid reflux, No hemorrhoids, No ulcers, No gallbladder problem and No black,tarry stools Marbin Hematologic: No blood thinners, No blood disorders, No bleeding, No anemia and No blood clots Neuro Neurologic: No system reviewed and no additional complaints, except as documented, No as per HPI, No abnormal gait, No abnormal hearing, No abnormal movements, No abnormal speech, No behavioral changes, No burning sensations, No confusion, No convulsions, No disequilibrium, No dizziness, No localized weakness, No frequent falls, No headache(s), No lack of coordination, No loss of vision, No memory loss, Yes numbness, No other visual disturbances, No radicular pain, No restless legs, No sensory deficit, No syncope, Yes tingling, No tremor(s), No weakness and No other Exam Const General: cooperative, healthy appearing, comfortable and no acute distress [facility] Head: normal to inspection Eyes General: appearance normal, both eyes and all related structures Neck Neck: normal visual inspection Neck mass: No Resp Effort & Inspection: normal respiratory effort Auscultation: clear to auscultation bilaterally Cardio Rate: regular rate Rhythm: regular rhythm GI Inspection: normal to inspection and obesity Palpation: soft Musc Cervical Spine: normal cervical lordosis Skin General: no rashes or lesions noted Neuro General: no focal motor deficits and CN's II-XI intact bilaterally Extrem General: normal to inspection Other: Left forearm AV fistula- good pulse, diminished bruit and thrill Psych Appearance: grossly normal Affect: normal affect Assessment and Plan Assessment and Plan (1) Problem with dialysis access: ?Status:?Acute ?Plan: Dr. Vela has also evaluated this patient. Patient's fistula is slow to mature. Dr. Vela will plan to perform a left forearm fistulogram. Procedure details, risks and benefits have been explained. Patient has had the opportunity to ask and have questions answered. Patient verbally understands and agrees with the plan I have re-examined the patient. There are no clinical changes since date of exam. Sam Vela M.D., F.A.C.S.
--- NOTE | 2022-06-21 10:23 | OP.PCM_ITS ---
Report of Operation Date of Procedure: 06/21/22 Pre-Operative Diagnosis: Failure to mature left forearm radiocephalic hemodialy sis fistula Post-Operative Diagnosis: Left forearm radiocephalic hemodialysis fistula proximal venous stenosis [place] anastomosis and in the mid forearm Surgery/Procedure Performed:: Left upper extremity fistulogram with carbon dioxide and 5 x 80 mm EverCross angioplasty Description of Surgical Findings:: Timeout informed consent was obtained. 67-year-old gentleman was taken to the special procedures lab placed on the table he received 50 mcg of fentanyl milligram Versed the left upper tremor sterilely prepped and draped under ultrasound guidance closer to the antecubital space 2% lidocaine was instilled I did require some effort to get a micropuncture needle and retrograde with flow due to the lack of turgor and the vein. Was able to get a micropuncture wire then a 6 [place] orthopedic dilator then used an angled Glidewire and a 4 [place] angled glide cath to gain access of the radial artery proximal to the anastomosis. Using 15 cc of hand-injection carbon oxide fistulogram was obtained demonstrating area of stenosis within about 2 to 3 cm of the anastomosis. A 5 x 80 mm EverCross balloon was placed across the anastomosis and the proximal portion of the fistula was dilated up to 18 manuel of pressure. The balloon was then further withdrawn into the midportion of the fistula and reinsufflated and there was another focal area of stenosis in the mid forearm. Each balloon was held for 3 minutes. Having achieved that the balloon was removed and the glide cath was advanced back into the radial artery and a final fistulogram was obtained demonstrating now very rapid flow in the fistula and resolution of the 2 areas of stenosis. There was now very rapid outflow. Because I was using carbon dioxide I did not perform further central views due to the amount of carbon oxide that would be required and as I felt that I addressed the areas of the fistula and concern Images demonstrate left forearm radial cephalic arteriovenous hemodialysis fistula. There is a sidebranch within the proximal 10 cm of the fistula. 2 areas of focal venous stenosis resolved with angioplasty. Sam Vela M.D., F.A.C.S. Surgeon: Sam Vela Type of Anesthesia: IV Sedation and Local
== END 2022-06-21 11:30 | disposition home or self-care (01) ==
LOC: CLSP 07:53
PROVIDERS: Physician Assistant; PCP Family Medicine Geriatric Medicine; Visit Provider Surgery
DX: T82.858A Stenosis of other vascular prosthetic devices, implants and grafts, initial encounter (principal); E11.22 Type 2 diabetes mellitus with diabetic chronic kidney disease; N18.4 Chronic kidney disease, stage 4 (severe); Z79.4 Long term (current) use of insulin; I12.9 Hypertensive chronic kidney disease with stage 1 through stage 4 chronic kidney disease, or unspecified chronic kidney disease; F32.A Depression, unspecified; Z87.891 Personal history of nicotine dependence; Z79.899 Other long term (current) drug therapy; X58.XXXA Exposure to other specified factors, initial encounter
CPT/HCPCS: 36415; 36902; 76937; 80048; 85025; 99152; 99153; Q9967; C1725; C1769

== ENCOUNTER 2022-07-02 14:21 | Emergency (ER) | payer MEDICARE, SELFPAY ==
[2022-07-02 14:22] VITALS: BP 162/66; PULSE 64; RESP 18; TEMP 36.4; O2SAT 97; BMI 37.9
--- NOTE | 2022-07-02 14:52 | ED.VIS.BACK ---
HPI History of Present Illness Chief Complaint: Back Informant: patient Onset/Context/Timing Onset: Yesterday Context: Gradual Onset Timing: Continuous Quality: - (Stabbing) Location: Lumbar Worsened by: improves with Movement Relieved by: Nothing Associated Symptoms Associated Symptoms: Abdominal Pain; Negative for Numbness, Tingling, Radiation to Right Leg, Radiation to Left Leg, Fever, Dysuria, Unable to Ambulate, Unable to Transfer, Urinary Retention, Urinary Incontinence, Constipation or Fecal Incontinence Narrative Narrative: Patient presents with back pain that began yesterday. Patient states he was having some pain in his left lower back last week. Patient states that yesterday he started having pain in his right lower back. Patient describes the pain as stabbing. Patient states the pain occasionally radiates into his abdomen. Patient states it is worse with certain movements. Patient denies any radiation of pain to his lower extremities. Patient denies any trauma or injury. Patient denies any bowel or bladder changes. Patient denies any saddle anesthesia. [facility] Medical History Arthritis Back pain Chronic kidney disease (CKD) stage G4/A3, severely decreased glomerular filtration rate (GFR) between 15-29 mL/min/1.73 square meter and albuminuria creatinine ratio greater than 300 mg/g Chronic kidney disease, stage 4 (severe) Depression Dietary restriction Former smoker History of diabetes mellitus History of diabetic neuropathy History of ED History of edema History of hypertension History of lymphedema History of pain when walking History of stress test Insulin dependent diabetes mellitus Leg cramps Loss of hearing Low iron Marijuana use Restless legs Shortness of breath on exertion Home Medications lisinopril 20 mg tablet (Zestril) 40 mg PO 1400 06/08/17 [History Last Taken Unknown] metoprolol tartrate 25 mg tablet 50 mg PO BID 06/08/17 [History Last Taken 01/23/22 06:00] sildenafil 100 mg tablet (Viagra) 100 mg PO PRN PRN ED 06/08/17 [History Last Taken Unknown] Potassium Chloride 20 meq PO DAILY 11/29/20 [History Last Taken Unknown] atorvastatin 40 mg tablet 40 mg PO QHS 11/29/20 [History Last Taken Unknown] lidocaine 5 % topical patch 1 patch topical PRN PRN Pain 11/29/20 [History Last Taken Unknown] amlodipine 5 mg tablet 5 mg PO 1200 01/17/22 [History Last Taken Unknown] calcitriol 0.25 mcg capsule 0.25 mcg PO DAILY 01/17/22 [History Last Taken Unknown] citalopram 20 mg tablet (Celexa) 20 mg PO DAILY 01/17/22 [History Last Taken Unknown] ergocalciferol (vitamin D2) 1,250 mcg (50,000 unit) capsule (Vitamin D2) 1,250 mcg PO QMONTH 01/17/22 [History Last Taken Unknown] insulin regular human 100 unit/mL injection solution (Novolin R Regular U-100 Insulin) 40 unit subcut BID 01/17/22 [History Last Taken Unknown] hydrocodone-acetaminophen 5-325mg 5mg-325mg 1 tab PO Q6H PRN PRN Pain 3 days #10 TABLETS 07/02/22 [Rx Last Taken Unknown] Allergy/AdvReac Type Severity Reaction Status Date / Time No Known Allergies Allergy Verified 07/02/22 14:21 Family History Father Diabetes Heart disease Hypertension Kidney disease CAD (coronary artery disease) Surgical History History of umbilical hernia repair Hx of hand surgery S/P arteriovenous (AV) fistula creation S/P tonsillectomy Status post hip surgery Status post knee surgery Social History Smoking Status: Former smoker alcohol intake: never ROS ROS ED Constitutional Constitutional ED: Denies chills or fever(s) Eyes Eyes: Denies blurry vision or change in vision ENT ENT ED: Reports rhinorrhea; Denies sore throat Cardiovascular Cardiovascular: Denies chest pain or palpitations Respiratory/Chest Respiratory/Chest: Reports dyspnea; Denies cough Gastrointestinal Gastrointestinal: Reports abdominal pain; Denies nausea or vomiting Genitourinary Genitourinary ED: Denies dysuria or hematuria Musculoskeletal Musculoskeletal: Reports back pain; Denies neck pain Integumentary Denies abscess or rash Neurologic Neurologic: Denies headache(s) or weakness Allergic/Immunologic Allergic/Immunologic ED: Denies mouth swelling or urticaria EXAM Physical Exam Const Vital Signs: 07/02/22 14:22 Temperature 97.6 F L Temperature Source Temporal Pulse Rate 64 Respiratory Rate 18 Blood Pressure 162/66 H Blood Pressure Mean 98 Pulse Ox 97 Oxygen Delivery Method Room Air Positive well nourished, well developed and obese General Appearance ED: well developed and NAD Nutritional Appearance: obese HEENT Reports moist mucous membranes Neck supple and no JVD Resp normal respiratory effort and clear to auscultation bilaterally Cardio regular rate, regular rhythm and no murmurs GI normal to inspection, nondistended, normoactive bowel sounds and non-tender Palpation: soft Back/Spine General Back: CVA tenderness right Lumbar Spine / Lower Back: ROM limited and straight leg raise negative bilaterally Extremity normal to inspection General Extremety ED: Negative for edema or tenderness General Extremity: Negative for edema Neuro oriented x3, CN's II-XII intact bilaterally and no sensory deficits noted Sensorium / Orientation: alert Motor Exam: strength 5/5 throughout Psych mental status grossly normal Skin no rashes or lesions noted MDM MDM MDM Narrative Medical decision making narrative: CBC was within normal limits. Comprehensive metabolic profile shows a BUN of 50 and creatinine of 3.96. These are consistent with prior results. Glucose was 199. Urinalysis does not show any evidence of urinary tract infection or hematuria. CT scan of the abdomen and pelvis was obtained. There are no acute findings in the abdomen or pelvis. There is a focal area of low-attenuation in the inferior right lobe of the liver. There are new pulmonary nodules noted in the base of the lungs bilaterally. These are new compared to previous images. These are suspicious for metastatic disease. Patient was advised of his findings. Patient was given a prescription for [place]. Patient was instructed to use ice to the area. Patient was instructed to follow-up with his primary care physician in 3 to 5 days. Patient understood and was agreeable with the plan. All questions were answered. Lab Data Attestation: I reviewed the patient's lab results. Labs: Laboratory Results - last 24 hr 07/02/22 07/02/22 07/02/22 15:10 15:10 16:00 WBC 9.4 RBC 4.28 L Hgb 11.7 L Hct 35.8 L MCV 83.6 MCH 27.3 MCHC 32.7 RDW Std Deviation 43.6 RDW Coeff of Maxim 14.6 Plt Count 158 MPV 9.4 Immature Gran % (Auto) 0.400 Neut % (Auto) 76.9 H Lymph % (Auto) 13.4 L [place] % (Auto) 7.8 Eos % (Auto) 1.2 Baso % (Auto) 0.3 Absolute Neuts (auto) 7.2 Absolute Lymphs (auto) 1.25 Nucleated RBC % 0 Sodium 139 Potassium 5.0 Chloride 108 H Carbon Dioxide 24.0 Anion Gap 7 BUN 50 H Creatinine 3.96 H Estim Creat Clear Calc 16.56 Est GFR (MDRD) Af Amer 20 L Est GFR (MDRD) Non-Af 16 L BUN/Creatinine Ratio 12.6 Glucose 199 H Calcium 9.0 Total Bilirubin 0.80 AST 22 ALT 26 Alkaline Phosphatase 86 Total Protein 7.3 Albumin 3.6 Globulin 3.7 Albumin/Globulin Ratio 1.0 Urine Color Yellow Urine Clarity Clear Urine pH 6.0 Ur Specific [place] 1.010 Urine Protein Negative Urine Glucose (UA) Normal Urine Ketones Negative Urine Occult Blood Negative Urine Nitrite Negative Urine Bilirubin Negative Urine Urobilinogen Normal Ur Leukocyte Esterase Negative Urine RBC 0 SEEN Urine WBC 0 SEEN Ur Squamous Epith Cells 0 SEEN Urine Bacteria 0 SEEN Urine Mucus 0 SEEN Radiography Diagnostic Testing: Clinical Impression(s) from Imaging Studies Abdomen/Pelvis CT 07/02/22 14:56 IMPRESSION: No acute findings in the abdomen or pelvis. Hepatosplenomegaly with focal area of low attenuation in inferior right lobe of the liver measuring up to 5.6 cm. Further characterization would require multiphasic hepatic CT or MRI. New pulmonary nodules at the lung base since the reference examination. Findings suspicious for metastatic disease. Electronically Signed: Jose Manuel Sibley MD at 16:22 EDT [place] Location ID and State: [facility] / [place] Tel , Service support , Discharge Plan Triage Chief Complaint: Back ED Provider: Tj Briseno Dx/Rx/DC Orders Clinical Impression: Back pain, Chronic kidney disease, stage 4 (severe), Multiple pulmonary nodules Instructions: ED Back Pain (Acute or Chronic) Prescriptions: New hydrocodone-acetaminophen [hydrocodone-acetaminophen] 1 TABLET tablet 1 tab PO Q6H PRN PRN (Reason: Pain) 3 Days Qty: 10 0RF No Action lisinopril [Zestril] 20 MG tablet 40 mg PO 1400 sildenafil [Viagra] 100 MG tablet 100 mg PO PRN PRN (Reason: ED) metoprolol tartrate 25 MG tablet 50 mg PO BID atorvastatin 40 MG tablet 40 mg PO QHS lidocaine 1 PATCH patch 1 patch TOPICAL PRN PRN (Reason: Pain) Potassium Chloride 20 MEQ Tab.Er.Prt 20 meq PO DAILY amlodipine 5 mg Tablet 5 mg PO 1200 citalopram [Celexa] 20 mg Tablet 20 mg PO DAILY Novolin R Regular U-100 Insuln 100 unit/mL Solution 40 unit SUBCUT BID ergocalciferol (vitamin D2) [Vitamin D2] 1,250 mcg (50,000 unit) Capsule 1,250 mcg PO QMONTH calcitriol 0.25 mcg Capsule 0.25 mcg PO DAILY Primary Care Provider: Urbano Aranda Chi Referrals: Urbano Aranda Chi, MD [Primary Care Provider] - 3-5 Days Disposition Disposition: Home, Self Care
--- NOTE | 2022-07-02 14:56 | CT_ITS ---
INDICATION: Right flank pain EXAMINATION: CT ABDOMEN AND PELVIS WITHOUT CONTRAST - CT Abdomen And Pelvis W/O Contrast Injection TECHNIQUE: Helically acquired images were obtained of the abdomen and pelvis without oral or IV contrast. A radiation dose optimization technique was used for this scan. IV Contrast dosage and agent: None. Oral contrast: None. COMPARISON: 04/19/2019 FINDINGS: LOWER CHEST: Bibasilar pulmonary nodules new from prior study, largest right lung base 9 mm, left lung base 10 mm. Small calcified granuloma right posterior sulcus medially. No acute pulmonary findings. No cardiomegaly or pericardial effusion. LIVER: Enlarged to 20 cm. 5 x 6 cm area of low attenuation at the inferior right lobe. GALLBLADDER AND BILIARY TREE: No calcified gallstones. No gallbladder distension or wall edema. No intra- or extrahepatic biliary ductal dilation. PANCREAS: No focal cystic or solid mass. SPLEEN: Increasing splenomegaly. ADRENAL GLANDS: No nodules. KIDNEYS AND URETERS: No nephrolithiasis or hydronephrosis. PERITONEUM: No ascites or free air. BOWEL: Normal appendix. No stomach or bowel distension. No focal inflammatory change. LYMPH NODES: No enlarged mesenteric or retroperitoneal lymph nodes. VESSELS: Aorta is non-dilated. URINARY BLADDER: Minimally distended. REPRODUCTIVE ORGANS: No pelvic masses. ABDOMINAL WALL: No discrete abdominal or pelvic wall hernia. BONES: No acute or aggressive abnormality. Stable right hip prosthesis. CT/Abdomen/Pelvis without Cont IMPRESSION: No acute findings in the abdomen or pelvis. Hepatosplenomegaly with focal area of low attenuation in inferior right lobe of the liver measuring up to 5.6 cm. Further characterization would require multiphasic hepatic CT or MRI. New pulmonary nodules at the lung base since the reference examination. Findings suspicious for metastatic disease. Electronically Signed: Jose Manuel Sibley MD at 16:22 EDT ,
[2022-07-02] MEDS: Morphine 4 MG/ML Syringe IV (15:07)
[2022-07-02] MEDS: Ondansetron 4 MG/2 ML Vial IV (15:07)
[2022-07-02 15:27] LABS: Absolute Lymphocyte Count 1.25 X10^3/uL (0.83-4.51); Absolute Neutrophil Count 7.2 X10^3/uL (2.0-7.7); Basophil# 0.03 X10^3/uL; Basophil% 0.3 % (0-1); Eosinophil# 0.11 X10^3/uL; Eosinophils% 1.2 % (0-5); Hematocrit 35.8 % (40-54); Hemoglobin 11.7 g/dL (13.0-16.5); Lymphocyte # 1.25 X10^3/ul (0.83-4.51); Lymphocyte % 13.4 % (19-41); Mean Corp Hgb Conc 32.7 g/dL (32-36); Mean Corpuscular Hgb 27.3 pg (27.0-32.0); Mean Corpuscular Volume 83.6 fL (80-94); Mean Platelet Vol. 9.4 fl (6.2-12.0); Monocyte# 0.73 X10^3/uL; Monocyte% 7.8 % (0-10); NRBC Flagged by Analyzer 0 % (0-5); Neutrophil % 76.9 % (47-70); Platelet Count 158 K/mm3 (150-450); RBC Distribution Width CV 14.6 % (11.6-14.6); RBC Distribution Width SD 43.6 fl (35.1-43.9); Red Blood Count 4.28 M/mm3 (4.6-6.2); White Blood Count 9.4 K/mm3 (4.4-11.0)
[2022-07-02 15:51] LABS: AST(SGOT) 22 U/L (15-37); Alanine Aminotransfer ALT/SGPT 26 U/L (16-61); Albumin, Serum 3.6 g/dL (3.2-5.0); Alkaline Phosphatase 86 U/L (45-117); Anion Gap 7 (5-15); BUN 50 mg/dL (7-18); BUN/Creat Ratio 12.6 RATIO (10-20); Chloride 108 mmol/L (98-107); Creatinine, Serum 3.96 mg/dL (0.70-1.30); EST Glomerular Filtration Rate 16 mL/min (>60); Est Glom Filt Rate - Afr Amer 20 mL/min (>60); Estimated Creatinine Clearance 16.56 ml/min; Globulin 3.7 g/dL (2.2-4.2); Glucose 199 mg/dL (74-106); Protein, Total 7.3 g/dL (6.4-8.2); Sodium Level 139 mmol/L (136-145)
[2022-07-02 16:20] LABS: Bacteria 0 SEEN /hpf (None Seen); Mucous, Urine 0 SEEN /hpf (<or=2+); Red Blood Cells-Urine 0 SEEN /hpf (0-5); Squamous Epithelial Cells - UA 0 SEEN /hpf (0-5); White Blood Cells 0 SEEN /hpf (0-5)
[2022-07-02 16:48] LABS: Color, Urine Yellow (Yellow); Glucose, Dipstick Normal (Normal); Ketone-Dipstick Negative (Negative); Leukocyte Esterase-Dipstick Negative /ul (Negative); Nitrite-Dipstick Negative (Negative); Occult Blood-Urine Negative /ul (Negative); Protein-Dipstick Negative (Negative); Urine Bilirubin Dipstick Negative (Negative); Urine Clarity Clear (Clear); Urine Urobilinogen Normal (Normal)
== END 2022-07-02 17:22 | disposition home or self-care (01) ==
PROVIDERS: Emergency Provider Emergency Medicine; PCP Family Medicine Geriatric Medicine; Visit Provider Emergency Medicine
DX: M54.50 Low back pain, unspecified (principal); N18.4 Chronic kidney disease, stage 4 (severe); R91.8 Other nonspecific abnormal finding of lung field; E66.9 Obesity, unspecified; Z87.891 Personal history of nicotine dependence
CPT/HCPCS: 74176; 80053; 81001; 85025; 96374; 96375; 99283; J7030; A4216; J2405

== ENCOUNTER → 2022-07-12 | Outpatient (CLI) | payer MEDICARE, SELFPAY ==
--- NOTE | 2022-07-12 10:30 | PET_ITS ---
EXAMINATION: FDG PET-CT INDICATIONS: A 67-year-old male with a history of apparent pulmonary nodularity. COMPARISON EXAMINATION: INDEX LESION SIZE SUV INTERPRETATION Left lower lung, left lower lobe 9.3 mm 3.0 Fulfills quantitative criteria for viable neoplasm. Right lobe hepatic parenchyma segment 61.3 mm 6.7 > 2.0 Fulfills quantitative criteria for viable neoplasm. Abdominal retroperitoneum multifocal 17.9 mm largest 8.8 max Fulfills quantitative criteria for viable neoplasm. Left adrenal gland 4.1 Quantitative criteria for viable neoplasm are fulfilled. Osseous skeletal structures 7.7 max Fulfills quantitative criteria for viable neoplasm. TECHNIQUE: Following the intravenous administration of 14.58 mCi of F-18 deoxyglucose via the right antecubital fossa, multiplanar image acquisitions of the head, neck, chest, abdomen and pelvis to level of mid-thigh, lower extremities obtained at one hour post radiopharmaceutical administration contemporaneously interpreted with the current CT of the head, neck, chest, abdomen and pelvis to level of mid-thigh, lower extremities dated 07/12/22 via coregistration reveal: SERUM GLUCOSE LEVEL: 145 mg/dl. HEIGHT: 66 inches. WEIGHT: 235 lbs. FINDINGS: Head/Neck: There is no evidence of abnormal increased glucose metabolism in the pharyngeal mucosal space, parapharyngeal space, bilateral-lateral and anterior neck, hypopharynx and distribution of the laryngeal structures. The visualized portion of the cerebral cortical-subcortical structures demonstrate symmetric and preserved glucose metabolism. CHEST: Focal increased glucose metabolism is noted in the left lower posteromedial lung zone, left lower lobe. The calculated maximum standard uptake value is 3.0. The maximum axial diameter of the corresponding parenchymal density is 9.[address] findings are as follows. There is atherosclerotic calcification defined in the thoracic aorta without evidence of dilatation-aneurysm formation. Coronary arterial calcification is observed. Calcified density noted in the subcarinal mediastinum to the right of the midline demonstrates no evidence of increased tracer uptake. Right and left axillary soft tissue densities are nonglucose avid. Additional parenchymal densities defined in the bilateral hemithorax are nonglucose avid. Abdomen/Pelvis: Heterogeneous radiopharmaceutical concentration is defined in the right lobe of the hepatic parenchyma involving segment . The calculated maximum standard uptake value is 6.7 with a lesion to liver background ratio greater than 2.0. The maximum axial diameter of the metabolic, morphologic abnormality is 61.3 mm. Enhanced radiotracer is defined in the mid-lower abdominal retroperitoneum in the distribution of the superior mesenteric, bilateral-lateral aortic, and inferior mesenteric lymph node basins. The calculated maximum standard uptake value is 8.8. The maximum axial diameter of the largest corresponding soft tissue density is 17.9 mm. Facilitated FDG uptake is noted in the distribution of the left adrenal gland. The calculated maximum standard uptake value is 4.1. The spleen is enlarged measuring approximately 18.1 cm in its greatest vertical dimension (normal less than 12.5 cm). The calculated maximum standard uptake value is less than or equal to the hepatic parenchymal reference value. Normal physiologic distribution of the radiopharmaceutical is apparent in the hepatic (3.8) and splenic parenchyma, both renal units, bladder and visualized intestinal tract. Diffuse radiopharmaceutical concentration is noted in all four quadrants of the abdomen and pelvis. Pertinent abdomen and pelvis CT findings are as follows. There is atherosclerotic calcification defined in the abdominal aorta without evidence of dilatation-aneurysm formation. Abdominal-pelvic arterial calcification is defined. Colonic diverticula are defined without evidence of diverticulitis. Bilateral inguinal soft tissue densities with fatty hilus are nonglucose avid. Calcification is defined within the prostate gland. Beam hardening artifact attributed to a right hip arthroplasty compromises evaluation of CT of the pelvis. Skeletal: Increase is noted in the left posterior fifth rib at the costovertebral junction, the left mid femoral diaphysis, the region of the right acetabulum. The calculated maximum standard uptake value is 7.7. Primarily lytic change is noted in the region of the left sixth rib. PET/PET/CT Tumor Base -Thigh Init IMPRESSION: 1. ABNORMAL EXAMINATION INDICATIVE OF MALIGNANT-VIABLE NEOPLASM. 2. Increased FDG concentration is demonstrated in the posteromedial aspect of the left lower lobe fulfills quantitative criteria for viable neoplasm. 3. Enhanced tracer uptake noted in the right lobe of the hepatic parenchyma involving segment fulfills quantitative criteria for malignant transformation. 4. Neoplastic infiltration is multifocally apparent in the abdominal retroperitoneum. 5. The left adrenal gland hypermetabolic focus fulfills quantitative criteria for neoplasia. 6. Skeletal metastatic disease is noted in several locations in both the appendicular and axial skeletal structures as articulated above. Electronic Signature Jovan Schmid D.O. Accurate Quantification of SUVs for this report are calculated using the [employer]. (U.S. Patent No. [phone] [id number]). Standardization and correction of the FDG SUV metric via [employer] technology allow for vendor non-specific objective quantitative examination comparison and optimization of the sensitivity and specificity of the FDG PET-CT examination. Electronically Signed: Jovan Schmid, at 6:59 EDT ,
== END | disposition home or self-care (01) ==
LOC: ONC 09:49
PROVIDERS: PCP Family Medicine Geriatric Medicine; Referring Provider Family Medicine Geriatric Medicine; Visit Provider Family Medicine Geriatric Medicine
DX: R91.8 Other nonspecific abnormal finding of lung field (principal)
CPT/HCPCS: 78815; A9552

== ENCOUNTER 2022-07-31 10:10 | Outpatient (CLI) | payer MEDICARE, SELFPAY ==
[2022-07-31] VITALS (11 sets, daily range): BP systolic 138–222; BP diastolic 34–89; PULSE 53–65; RESP 12–24; TEMP 36.4; O2SAT 66–100; BMI 37.1
--- NOTE | 2022-07-31 | IMM_PTH ---
PATIENT: LUCIE PEREZ LOC: CT U#:[id number] AGE/SX: 67/M ROOM: RE07/31/[address]: Dr. Malik Pollard MD : [id number] BED: DIS: 07/31/2022 SPEC #: [id number] RECD: 08/01/22 15:06 STATUS: MARY REQ #: [id number] MAYRA: 07/31/22 00:[address]: Malik Pollard DEPT: IMMUNOHISTOCHEMISTRY RECD BY: Jenn Chadwick ENTERED: 08/01/22 15:08 SP TYPE: IMMUNO OTHR DR: Dr. Urbano Aranda MD Tissues: Liver, NOS Procedures: RCC (add) NAPSIN A (add) CK20 (add) CK5-6 (add) CK7 (add) CK8 (add) HEP PAR (add) TTF1 (add) Pankeratin (initial) P40 (add) PSAP (add) PHYSICIAN & [address] [address] SPECIMEN INFORMATION: Tissue Source: Liver mass Clinical Info: Liver mass Specimen Number: [id number] CPT code: 56214, 89844 x10 METHODOLOGY: Deparaffinized sections of prefer/formalin-fixed tissue or PAP/DQ stained slides are incubated with monoclonal/polyclonal antibodies/oligonucleotide probes. Localization is made via biotin free immunoperoxidase method. Appropriate controls are performed and reacted as expected. Results on target cell population are indicated in the following table: RESULTS: ANTIBODY / CLONE RESULT AE1-3 (AE1/AE3/PCK26) positive CK7 (OV-TL12/30) positive CK8 (98enanN24) positive CK20 (KS20.8) negative TTF-1 (8G7G3/1) negative Napsin A (Rabbit Polyclonal) positive HepPar (OCh1E5) negative RCC (PN-15) negative PSAP (PASE/4LJ) negative CK5-6 (D5 & 1684) positive, focal P40 (BC28) negative These tests were developed and their performance characteristics determined by [facility]. They may not have been cleared or approved by the U.S. Food and Drug Administration. The FDA has determined that such clearance or approval is not necessary. The above immunohistochemical/dualISH markers are ordered and reviewed by the Pathologist. INTERPRETATION: Liver mass, ultrasound-guided liver biopsy: Non-small cell carcinoma, favor adenocarcinoma. See comment. ORQUIDEA:henrietta 08/02/2022 Comment: IHC profile is not conclusive for primary; however, it includes but not limited to upper gastrointestinal tract, pancreas, lung or cholangiocarcinoma.
--- NOTE | 2022-07-31 | LIV_PTH ---
PATIENT: LUCIE PEREZ LOC: CT U#:[id number] AGE/SX: 67/M ROOM: RE07/31/[address]: Dr. Malik Pollard MD : [id number] BED: DIS: 07/31/2022 SPEC #: [id number] RECD: 07/31/22 13:28 STATUS: MARY GUERRA #: [id number] MAYRA: 07/31/22 00:[address]: Malik Pollard DEPT: SURGICAL PATHOLOGY RECD BY: Sahil Jonas ENTERED: 07/31/22 13:28 SP TYPE: LIVER RES OTHR DR: Dr. Urbano Aranda MD Tissues: Liver, NOS Procedures: Surgery Specimen Level V HEADER OPERATION: Ultrasound-guided liver biopsy PRE-OP DIAGNOSIS: Liver mass TISSUE SUBMITTED: Liver mass MICROSCOPIC DIAGNOSIS Liver mass, CT-guided core biopsy: Non-small cell carcinoma, favor adenocarcinoma. See comment. ORQUIDEA:henrietta 08/01/2022 COMMENT Immunohistochemistry ([id number]) supports the above diagnosis. IHC profile is not conclusive for primary, however, it includes but not limited to upper gastrointestinal tract, pancreas, lung, or cholangiocarcinoma. Molecular studies on the tumor can be performed if clinically indicated. Please notify the laboratory if they are needed. Case has been reviewed in consultation with Dr. Shore who concurs with the above diagnosis. IDC:AM MICROSCOPIC DESCRIPTION Slides are reviewed. GROSS DESCRIPTION Received in fixative is one container labeled with the patient's name and designated liver. The specimen consists of two elongated fragments of castro soft tissue each measuring 2 cm in length and 0.1 cm in diameter. The specimen is totally submitted in one cassette. / ORQUIDEA:henrietta 07/31/2022 TC:0 CPT: 09222 ADDENDUM ADDENDUM ADDENDUM ADDENDUM ADDENDUM ADDENDUM ADDENDUM ADDENDUM ADDENDUM ADDENDUM ADDENDUM ADDENDUM ADDENDUM ADDENDUM ADDENDUM ADDENDUM ADDENDUM ADDENDUM ADDENDUM ADDENDUM ADDENDUM ADDENDUM 08/21/2022 07:30 ADDENDUM 08/21/2022 07:30 ADDENDUM 08/21/2022 07:30 ADDENDUM 08/21/2022 07:30 ADDENDUM 08/21/2022 07:30 PD-L1 (KEYTRUDA) IMMUNOHISTOCHEMICAL ANALYSIS FROM [facility] RESULTS: Tumor proportion score: 0% / Negative [facility] ADVANCED SOLID TUMOR NGS REPORT FROM [facility] RESULT SUMMARY: Abnormal IMMUNOTHERAPY BIOMARKERS: Tumor Mutation Elmore: Low (1.6 Mutations / MB) MICROSATELLITE INSTABILITY: MSI Negative PERTINENT NEGATIVE RESULTS: The following genes are NEGATIVE for clinically relevant mutations. Mutational hotspots and surrounding exonic regions were interrogated for DNA level point mutations and indels (fusions not assayed). AKT1, APC, ARID1A, VA, BRAF, BRCA1, BRCA2, CDH1, CDKN2A, CTNNB1, EGFR, EPCAM, ERBB2, ERBB4, FBXW7, FGFR1, FGFR2, FGFR3, GNA11, GNAQ, GNAS, HRAS, IDH1, IDH2, KDR, KIT, KRAS, MEN1, MET, MLH1, MSH2, MSH6, NOTCH1, PDGFRA, PIK3CA, PMS2, POLE, PTEN, PTPN11, RB1, RET, SMAD4, SMO, STK11, TERT, TP53, TSC1, TSC2, VHL Please see complete report in e-chart or EMR
[2022-07-31 10:29] LABS: Platelet Count 165 K/mm3 (150-450)
[2022-07-31 10:39] LABS: Prothrombin Time (Protime)PT. 12.9 SECONDS (11.7-14.9)
[2022-07-31 10:40] LABS: Partial Thromboplast Time 30.8 Seconds (24.1-36.2)
--- NOTE | 2022-07-31 10:45 | US_ITS ---
PROCEDURE: Ultrasound guided liver biopsy. DATE OF EXAMINATION: 07/31/2022 INDICATION: Male, 67 years old. Liver mass concerning for neoplasm. PHYSICIAN: Alejo Hay DO CONSENT: The risks, benefits and alternatives to the procedure were explained to the patient, and the patient agreed to the procedure and signed the consent. SEDATION: 1 mg of VERSED, 50 mcg of FENTANYL. Start time: 12:00 PM Stop time: 12:30 PM STERILE BARRIER TECHNIQUE: The following sterile barrier precautions were used during the procedure: hand hygiene; use of IODINE aseptic; use of a mask, sterile gloves, sterile full body drape, sterile ultrasound probe cover and sterile sheets. PROCEDURE/TECHNIQUE: (All elements of maximal sterile barrier technique followed, including US elements as applicable) The risks, benefits, and alternatives to the procedure were explained to patient, and the patient agreed to the procedure and signed a consent form for the procedure. A timeout was performed to confirm the patient''s identity, the type of procedure, to be performed and the site of entry. The mass in the right hepatic lobe (segment 6) was localized using ultrasound. An appropriate approach was selected and the skin surface was sterilely prepared using the usual sterile technique. 2-3 cc of local LIDOCAINE was injected superficially using a 25-gauge needle. Under ultrasound guidance, 6 to 7 cc of local LIDOCAINE was injected deeper to the level of the liver capsule using a 22-gauge spinal needle. Using ultrasound guidance, a 17-gauge introducer needle was placed into the right hepatic lobe mass. 2 18-gauge core samples were obtained using a corvacet biopsy needle. Core samples were placed in formalin and sent for pathology. Introducer needle was removed. Manual pressure was applied at the site of biopsy. Dressing was then applied. Immediate postoperative ultrasound assessment demonstrated no associated hemorrhage. The patient was then monitored by nursing for 2 hours in the recovery bay in stable condition. Ultrasound assessment was also performed 2 hours post biopsy with no associated hemorrhage. The patient was discharged home in stable condition with the appropriate discharge instructions. US/Liver Biopsy Ultrasound IMPRESSION: Successful ultrasound-guided biopsy of right hepatic lobe mass with 2 18-gauge core samples obtained and sent for pathology. Please see pathology report for final findings. Electronically Signed: Alejo Hay, at 15:30 EST ,
[2022-07-31] MEDS: Midazolam 2 MG/2 ML Syringe IV (12:00)
[2022-07-31] MEDS: Lidocaine 2% (20 ml mdv) 20 ML Vial INFILT (12:00)
[2022-07-31] MEDS: fentaNYL 100 MCG/2 ML Ampul IV ×2 (12:05→12:40)
== END 2022-07-31 23:59 | disposition home or self-care (01) ==
LOC: US 10:11 → CT 10:15
PROVIDERS: PCP Family Medicine Geriatric Medicine; Referring Provider Internal Medicine Medical Oncology; Visit Provider Internal Medicine Medical Oncology
DX: C22.9 Malignant neoplasm of liver, not specified as primary or secondary (principal); K76.89 Other specified diseases of liver
CPT/HCPCS: 47000; 36415; 76942; 85049; 85610; 85730; 88307; 88341; 88342; 99156; 99157; J7050; J2405

== ENCOUNTER → 2022-08-09 | Outpatient (CLI) | payer MEDICARE, SELFPAY ==
[2022-08-09 12:38] LABS: Albumin, Serum 3.2 g/dL (3.2-5.0); BUN 56 mg/dL (7-18); BUN/Creat Ratio 14.5 RATIO (10-20); Calcium,Total 8.9 mg/dL (8.5-10.1); Chloride 109 mmol/L (98-107); Creatinine, Serum 3.86 mg/dL (0.70-1.30); EST Glomerular Filtration Rate 17 mL/min (>60); Est Glom Filt Rate - Afr Amer 20 mL/min (>60); Glucose 145 mg/dL (74-106); Phosphorus 4.2 mg/dL (2.5-4.9); Potassium 4.1 mmol/L (3.5-5.1); Sodium Level 139 mmol/L (136-145)
[2022-08-09 12:40] LABS: Protein:Creat Ratio 2034 mg/g CRE (0-200)
[2022-08-09 13:02] LABS: PTHIN 248.8 pg/mL (18.4-80.1)
== END | disposition home or self-care (01) ==
LOC: LAB 11:39
PROVIDERS: PCP Family Medicine Geriatric Medicine; Referring Provider Internal Medicine Nephrology; Visit Provider Internal Medicine Nephrology
DX: N18.4 Chronic kidney disease, stage 4 (severe) (principal); E11.22 Type 2 diabetes mellitus with diabetic chronic kidney disease; N25.81 Secondary hyperparathyroidism of renal origin
CPT/HCPCS: 36415; 80069; 82570; 83970; 84156

== ENCOUNTER 2022-09-21 15:40 | Emergency (ER) | payer MEDICARE, SELFPAY ==
[2022-09-21] VITALS (14 sets, daily range): BP systolic 149–214; BP diastolic 59–157; PULSE 61–72; RESP 16–24; TEMP 35.8; O2SAT 93–100; BMI 38.4
--- NOTE | 2022-09-21 16:02 | RAD_ITS ---
INDICATION: pain/fall EXAMINATION/TECHNIQUE: X-RAY - XR Pelvis 1 or 2 Views COMPARISON: None. FINDINGS: PELVIC BONES: No displaced fracture, destructive or sclerotic lesions. Note that overlapping bowel shadows may however obscure fine detail. Sacroiliac joints are unremarkable. No widening of the pubic symphysis. HIPS: Stable appearance to right hip prosthesis. SOFT TISSUES: No soft tissue swelling or gas. RAD/Pelvis 1 or 2 Views IMPRESSION: Stable appearance to right hip prosthesis No evidence of displaced pelvic or hip fracture. Electronically Signed: Filemon Diaz MD at 17:42 EST ,
--- NOTE | 2022-09-21 16:10 | ED.VIS.LOWEX ---
HPI History of Present Illness Chief Complaint: Lower Extremity Injury Informant: patient and EMS Occured/Mechanism Mechanism/Context: Yes fall Onset/Context/Timing Onset: Today Context: Sudden Onset Timing: Continuous Quality of Pain: Aching Location: right thigh Current Severity: Severe Maximum Severity: Severe Worsened by: movement Relieved by: remaining still Associated Symptoms Associated Symptoms: Positive for Parasthesia (preexisting R foot, unchanged) and Loss of Funtion; Negative for Weakness Narrative Narrative: Patient is on hospice due to bone cancer, ambulatory at baseline, living at home. He states he turned while in his garage, twisting/pivoting, and felt a snap and immediate pain in his right thigh, followed by collapsing to the ground, he does not think he injured anything else. His left hip is sore but it was painful prior to this for the last 5 days or so. He did not hit his head. He denies any loss of consciousness. He laid on the floor for about 2.5 hours before EMS arrived to bring him to the hospital. He has a history of a total hip arthroplasty on the right side. [facility] Medical History (Updated 09/21/22 @ 19:[address] Daniel Shipley MD) Abdominal pain Arthritis Back pain Cellulitis of unspecified part of limb Chronic kidney disease Chronic kidney disease (CKD) stage G4/A3, severely decreased glomerular filtration rate (GFR) between 15-29 mL/min/1.73 square meter and albuminuria creatinine ratio greater than 300 mg/g Chronic kidney disease, stage 4 (severe) Closed fracture of right distal femur Depression Dietary restriction Edema, unspecified Former smoker History of diabetes mellitus History of diabetic neuropathy History of ED History of edema History of hypertension History of lymphedema History of pain when walking History of stress test Hyperlipidemia Insulin dependent diabetes mellitus 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 Leg cramps Localized swelling, mass and lump, trunk Loss of hearing Low back pain Low iron Major depressive disorder Marijuana use Muscle spasm of back Nephrotic syndrome with unspecified morphologic changes Other specified diseases of liver Restless legs Shortness of breath on exertion Trigeminal neuralgia Type 2 diabetes mellitus without complication Home Medications lisinopril 20 mg tablet (Zestril) 40 mg PO 1400 06/08/17 [History Last Taken 07/30/22 14:00] metoprolol tartrate 25 mg tablet 50 mg PO BID 06/08/17 [History Last Taken 07/31/22 08:00] atorvastatin 40 mg tablet 40 mg PO QHS 11/29/20 [History Last Taken 07/30/22 22:00] lidocaine 5 % topical patch 1 patch topical PRN PRN Pain 11/29/20 [History Last Taken Unknown] amlodipine 5 mg tablet 5 mg PO 1200 01/17/22 [History Last Taken Unknown] citalopram 20 mg tablet (Celexa) 20 mg PO DAILY 01/17/22 [History Last Taken 07/31/22 01:00] ergocalciferol (vitamin D2) 1,250 mcg (50,000 unit) capsule (Vitamin D2) 1,250 mcg PO QMONTH 01/17/22 [History Last Taken 07/30/22 08:00] insulin regular human 100 unit/mL injection solution (Novolin R Regular U-100 Insulin) 40 unit subcut BID 01/17/22 [History Last Taken Unknown] finerenone 10 mg tablet (Kerendia) 10 mg PO DAILY 07/24/22 [History Last Taken 07/31/22] Allergy/AdvReac Type Severity Reaction Status Date / Time No Known Allergies Allergy Verified 09/21/22 15:42 Family History Father Diabetes Heart disease Hypertension Kidney disease CAD (coronary artery disease) Surgical History History of umbilical hernia repair Hx of hand surgery S/P arteriovenous (AV) fistula creation S/P hip replacement S/P tonsillectomy Status post hip surgery Status post knee surgery Social History Smoking Status: Former smoker alcohol intake: never ROS ROS ED Constitutional Constitutional ED: Denies chills or fever(s) Eyes Eyes: Denies change in vision or diplopia ENT ENT ED: Denies ear pain, epistaxis, facial pain or rhinorrhea Cardiovascular Cardiovascular: Denies chest pain or palpitations Respiratory/Chest Respiratory/Chest: Denies cough or dyspnea Gastrointestinal Gastrointestinal: Denies abdominal pain, diarrhea, melena, nausea or vomiting Genitourinary Genitourinary ED: Denies dysuria or hematuria Musculoskeletal Musculoskeletal: Reports arthralgias and extremity pain; Denies back pain or neck pain Integumentary Denies abscess, Abrasions, laceration or rash Neurologic Neurologic: Reports paresthesias; Denies confusion, headache(s) or weakness EXAM Physical Exam Const Vital Signs: 09/21/22 15:43 09/21/22 17:12 09/21/22 17:14 Temperature 96.5 F L Temperature Source Temporal Pulse Rate 62 67 Pulse Rate [1 (Initial Baseline)] 66 Pulse Rate [2] 65 Pulse Rate [3] 62 Pulse Rate [4] 72 Pulse Rate [5] 71 Respiratory Rate 18 20 H Respiratory Rate [1 (Initial Baseline)] 20 H Respiratory Rate [2] 20 H Respiratory Rate [3] 20 H Respiratory Rate [4] 20 H Respiratory Rate [5] 20 H Blood Pressure 149/132 H 205/85 H Blood Pressure [1 (Initial Baseline)] 170/116 H Blood Pressure [2] 208/98 H Blood Pressure [3] 206/105 H Blood Pressure [4] 187/157 H Blood Pressure [5] 183/82 H Blood Pressure Mean 137 Pulse Ox 95 93 Oxygen Delivery Method Room Air Nasal Cannula Oxygen Delivery Method [1 (Initial Baseline)] Nasal Cannula Oxygen Delivery Method [2] Nasal Cannula Oxygen Delivery Method [3] Nasal Cannula Oxygen Delivery Method [4] Nasal Cannula Oxygen Delivery Method [5] Nasal Cannula Oxygen Flow Rate (L/min) [1 (Initial Baseline)] 2 Oxygen Flow Rate (L/min) [2] 4 Oxygen Flow Rate (L/min) [3] 4 Oxygen Flow Rate (L/min) [4] 4 Oxygen Flow Rate (L/min) [5] 4 09/21/22 17:48 09/21/22 18:15 09/21/22 19:00 Temperature Temperature Source Pulse Rate 64 64 Pulse Rate [1 (Initial Baseline)] Pulse Rate [2] Pulse Rate [3] Pulse Rate [4] Pulse Rate [5] Respiratory Rate 18 Respiratory Rate [1 (Initial Baseline)] Respiratory Rate [2] Respiratory Rate [3] Respiratory Rate [4] Respiratory Rate [5] Blood Pressure 205/105 H 214/66 H Blood Pressure [1 (Initial Baseline)] Blood Pressure [2] Blood Pressure [3] Blood Pressure [4] Blood Pressure [5] Blood Pressure Mean 138 115 Pulse Ox 98 Oxygen Delivery Method Nasal Cannula Room Air Oxygen Delivery Method [1 (Initial Baseline)] Oxygen Delivery Method [2] Oxygen Delivery Method [3] Oxygen Delivery Method [4] Oxygen Delivery Method [5] Oxygen Flow Rate (L/min) [1 (Initial Baseline)] Oxygen Flow Rate (L/min) [2] Oxygen Flow Rate (L/min) [3] Oxygen Flow Rate (L/min) [4] Oxygen Flow Rate (L/min) [5] 09/21/22 19:51 09/21/22 20:20 Temperature Temperature Source Pulse Rate 63 63 Pulse Rate [1 (Initial Baseline)] Pulse Rate [2] Pulse Rate [3] Pulse Rate [4] Pulse Rate [5] Respiratory Rate 16 Respiratory Rate [1 (Initial Baseline)] Respiratory Rate [2] Respiratory Rate [3] Respiratory Rate [4] Respiratory Rate [5] Blood Pressure 185/59 H 173/61 H Blood Pressure [1 (Initial Baseline)] Blood Pressure [2] Blood Pressure [3] Blood Pressure [4] Blood Pressure [5] Blood Pressure Mean 101 98 Pulse Ox 95 99 Oxygen Delivery Method Room Air Room Air Oxygen Delivery Method [1 (Initial Baseline)] Oxygen Delivery Method [2] Oxygen Delivery Method [3] Oxygen Delivery Method [4] Oxygen Delivery Method [5] Oxygen Flow Rate (L/min) [1 (Initial Baseline)] Oxygen Flow Rate (L/min) [2] Oxygen Flow Rate (L/min) [3] Oxygen Flow Rate (L/min) [4] Oxygen Flow Rate (L/min) [5] Positive well nourished and well developed Constitutional Narrative: Painful distress General Appearance ED: well developed HEENT Reports TM's clear and nasal mucous membranes and turbinates normal atraumatic Face and Sinus: Negative for facial tenderness Tympanic Membrane ED: Yes TM's clear Eyes PERRL and EOMs intact bilaterally Visual Acuity: other Other Details: no entrapment or pain with extraocular movements Neck full ROM and supple General: Negative for tenderness Chest Wall inspection of chest normal and palpation of chest normal Chest: symmetrical chest wall rise; Negative for crepitus or tenderness Resp normal respiratory effort and clear to auscultation bilaterally Percussion: other equal BS bilat Cardio no murmurs Rate: regular rate Rhythm: regular rhythm GI normal to inspection, nondistended, normoactive bowel sounds, soft to palpation and non-tender Back/Spine Cervical Spine: Negative for cervical spine tenderness Thoracic Spine / Upper Back: Negative for thoracic spinal tenderness Lumbar Spine / Lower Back: Negative for lumbar spinal tenderness Extremity Extremity Narrative: Deformity right thigh with swelling, compartments are soft. Very tender mid-distal right thigh. Deformity is external rotation. His feet are cold with symmetric 3-second cap refills bilaterally, he has symmetric chronic edema with stasis dermatitis in both lower legs and I cannot feel his dorsalis pedis pulses bilaterally due to the cold and swelling. There is pain in the left hip with thigh flexion, however he has painless internal and external rotation. Neuro oriented x3, CN's II-XII intact bilaterally, moves all extremities and no focal motor deficits Neuro Narrative: Patient is decreased sensation in the right foot, but his sensation is grossly intact [place] Coma Scale: document GCS findings Spontaneous Obeys Commands Oriented 15 Sensorium / Orientation: awake and alert Psych mental status grossly normal and thought process normal Skin no wounds Skin Narrative: intact skin RLE Lesions: no lesions Rashes: no rashes MDM MDM MDM Narrative Medical decision making narrative: Patient did not have any pain treatment prior to arrival here. We will place an IV and gave him fentanyl 100 mcg, I prepped him for procedural sedation, as I obtained portable films. Radiology was not able to obtain the films even after this medication because of the severity of his pain with any little movement. Therefore, we performed procedural sedation in order to get the x-rays, reduced the fracture which was done while getting the x-rays, and to splint him. Therefore no post reduction films were needed. X-rays confirm on my interpretation, 1 view of the pelvis negative, he does not have a hip dislocation, but he does have a mid femoral shaft fracture that is displaced on the right. No sign of pathologic fracture. He has a total hip arthroplasty on the right. This will complicate any ORIF. Discussed with Dr. Bob with orthopedics, he confirms that the patient will require transfer if he wants this fixed. I discussed at length with the patient, family members, hospice nurse. His renal failure is worsening, he was told that he will probably need dialysis, he really does not want that, he has a poor prognosis for a poorly differentiated metastatic adenocarcinoma which is why he is on hospice. We discussed the pros and cons of attempting surgery versus doing nothing, he will not be able to move that leg or move out of bed in my judgment if he does not have surgery. He was walking prior to this. The patient wants to have an evaluation to have this fixed so that he can walk. That will require transfer to a tertiary care center with a trauma orthopedic surgeon according to Dr. Bob, which I do not disagree with. He does not appear to have any other injuries and this was isolated, he laid on the floor for couple hours while he was waiting for help, he is not in rhabdomyolysis, the only issue is his worsening renal function which has been gradually worse. Able to find an available bed at [facility], accepted by internal medicine Dr. Carballo. Transfer center had discussed with orthopedics who is aware of the patient as well. Lab Data Attestation: I reviewed the patient's lab results. Labs: Laboratory Results - last 24 hr 09/21/22 09/21/22 15:55 15:55 WBC 8.7 RBC 4.51 L Hgb 12.0 L Hct 36.7 L MCV 81.4 MCH 26.6 L MCHC 32.7 RDW Std Deviation 42.9 RDW Coeff of Maxim 14.7 H Plt Count 169 MPV 9.1 Immature Gran % (Auto) 0.600 Neut % (Auto) 86.6 H Lymph % (Auto) 6.6 L [place] % (Auto) 5.9 Eos % (Auto) 0.1 Baso % (Auto) 0.2 Absolute Neuts (auto) 7.5 Absolute Lymphs (auto) 0.57 L Nucleated RBC % 0 Differential Comment SCANNED Sodium 136 Potassium 4.4 Chloride 105 Carbon Dioxide 23.0 Anion Gap 8 BUN 61 H Creatinine 4.31 H Estim Creat Clear Calc 15.21 Est GFR (MDRD) Af Amer 18 L Est GFR (MDRD) Non-Af 15 L BUN/Creatinine Ratio 14.2 Glucose 182 H Calcium 9.9 Total Creatine Kinase 62 Radiography Diagnostic Testing: Clinical Impression(s) from Imaging Studies Pelvis X-Ray 09/21/22 16:02 IMPRESSION: Stable appearance to right hip prosthesis No evidence of displaced pelvic or hip fracture. Electronically Signed: Filemon Diaz MD at 17:42 EST , Femur X-Ray 09/21/22 17:08 IMPRESSION: Acute mildly displaced fracture of the distal third of the femoral shaft Electronically Signed: Filemon Diaz MD at 17:43 EST , Chest X-Ray 09/21/22 19:04 IMPRESSION: Elevated right hemidiaphragm and minor basilar atelectasis No radiographic evidence of acute cardiopulmonary disease. Electronically Signed: Filemon Diaz MD at 19:14 EST , Procedures Lower Extremity Splints Lower Extremity Splint: Orthoglass and Long leg (Posterior and bilateral; neurovascularly intact distally after splinting) Splint Fabrication: Fabricated Location: Right Procedural Sedation 1 (Initial Baseline): Consent Signed: Yes Any Problems With Anesthesia: No You/Your family experience fever (hyperthermia) w/anesthesia: No Sedation medication: Propofol Dose: 140 Route: IV Total Moderate Sedation Units: 26 Mallampati Score: Class II ASA Classification: II Comment:: IV fluids going, patient on monitor, nasal cannula oxygen provided even prior to procedure starting. There were no complications, he was given an IV bolus of about 1 mg/kg initially, followed by another 40 mg, totaling 140 mg. He recovered uneventfully, was amnestic to the procedure, and was adequately sedated for what was necessary. Other Procedures Procedure(s): Closed reduction right femoral shaft fracture: Patient had delayed cap refill right foot. In order to obtain x-rays, I reduced and distracted the externally rotated displaced right femoral shaft fracture that was diagnosed on x-ray just after the reduction. He was splinted thereafter and no post reduction films were needed. Neurovascularly intact distally afterwards. Discharge Plan Triage Chief Complaint: Lower Extremity Injury ED Provider: Daniel Shipley Dx/Rx/DC Orders Clinical Impression: Closed displaced transverse fracture of shaft of right femur, Chronic kidney disease, stage 4 (severe), Metastatic adenocarcinoma Prescriptions: No Action Kerendia 10 mg tablet 10 mg PO DAILY lisinopril [Zestril] 20 MG tablet 40 mg PO 1400 metoprolol tartrate 25 MG tablet 50 mg PO BID atorvastatin 40 MG tablet 40 mg PO QHS lidocaine 1 PATCH patch 1 patch TOPICAL PRN PRN (Reason: Pain) amlodipine 5 mg Tablet 5 mg PO 1200 citalopram [Celexa] 20 mg Tablet 20 mg PO DAILY Novolin R Regular U-100 Insuln 100 unit/mL Solution 40 unit SUBCUT BID ergocalciferol (vitamin D2) [Vitamin D2] 1,250 mcg (50,000 unit) Capsule 1,250 mcg PO QMONTH Primary Care Provider: Urbano Aranda Chi Referrals: Urbano Aranda Chi, MD [Primary Care Provider] - Disposition Disposition: Acute Care Hospital Discharge Location: [facility]
[2022-09-21] MEDS: fentaNYL 100 MCG/2 ML Ampul IV (16:11)
[2022-09-21] MEDS: Ondansetron 4 MG/2 ML Vial IV (16:14)
[2022-09-21 16:22] LABS: Absolute Lymphocyte Count 0.57 X10^3/uL (0.83-4.51); Absolute Neutrophil Count 7.5 X10^3/uL (2.0-7.7); Basophil# 0.02 X10^3/uL; Basophil% 0.2 % (0-1); Eosinophil# 0.01 X10^3/uL; Eosinophils% 0.1 % (0-5); Hematocrit 36.7 % (40-54); Lymphocyte # 0.57 X10^3/ul (0.83-4.51); Lymphocyte % 6.6 % (19-41); Mean Corp Hgb Conc 32.7 g/dL (32-36); Mean Corpuscular Hgb 26.6 pg (27.0-32.0); Mean Corpuscular Volume 81.4 fL (80-94); Mean Platelet Vol. 9.1 fl (6.2-12.0); Monocyte# 0.51 X10^3/uL; Monocyte% 5.9 % (0-10); NRBC Flagged by Analyzer 0 % (0-5); Neutrophil % 86.6 % (47-70); POSITIVE DIFFERENTIAL YES; Platelet Count 169 K/mm3 (150-450); RBC Distribution Width CV 14.7 % (11.6-14.6); RBC Distribution Width SD 42.9 fl (35.1-43.9); Red Blood Count 4.51 M/mm3 (4.6-6.2); White Blood Count 8.7 K/mm3 (4.4-11.0)
[2022-09-21 16:27] LABS: Differential Indicated SCAN CRITERIA MET
[2022-09-21 16:41] LABS: Anion Gap 8 (5-15); BUN 61 mg/dL (7-18); BUN/Creat Ratio 14.2 RATIO (10-20); CPK Total, Creatine Kinase 62 U/L (39-308); Calcium,Total 9.9 mg/dL (8.5-10.1); Chloride 105 mmol/L (98-107); Creatinine, Serum 4.31 mg/dL (0.70-1.30); EST Glomerular Filtration Rate 15 mL/min (>60); Est Glom Filt Rate - Afr Amer 18 mL/min (>60); Estimated Creatinine Clearance 15.21 ml/min; Glucose 182 mg/dL (74-106); Potassium 4.4 mmol/L (3.5-5.1); Sodium Level 136 mmol/L (136-145)
[2022-09-21 16:55] LABS: Differential Comment SCANNED
--- NOTE | 2022-09-21 17:08 | RAD_ITS ---
INDICATION: pain/injury EXAMINATION/TECHNIQUE: X-RAY - RIGHT XR Femur Min 2 Views 4 VIEWS COMPARISON: None. FINDINGS: SOFT TISSUES: No soft tissue swelling or gas. No radiopaque foreign body. BONES/JOINTS: There is an acute obliquely oriented fracture through the distal third of the femoral shaft with mild overlapping and lateral displacement of the distal fracture fragment.. Normal alignment. Preservation of the joint space.. No sclerotic or destructive changes observed. RAD/Femur Min 2 Views IMPRESSION: Acute mildly displaced fracture of the distal third of the femoral shaft Electronically Signed: Filemon Diaz MD at 17:43 EST ,
[2022-09-21] MEDS: 0.9% Normal Saline 1,000 ML 150 ML IV (17:42)
[2022-09-21] MEDS: Propofol 200 MG/20 ML Vial IV BOLUS (17:42)
--- NOTE | 2022-09-21 17:44 | CON.PCM.OR_ITS ---
HPI Consult Data Date of Consult: 09/21/22 HPI Narrative HPI Narrative: LUCIE PEREZ, is a 67 M who presents for right distal femur fracture, in setting of metastatic poorly differentiated adenoCA and proximal total hip arthroplasty. He is from hospice. [facility] Medical History (Updated 09/21/22 @ 17:47 by Zeus Bob MD) Abdominal pain Arthritis Back pain Cellulitis of unspecified part of limb Chronic kidney disease Chronic kidney disease (CKD) stage G4/A3, severely decreased glomerular filtration rate (GFR) between 15-29 mL/min/1.73 square meter and albuminuria creatinine ratio greater than 300 mg/g Chronic kidney disease, stage 4 (severe) Closed fracture of right distal femur Depression Dietary restriction Edema, unspecified Former smoker History of diabetes mellitus History of diabetic neuropathy History of ED History of edema History of hypertension History of lymphedema History of pain when walking History of stress test Hyperlipidemia Insulin dependent diabetes mellitus 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 Leg cramps Localized swelling, mass and lump, trunk Loss of hearing Low back pain Low iron Major depressive disorder Marijuana use Muscle spasm of back Nephrotic syndrome with unspecified morphologic changes Other specified diseases of liver Restless legs Shortness of breath on exertion Trigeminal neuralgia Type 2 diabetes mellitus without complication Home Medications lisinopril 20 mg tablet (Zestril) 40 mg PO 1400 06/08/17 [History Last Taken 07/30/22 14:00] metoprolol tartrate 25 mg tablet 50 mg PO BID 06/08/17 [History Last Taken 07/31/22 08:00] atorvastatin 40 mg tablet 40 mg PO QHS 11/29/20 [History Last Taken 07/30/22 22:00] lidocaine 5 % topical patch 1 patch topical PRN PRN Pain 11/29/20 [History Last Taken Unknown] amlodipine 5 mg tablet 5 mg PO 1200 01/17/22 [History Last Taken Unknown] citalopram 20 mg tablet (Celexa) 20 mg PO DAILY 01/17/22 [History Last Taken 07/31/22 01:00] ergocalciferol (vitamin D2) 1,250 mcg (50,000 unit) capsule (Vitamin D2) 1,250 mcg PO QMONTH 01/17/22 [History Last Taken 07/30/22 08:00] insulin regular human 100 unit/mL injection solution (Novolin R Regular U-100 Insulin) 40 unit subcut BID 01/17/22 [History Last Taken Unknown] finerenone 10 mg tablet (Kerendia) 10 mg PO DAILY 07/24/22 [History Last Taken 07/31/22] Allergy/AdvReac Type Severity Reaction Status Date / Time No Known Allergies Allergy Verified 09/21/22 15:42 Family History Father Diabetes Heart disease Hypertension Kidney disease CAD (coronary artery disease) Surgical History History of umbilical hernia repair Hx of hand surgery S/P arteriovenous (AV) fistula creation S/P hip replacement S/P tonsillectomy Status post hip surgery Status post knee surgery Social History Smoking Status: Former smoker alcohol intake: never Vital Signs Vital Signs Vital Signs: 09/21/22 15:43 09/21/22 17:12 09/21/22 17:14 Temperature 96.5 F L Temperature Source Temporal Pulse Rate 62 67 Pulse Rate [1 (Initial Baseline)] 66 Pulse Rate [2] 65 Pulse Rate [3] 62 Pulse Rate [4] 72 Pulse Rate [5] 71 Respiratory Rate 18 20 H Respiratory Rate [1 (Initial Baseline)] 20 H Respiratory Rate [2] 20 H Respiratory Rate [3] 20 H Respiratory Rate [4] 20 H Respiratory Rate [5] 20 H Blood Pressure 149/132 H 205/85 H Blood Pressure [1 (Initial Baseline)] 170/116 H Blood Pressure [2] 208/98 H Blood Pressure [3] 206/105 H Blood Pressure [4] 187/157 H Blood Pressure [5] 183/82 H Blood Pressure Mean 137 Pulse Ox 95 93 Oxygen Delivery Method Room Air Nasal Cannula Oxygen Delivery Method [1 (Initial Baseline)] Nasal Cannula Oxygen Delivery Method [2] Nasal Cannula Oxygen Delivery Method [3] Nasal Cannula Oxygen Delivery Method [4] Nasal Cannula Oxygen Delivery Method [5] Nasal Cannula Oxygen Flow Rate (L/min) [1 (Initial Baseline)] 2 Oxygen Flow Rate (L/min) [2] 4 Oxygen Flow Rate (L/min) [3] 4 Oxygen Flow Rate (L/min) [4] 4 Oxygen Flow Rate (L/min) [5] 4 Weight Weight: 237 lb 14.06 oz Body Mass Index (BMI) 38.4 Physical Exam Narrative not asked to personally evaluate by ED physician. no concerns for compromise NV status. Lab / Micro Data Result Diagrams: 09/21/22 15:55 09/21/22 15:55 Labs: Laboratory Results - last 24 hr 09/21/22 15:55: WBC 8.7, RBC 4.51 L, Hgb 12.0 L, Hct 36.7 L, MCV 81.4, MCH 26.6 L, MCHC 32.7, RDW Std Deviation 42.9, RDW Coeff of Maxim 14.7 H, Plt Count 169, MPV 9.1, Immature Gran % (Auto) 0.600, Neut % (Auto) 86.6 H, Lymph % (Auto) 6.6 L, [place] % (Auto) 5.9, Eos % (Auto) 0.1, Baso % (Auto) 0.2, Absolute Neuts (auto) 7.5, Absolute Lymphs (auto) 0.57 L, Nucleated RBC % 0, Differential Comment SCANNED 09/21/22 15:55: Sodium 136, Potassium 4.4, Chloride 105, Carbon Dioxide 23.0, Anion Gap 8, BUN 61 H, Creatinine 4.31 H, Estim Creat Clear Calc 15.21, Est GFR (MDRD) Af Amer 18 L, Est GFR (MDRD) Non-Af 15 L, BUN/Creatinine Ratio 14.2, Glucose 182 H, Calcium 9.9, Total Creatine Kinase 62 Radiology Impression Pelvis X-Ray 09/21/22 16:02 IMPRESSION: Stable appearance to right hip prosthesis No evidence of displaced pelvic or hip fracture. Electronically Signed: Filemon Diaz MD at 17:42 EST , Distal femur fracture. Assessment & Plan Assessment/Plan (1) Closed fracture of right distal femur: PLAN: 67 male right distal femur likely pathologic fracture in setting of metastatic adenoCA and proximal total hip. Best course would be surgery to fix and palliate the patient, however, would be beyond my scope of practice and available resources, so would recommend larger center for this patient. Available to discuss with the patient or ED physician if needed.
[2022-09-21] MEDS: Morphine 4 MG/ML Syringe IV (17:47)
--- NOTE | 2022-09-21 17:54 | ED.RN ---
FAMILY AND PT EXPRESSING CONCERNS ABOUT PLAN OF CARE. DR EVAGNELISTA TO TALK WITH FAMILY AND COLLABORATE
--- NOTE | 2022-09-21 19:04 | RAD_ITS ---
INDICATION: fall EXAMINATION/TECHNIQUE: X-RAY - XR Chest 1 View COMPARISON: January 26, 2022 FINDINGS: LINES/DEVICES: None. LUNGS: Elevated right hemidiaphragm and mild basilar atelectasis. No pleural effusion. No pneumothorax. MEDIASTINUM AND CARDIOVASCULAR STRUCTURES: Cardiac silhouette not enlarged. Central airways and mediastinal contour are unremarkable. BONES AND SOFT TISSUES: Unremarkable. RAD/Chest 1 View (Portable) IMPRESSION: Elevated right hemidiaphragm and minor basilar atelectasis No radiographic evidence of acute cardiopulmonary disease. Electronically Signed: Filemon Diaz MD at 19:14 EST ,
--- NOTE | 2022-09-21 19:33 | ED.RN ---
[facility] CALLS FOR REPORT REGARDING SPEAKING WITH ORTHO OR TRAUMA TRANSFER, SPOKE WITH PRINCE WITH HISTORY. SHE WILL CONSULT ORTHO AND CALL BACK WITH DECISION ON TRANSFER.
[2022-09-21] MEDS: HYDROmorphone 1 MG/ML Syringe IV (19:48)
[2022-09-21] MEDS: Lisinopril 40 MG Tablet PO (19:48)
--- NOTE | 2022-09-21 21:01 | ED.RN ---
DR. GOMES, ACCEPTING DR FERNÁNDEZ. BED 5250 AT [facility], REPORT [phone]
--- NOTE | 2022-09-21 23:18 | NURSING ---
CALLED FOR SQUAD AT 2116 GIVEN A 3-4 ETA PHYSICIANS
[2022-09-22 00:03] VITALS: BP 149/99; PULSE 65; RESP 16; O2SAT 100
[2022-09-22 02:10] VITALS: BP 170/49; PULSE 64; RESP 15; O2SAT 99
[2022-09-22] MEDS: HYDROmorphone 1 MG/ML Syringe IV (02:45)
== END 2022-09-22 03:05 | disposition short-term general hospital (02) ==
PROVIDERS: Emergency Provider Emergency Medicine; PCP Family Medicine Geriatric Medicine; Visit Provider Emergency Medicine
DX: S72.321A Displaced transverse fracture of shaft of right femur, initial encounter for closed fracture (principal); N18.4 Chronic kidney disease, stage 4 (severe); Z96.641 Presence of right artificial hip joint; Z87.891 Personal history of nicotine dependence; W19.XXXA Unspecified fall, initial encounter
CPT/HCPCS: 71045; 72170; 73552; 80048; 82550; 85025; 96374; 96375; 96376; 99152; 99285; J7030; A4216; J2405

== ENCOUNTER 2022-09-30 20:29 | Inpatient (IN) | payer MEDICARE, SELFPAY ==
[2022-09-30 20:52] VITALS: BP 159/71; PULSE 72; RESP 17; TEMP 36.3; O2SAT 93; BMI 35.8
--- NOTE | 2022-09-30 21:19 | PCM.HP.STD ---
[facility] - General General Date of Admission: 09/30/22 Date of Service: 10/02/22 Chief Complaint: Here for rehab. HPI Narrative LUCIE PEREZ, is a 67 Male who presents with followin09/21/2022 Patient presented to [facility] with fall. On hospice for metastatic adenocarcinoma, unknown primary. Fell in garage, right thigh pain. Fentanyl IV given. X-ray shows right mid femoral shaft fracture. Transfer to [facility]. 09/22/2022 Admit to [facility]. Cycle troponin for elevated troponin. Orthopedics performed intramedullary nail fixation for pathologic right femur fracture. 09/28/2022 Confused, secondary to narcotic pain medications. 09/30/2022 Admit to TCU with debility, here for rehabilitation, strengthening, prior to discharge home with hospice. [facility] Medical History Abdominal pain Arthritis Back pain Cellulitis of unspecified part of limb Chronic kidney disease Chronic kidney disease (CKD) stage G4/A3, severely decreased glomerular filtration rate (GFR) between 15-29 mL/min/1.73 square meter and albuminuria creatinine ratio greater than 300 mg/g Chronic kidney disease, stage 4 (severe) Closed fracture of right distal femur Depression Dietary restriction Edema, unspecified Former smoker History of diabetes mellitus History of diabetic neuropathy History of ED History of edema History of hypertension History of lymphedema History of pain when walking History of stress test Hyperlipidemia Insulin dependent diabetes mellitus 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 Leg cramps Localized swelling, mass and lump, trunk Loss of hearing Low back pain Low iron Major depressive disorder Marijuana use Muscle spasm of back Nephrotic syndrome with unspecified morphologic changes Other specified diseases of liver Restless legs Shortness of breath on exertion Trigeminal neuralgia Type 2 diabetes mellitus without complication Home Medications lisinopril 20 mg tablet (Zestril) 40 mg PO 1400 06/08/17 [History Last Taken 07/30/22 14:00] metoprolol tartrate 25 mg tablet 50 mg PO BID 06/08/17 [History Last Taken 07/31/22 08:00] atorvastatin 40 mg tablet 40 mg PO QHS 11/29/20 [History Last Taken 07/30/22 22:00] lidocaine 5 % topical patch 1 patch topical PRN PRN Pain 11/29/20 [History Last Taken Unknown] amlodipine 5 mg tablet 5 mg PO 1200 01/17/22 [History Last Taken Unknown] citalopram 20 mg tablet (Celexa) 20 mg PO DAILY 01/17/22 [History Last Taken 07/31/22 01:00] ergocalciferol (vitamin D2) 1,250 mcg (50,000 unit) capsule (Vitamin D2) 1,250 mcg PO QMONTH 01/17/22 [History Last Taken 07/30/22 08:00] insulin regular human 100 unit/mL injection solution (Novolin R Regular U-100 Insulin) 40 unit subcut BID 01/17/22 [History Last Taken Unknown] finerenone 10 mg tablet (Kerendia) 10 mg PO DAILY 07/24/22 [History Last Taken 07/31/22] Allergy/AdvReac Type Severity Reaction Status Date / Time No Known Allergies Allergy Verified 09/21/22 15:42 Family History Father Diabetes Heart disease Hypertension Kidney disease CAD (coronary artery disease) Surgical History History of umbilical hernia repair Hx of hand surgery S/P arteriovenous (AV) fistula creation S/P hip replacement S/P tonsillectomy Status post hip surgery Status post knee surgery Social History (Updated 09/30/22 @ 21:[address] Urbano Aranda MD) household members: none Smoking Status: Former smoker alcohol intake: never substance use type: does not use ROS Constitutional Constitutional: Denies chills, fever(s) or weight gain ENT HEENT: Denies headache(s), nasal congestion or nasal discharge Cardiovascular Cardiovascular: Denies chest pain or palpitations Respiratory/Chest Respiratory/Chest: Denies cough, excessive phlegm production or shortness of breath with exertion Gastrointestinal Gastrointestinal: Denies abdominal pain, nausea or vomiting Genitourinary Genitourinary: Denies dysuria Musculoskeletal Musculoskeletal: Denies joint pain or joint swelling Integumentary Integumentary: Denies rash or wounds Neurologic Neurologic: Denies focal weakness, numbness or tingling Psychiatric Psychiatric: Denies anxiety, auditory hallucinations, depression, homicidal ideation or suicidal ideation Vital Signs Vital Signs Vital Signs: 09/30/22 20:52 Temperature 97.3 F L Temperature Source Temporal Pulse Rate 72 Respiratory Rate 17 Blood Pressure 159/17 H Blood Pressure Mean 64 Blood Pressure Source Monitor Blood Pressure Position Semi-Fowlers Blood Pressure Location Right Arm Pulse Ox 93 Oxygen Delivery Method Room Air Physical Exam Const alert General Appearance: cooperative HEENT normocephalic Eyes PERRL and EOMs intact bilaterally Neck supple, no JVD and no carotid bruits Resp normal respiratory effort, normal air movement and clear to auscultation bilaterally Cardio regular rate and regular rhythm GI normal to inspection, nondistended, normoactive bowel sounds, non-tender and non-distended Extremity normal capillary refill General Extremity: Negative for edema Skin no rashes or lesions noted General Skin Exam: no breakdown Psych affect normal Appearance: appropriate Results Lab / Micro Data Result Diagrams: 10/01/22 03:40 10/01/22 03:40 Assessment & Plan Assessment/Plan (1) Debility: (2) Closed fracture of right distal femur: (3) Metastatic adenocarcinoma: (4) Diabetes mellitus: (5) Hypertension: (6) Hyperlipidemia: (7) Depression: (8) Chronic kidney disease, stage 4 (severe): (9) Nephrotic syndrome: PLAN: Plan 67 year old male with below past medical history significant for metastatic adenocarcinoma, hospitalized for right distal femur fracture, underwent intramedullary nail fixation pathologic right femur fracture, admitted to TCU with debility, here for rehabilitation, strengthening, prior to discharge home with hospice. Debility - PT/OT. Cognition - ST. Pain - Tylenol 1000mg q6h prn pain (1-3), Tramadol 50mg q6h prn pain (4-5), Oxycodone 5mg q4h prn pain (6-10). Bowel - Miralax 17gm daily, senna/colace 2 tablets bid, Dulcolax 10mg pr x 1 prn, MOM 30ml po x 1 prn. Adult immunization - Administer pneumonia vaccine, covid19 vaccine, flu vaccine as appropriate. DVT prophylaxis - Hold, pending labs. Herpes Simplex - Acyclovir 800mg tid prn. Depression - Citalopram 20mg daily, stable chronic long-term use, GDR not recommended. Hypertension - Metoprolol 50mg bid, Lisinopril 40mg daily, HCTZ 12.5mg daily, Amlodipine 10mg daliy, Hydralazine 50mg ticcm. Diabetes Mellitus II - monitor blood sugars.
[2022-09-30 21:45] LABS: Bedside Glucose 99 mg/dL (74-106)
[2022-09-30] MEDS: Acetaminophen 500 MG Tablet 1000 MG PO (22:53)
[2022-09-30] MEDS: oxyCODONE 5 MG Tablet PO (22:54)
[2022-09-30 22:55] VITALS: BP 125/62; PULSE 78
[2022-09-30] MEDS: hydrALAZINE 50 MG Tablet PO (22:55)
[2022-09-30] MEDS: Senna/Docusate Sodium 1 Tablet 2 TABLET PO (22:55)
[2022-10-01 04:08] LABS: Absolute Lymphocyte Count 1.05 X10^3/uL (0.83-4.51); Absolute Neutrophil Count 6.4 X10^3/uL (2.0-7.7); Basophil# 0.01 X10^3/uL; Basophil% 0.1 % (0-1); Eosinophil# 0.12 X10^3/uL; Eosinophils% 1.4 % (0-5); Hematocrit 28.5 % (40-54); Hemoglobin 8.9 g/dL (13.0-16.5); Lymphocyte # 1.05 X10^3/ul (0.83-4.51); Lymphocyte % 12.7 % (19-41); Mean Corp Hgb Conc 31.2 g/dL (32-36); Mean Corpuscular Hgb 25.8 pg (27.0-32.0); Mean Corpuscular Volume 82.6 fL (80-94); Mean Platelet Vol. 9.4 fl (6.2-12.0); Monocyte# 0.69 X10^3/uL; Monocyte% 8.3 % (0-10); NRBC Flagged by Analyzer 0 % (0-5); Neutrophil # 6.35 X10^3/uL (2.7-7.7); Neutrophil % 76.8 % (47-70); Platelet Count 190 K/mm3 (150-450); RBC Distribution Width SD 43.9 fl (35.1-43.9); Red Blood Count 3.45 M/mm3 (4.6-6.2); White Blood Count 8.3 K/mm3 (4.4-11.0)
[2022-10-01 04:35] LABS: Anion Gap 10 (5-15); BUN 65 mg/dL (7-18); Calcium,Total 10.3 mg/dL (8.5-10.1); Chloride 107 mmol/L (98-107); Creatinine, Serum 3.42 mg/dL (0.70-1.30); EST Glomerular Filtration Rate 19 mL/min (>60); Est Glom Filt Rate - Afr Amer 23 mL/min (>60); Estimated Creatinine Clearance 19.17 ml/min; Glucose 91 mg/dL (74-106); Sodium Level 140 mmol/L (136-145)
[2022-10-01] MEDS: Polyethylene Glycol 3350 17 GM PACKET PO (06:03)
[2022-10-01 06:04] VITALS: BP 146/82; PULSE 94
[2022-10-01] MEDS: Metoprolol Tartrate 50 MG Tablet PO ×2 (06:04→18:05)
[2022-10-01] MEDS: amLODIPine 10 MG Tablet PO (06:04)
[2022-10-01] MEDS: Senna/Docusate Sodium 1 Tablet 2 TABLET PO ×2 (06:04→18:04)
[2022-10-01] MEDS: Citalopram 20 MG Tablet PO (06:05)
[2022-10-01] MEDS: hydroCHLOROthiazide 12.5mg 12.5 MG PO (06:05)
[2022-10-01] MEDS: Menthol/Lanolin/Calamine/Znox 113 GM Tube 1 APPLIC TOPICAL ×2 (06:05→18:04)
[2022-10-01] MEDS: Lisinopril 40 MG Tablet PO (06:06)
[2022-10-01] MEDS: Magnesium Hydroxide 30 ML UDC PO (06:13)
[2022-10-01 06:45] LABS: Bedside Glucose 101 mg/dL (74-106)
[2022-10-01 09:22] VITALS: BP 146/82; PULSE 94
[2022-10-01] MEDS: hydrALAZINE 50 MG Tablet PO ×3 (09:22→18:03)
[2022-10-01] MEDS: Tuberculin,Purif.prot.deriv. 50 TU/ML Vial 0.1 ML ID (10:41)
[2022-10-01] MEDS: oxyCODONE 5 MG Tablet PO ×2 (10:41→15:17)
[2022-10-01 11:21] LABS: Bedside Glucose 165 mg/dL (74-106)
[2022-10-01 12:47] VITALS: BP 139/47; PULSE 72
[2022-10-01] MEDS: traMADol 50 MG Tablet PO ×2 (12:50→20:23)
[2022-10-01 15:26] VITALS: BP 138/68; PULSE 72; RESP 18; TEMP 36.8; O2SAT 92
[2022-10-01 16:35] LABS: Bedside Glucose 137 mg/dL (74-106)
[2022-10-01 18:03] VITALS: BP 138/68; PULSE 72
[2022-10-01 18:05] VITALS: BP 138/68; PULSE 72
[2022-10-01] MEDS: Acetaminophen 500 MG Tablet 1000 MG PO (18:07)
[2022-10-01 21:35] LABS: Bedside Glucose 141 mg/dL (74-106)
[2022-10-02] VITALS (9 sets, daily range): BP systolic 142–194; BP diastolic 70–77; PULSE 64–73; RESP 18–19; TEMP 36.1; O2SAT 93–95
[2022-10-02] MEDS: Acetaminophen 500 MG Tablet 1000 MG PO ×2 (01:02→08:46)
[2022-10-02] MEDS: oxyCODONE 5 MG Tablet PO ×2 (01:03→20:50)
--- NOTE | 2022-10-02 03:57 | NURSING ---
Late entry for 09/30 at 2140: Paged Dr. Aranda. Return phone call received within minutes. Updated on clarification needed for insulin orders as pt is ordered Apidra and Humulin R insulins which will convert to Humalog per therapeutic interchange. Also noted new order for Lantus 60 units to start this evening. Question pt's po intake. Blood sugar obtained this hs per FLORICULTURE TEACHER at 99. Dr. Aranda notes he will review pt's current dose as he is the pt's primary care provider and will enter the insulin orders. Also informed this nurse had not entered order for Kerendia and Vitamin D due to non-formulary and dosing issues, respectively. Per Dr. Medrano, discontinue Kerendia and Vitamin D. Phone call placed to pharmacy and updated the pharmacist, Tj.
[2022-10-02] MEDS: Menthol/Lanolin/Calamine/Znox 113 GM Tube 1 APPLIC TOPICAL ×2 (05:30→17:51)
[2022-10-02] MEDS: Polyethylene Glycol 3350 17 GM PACKET PO (05:31)
[2022-10-02] MEDS: Metoprolol Tartrate 50 MG Tablet PO ×2 (05:31→17:52)
[2022-10-02] MEDS: amLODIPine 10 MG Tablet PO (05:32)
[2022-10-02] MEDS: Citalopram 20 MG Tablet PO (05:32)
[2022-10-02] MEDS: hydroCHLOROthiazide 12.5mg 12.5 MG PO (05:32)
[2022-10-02] MEDS: Senna/Docusate Sodium 1 Tablet 2 TABLET PO ×2 (05:33→17:52)
[2022-10-02] MEDS: Lisinopril 40 MG Tablet PO (05:33)
--- NOTE | 2022-10-02 05:38 | NURSING ---
BP elevated- refer to vital signs. Denies any c/o and states, I feel fine. Resting comfortably in bed w/ eyes closed and answers questions asked per this nurse. BP meds administered per orders and noted on NOV. Will continue to monitor.
[2022-10-02 06:45] LABS: Bedside Glucose 122 mg/dL (74-106)
[2022-10-02] MEDS: hydrALAZINE 50 MG Tablet PO ×3 (08:46→17:53)
--- NOTE | 2022-10-02 10:11 | NURSING ---
PT COMPLAINED OF FEELING SOB. ASSESSMENT DONE,LUNGS CLEAR. O2 90-91% DROPS WHEN PT TALKS OR MOVES TO 89%. 1L APPLIED 02 NOW 93-94%. PT STATED HE FELT BETTER. WILL CONTINUE TO MONITOR. MADE PT ALSO A Q2 TURN. RN AWARE
--- NOTE | 2022-10-02 10:11 | NURSING ---
Significant other aware that patient has agreed to receive the covid booster while here and order has been placed.
--- NOTE | 2022-10-02 10:37 | NURSING ---
[employer]lectric[employer] Note; Activity Asset: Complete Adam is independent in his choice of daily activities. Adam will read the newspaper, talk on his smartphone and read his emails from it. He watches tv and visits w/family. Adam stated he is not interested in word puzzles.
--- NOTE | 2022-10-02 12:00 | CASEMGMT ---
Social Work Met with patient to complete initial assessment. Introduced self and role. Verified/updated contacts. Educated to [facility] insurance with [employer] 10/05 and continued stay is not guaranteed with each review. Pt admitted from home, previously on [facility]. Pt's goal is to get stronger and return home alone with hospice. Discussed code status and MOLST. Pt did confirm wishes to be full code during stay. MOLST placed in Dr folder. Pt agreed to have sister bring in copy of advanced directives. SW provided emotional support for cancer diagnosis and offered ongoing supportive visits as needed. SW to continue to follow. Stefanie Littlejohn, PAOLO PROFILE SAW OPERATOR
--- NOTE | 2022-10-02 15:07 | PCM.PN.DRR ---
TCU RX Drug Regimen Review Subjective: 67 YOM admitted to TCU from outside facility S/P right femur repair. Admitted to TCU for rehabilitation prior to discharge home. Once home, pt will be on hospice (Of note, was on hospice services prior to hospital admission per H/P). Objective: Allergies No Known Allergies Allergy (Verified 09/21/22 15:42) Current Medications Generic Name Dose Route Start Last Admin Trade Name Freq PRN Reason Stop Dose Admin Acetaminophen 1,000 mg 09/30/22 21:47 10/02/22 08:46 Acetaminophen 500 Mg Tablet PO 1,000 mg Q6H PRN PRN Administration Pain Score 1-3 Acyclovir 800 mg 09/30/22 21:17 Acyclovir 800 Mg Tablet PO TID PRN outbreaks Amlodipine Besylate 10 mg 10/01/22 06:00 10/02/22 05:32 Amlodipine 10 Mg Tablet PO 10 mg DAILY OSIEL Administration Bisacodyl 10 mg 09/30/22 21:44 Bisacodyl 10 Mg Suppository RC X1 PRN Constipation COVID-19 Vaccine mRNA LNP-S (MOD) (PF) 50 mcg 10/03/22 11:00 Covid-19 Bv Moderna Booster 50 Mcg/0.5 Ml Syringe IM 10/03/22 11:01 .ONCE ONE Calamine/Phenol 1 applic 10/01/22 06:00 10/02/22 05:30 Menthol/Lanolin/Calamine/Znox 113 Gm Tube TOPICAL 1 applic BID OSIEL Administration Protocol Citalopram Hydrobromide 20 mg 10/01/22 06:00 10/02/22 05:32 Citalopram 20 Mg Tablet PO 20 mg DAILY OSIEL Administration Hydralazine HCl 50 mg 09/30/22 22:00 10/02/22 13:42 Hydralazine 50 Mg Tablet PO 50 mg TIDCM OSIEL Administration Hydrochlorothiazide 12.5 mg 10/01/22 06:00 10/02/22 05:32 Hydrochlorothiazide 12.5mg PO 12.5 mg DAILY OSIEL Administration Lidocaine 1 patch 09/30/22 21:21 Lidocaine 5% Patch TOPICAL DAILY PRN Pain Score 1-10 Protocol Lisinopril 40 mg 10/01/22 06:00 10/02/22 05:33 Lisinopril 40 Mg Tablet PO 40 mg DAILY OSIEL Administration Magnesium Hydroxide 30 ml 09/30/22 21:44 10/01/22 06:13 Magnesium Hydroxide 30 Ml Udc PO 30 ml X1 PRN Administration Constipation Metoprolol Tartrate 50 mg 10/01/22 06:00 10/02/22 05:31 Metoprolol Tartrate 50 Mg Tablet PO 50 mg BID OSIEL Administration Nutritional Formula (Lactose Free) 120 ml 10/02/22 17:00 Ensure Plus High Protein 120 Ml Liquid PO 4X/DAY OSIEL Oxycodone HCl 5 mg 09/30/22 21:16 10/02/22 01:03 Oxycodone 5 Mg Tablet PO 5 mg Q4H PRN PRN Administration Pain Score 6-10 Polyethylene Glycol 17 gm 10/01/22 06:00 10/02/22 05:31 Polyethylene Glycol 3350 17 Gm Packet PO 17 gm DAILY OSIEL Administration Senna/Docusate Sodium 2 tablet 09/30/22 21:30 10/02/22 05:33 Senna/Docusate Sodium 1 Tablet PO 2 tablet BID OSIEL Administration Tramadol HCl 50 mg 09/30/22 21:44 10/01/22 20:23 Tramadol 50 Mg Tablet PO 50 mg Q6H PRN PRN Administration Pain Score 4-5 Tuberculin PPD 0.1 ml 10/08/22 10:00 Tuberculin,Purif.Prot.Deriv. 50 Tu/Ml Vial ID 10/08/22 10:01 X1 ONE Problem List (Last Reviewed 09/30/22 @ 21:[address] Urbano Aranda MD) Nephrotic syndrome (Acute) Chronic kidney disease, stage 4 (severe) (Chronic) Depression (Acute) Hyperlipidemia (Acute) Hypertension (Chronic) Diabetes mellitus (Acute) Metastatic adenocarcinoma (Acute) Debility (Acute) Closed fracture of right distal femur (Acute) Vital Signs Temp Pulse Resp BP Pulse Ox O2 Del Method O2 Flow Rate 97 F L 71 19 H 149/70 H 95 Nasal Cannula 1 10/02/22 14:00 10/02/22 14:00 10/02/22 14:00 10/02/22 14:00 10/02/22 14:00 10/02/22 14:00 10/02/22 14:01 Oxygen Flow Rate (L/min) 1 Oxygen Delivery Method Nasal Cannula Weight: 100.698 kg Body Mass Index (BMI) 35.8 Sodium 140 mmol/L (136-145) 10/01/22 03:40 Potassium 4.0 mmol/L (3.5-5.1) 10/01/22 03:40 Chloride 107 mmol/L (98-107) 10/01/22 03:40 Carbon Dioxide 23.0 mmol/L (21.0-32.0) 10/01/22 03:40 Anion Gap 10 (5-15) 10/01/22 03:40 BUN 65 mg/dL (7-18) H 10/01/22 03:40 Creatinine 3.42 mg/dL (0.70-1.30) H 10/01/22 03:40 Est GFR (MDRD) Af Amer 23 mL/min (>60) L 10/01/22 03:40 Est GFR (MDRD) Non-Af 19 mL/min (>60) L 10/01/22 03:40 BUN/Creatinine Ratio 19.0 RATIO (10-20) 10/01/22 03:40 Glucose 91 mg/dL (74-106) 10/01/22 03:40 Assessment/Plan: 1. Pain: Tylenol 1000mg PO Q6h PRN Pain 1-3, Tramadol 50mg PO Q6h PRN Pain 4-5, Oxycodone 5mg PO Q4h PRN Pain 6-10, Lidocaine Patch topically daily PRN. Please continue to monitor for increased/decreased S/S pain, PRN medication usage, oversedation, constipation, local site irritation (lidocaine patch). - To date, the patient has used 4 Tylenol doses, 4 oxycodone doses, and 2 tramadol doses since admission. Pre-medication pain assessment rates pain 3-9/10 and post medication pain scale rated 0-4/10. 2. HTN: Norvasc 10mg PO Daily, Hydralazine 50mg PO TIDCM, hydrochlorothiazide 12.5mg PO Daily, lisinopril 40mg PO Daily, Lopressor 50mg PO BID. Please continue to monitor BP (range 13-194/62-82; most recent BP 149/70), pulse (range 64-94), electrolytes. Of note; the patient's blood pressures have been running higher. If they continue to be elevated, can consider increasing doses of antihypertensives, thank you 3. Skin Integrity: Calmoseptine topically BID. Please continue to monitor for skin redness, breakdown, ulcer formation. 4. Bowel: Miralax 17g PO Daily, Senna/Docusate 2 tab PO BID, Dulcolax 10mg MO x1 PRN, MOM 30mL PO x1 PRN. Please continue to monitor for increased/decreased constipation and/or diarrhea. -To date, the patient has not had a documented bowel movement yet. 5. Herpes Simplex virus:Acyclovir 800mg PO TID PRN outbreak. Please continue to monitor for flare-ups. The patient has not needed medication at this time, continue to monitor. Assessment/Plan for indications treated with psychotropic medications: 1. Depression: Celexa 20mg PO Daily. Please consider a GDR by 03/2023 if clinically indicated, thank you. Medical chart and medication regimen reviewed. The following medication irregularities or issues were identified: 1. HTN: Norvasc 10mg PO Daily, Hydralazine 50mg PO TIDCM, hydrochlorothiazide 12.5mg PO Daily, lisinopril 40mg PO Daily, Lopressor 50mg PO BID. Please continue to monitor BP (range 13-194/62-82; most recent BP 149/70), pulse (range 64-94), electrolytes. Of note; the patient's blood pressures have been running higher. If they continue to be elevated, can consider increasing doses of antihypertensives, thank you Date of Note:: 10/02/22
[2022-10-02] MEDS: Ensure Plus High Protein 120 ML LIQUID PO ×2 (17:54→20:48)
[2022-10-02 21:41] LABS: Bedside Glucose 142 mg/dL (74-106)
[2022-10-03] VITALS (7 sets, daily range): BP systolic 127–174; BP diastolic 54–72; PULSE 61–80; RESP 16–18; TEMP 35.8; O2SAT 94
[2022-10-03] MEDS: traMADol 50 MG Tablet PO ×3 (01:54→18:26)
[2022-10-03] MEDS: oxyCODONE 5 MG Tablet PO ×2 (05:20→21:21)
[2022-10-03] MEDS: Senna/Docusate Sodium 1 Tablet 2 TABLET PO ×2 (05:21→17:58)
[2022-10-03] MEDS: Lisinopril 40 MG Tablet PO (05:21)
[2022-10-03] MEDS: amLODIPine 10 MG Tablet PO (05:21)
[2022-10-03] MEDS: Citalopram 20 MG Tablet PO (05:21)
[2022-10-03] MEDS: Metoprolol Tartrate 50 MG Tablet PO ×2 (05:21→17:57)
[2022-10-03] MEDS: hydroCHLOROthiazide 12.5mg 12.5 MG PO (05:21)
[2022-10-03] MEDS: Ensure Plus High Protein 120 ML LIQUID PO ×4 (05:22→21:22)
[2022-10-03 06:40] LABS: Bedside Glucose 150 mg/dL (74-106)
[2022-10-03] MEDS: Menthol/Lanolin/Calamine/Znox 113 GM Tube 1 APPLIC TOPICAL ×2 (08:19→17:56)
[2022-10-03] MEDS: hydrALAZINE 50 MG Tablet PO ×3 (08:21→17:55)
--- NOTE | 2022-10-03 09:00 | NURSING ---
CULLENNURSE OF DR.PATRICK RICHARDS CALLED AND STATED THE WANTS US TO TAKE THE SUTURES OUT ON 10/05/22 AND GET A XRAY AND FAX REPORT OVER TO THEM AT [phone] BEFORE PT IS SEEN ON 10/10/22. RN AWARE
[2022-10-03] MEDS: Acetaminophen 500 MG Tablet 1000 MG PO ×2 (09:40→18:26)
--- NOTE | 2022-10-03 09:40 | PCA ---
Pt told ST he needed the toilet, when we offered the bedpan pt stated he had already went and needed cleaned up. When we turned pt, pt had not gone, brief was clean and dry. We offered the BSC, pt said yes, better safe than sorry. In the process of starting to get pt out of bed, pt's leg was bumped by pillow at foot of bed. Pt yelled and said nevermind about the BSC, everything's going wrong today. We made pt comfortable in the bed.
--- NOTE | 2022-10-03 09:47 | NURSING ---
PT CONFUSED AND GRUMPY TODAY. STATES HE NEEDS TO HAVE BM AND AIDS ASK IF HE WANTS BED TORRES PT STATES NO,ASK IF HE WANTS BSC PT STATES YES. THIS NURSE AND AIDS GO TO GET PT UP AND PT YELLS DUE TO PAIN AND TELLS STAFF TO GET OUT OF ROOM. THIS NURSE STATED TO PT THAT HE ASKED FOR BSC DUE TO MAYBE HAVING A BM AND IF HE WANTS US TO CONTINUE TO GET HIM UP OR BEDPAN PT STATES NO I DIDNT ASK FOR HELP. SPEECH THERAPY THEN COMES INTO ROOM AND TALKS WITH PT AND STATED SOMEONE STATED THEY WERE CHECKING TO SEE IF I CAN GET IN SHOWER AND THEY NEVER CAME BACK. THIS NURSE STATED IT WAS ME AND REMINDED PT THAT I TOLD HIM EARLIER THAT I WAS WAITING TO HERE FROM THE DR. OFFICE TO SEE IF HE COULD GET INTO THE SHOWER. PT STATED OH I DONT REMEMBER,OK WELL WE ARE JUST GOING TO BE MEAN TO EACH OTHER YOU BE MEAN TO ME AND I WILL BE MEAN TO YOU. THIS NURSE STATED TO PT THAT NO ONE IS GOING TO BE MEAN TO ANY ONE,WE DO NOT DO THAT HERE! PT STATED OK. ASKED PT IF HE WOULD LIKE SOME PAIN MEDS,PT STATED YES. PRN PAIN MEDS GIVEN. WILL CONTINUE TO MONITOR.
--- NOTE | 2022-10-03 15:31 | NURSING ---
GAVE MODERNA BOOSTER IN PT RIGHT DELT. PT TOLERATED WELL. WILL CONTINUE TO MONITOR.
--- NOTE | 2022-10-03 18:06 | NURSING ---
PT VERY EMOTIONAL AND STATED HE WAS SORRY FOR HOW HE WAS ACTING AND JUST WANTS TO GO HOME. THIS NURSE DID SOME ONE ON ONE WITH PT. PT THANKED THIS NURSE AND THEN PT X CAME IN AND WAS UPDATED.
[2022-10-04] MEDS: Menthol/Lanolin/Calamine/Znox 113 GM Tube 1 APPLIC TOPICAL ×2 (05:31→18:01)
[2022-10-04] MEDS: Ensure Plus High Protein 120 ML LIQUID PO (05:31)
[2022-10-04 05:34] VITALS: BP 184/71; PULSE 78
[2022-10-04] MEDS: amLODIPine 10 MG Tablet PO (05:34)
[2022-10-04] MEDS: Metoprolol Tartrate 50 MG Tablet PO ×2 (05:34→18:00)
[2022-10-04] MEDS: Lisinopril 40 MG Tablet PO (05:35)
[2022-10-04] MEDS: hydroCHLOROthiazide 12.5mg 12.5 MG PO (05:35)
[2022-10-04] MEDS: Citalopram 20 MG Tablet PO (05:35)
[2022-10-04] MEDS: Senna/Docusate Sodium 1 Tablet 2 TABLET PO ×2 (05:36→18:01)
[2022-10-04] MEDS: Acetaminophen 500 MG Tablet 1000 MG PO ×2 (05:40→20:58)
[2022-10-04] MEDS: traMADol 50 MG Tablet PO (05:41)
[2022-10-04 06:37] LABS: Bedside Glucose 146 mg/dL (74-106)
[2022-10-04 08:06] VITALS: BP 159/67; PULSE 69
[2022-10-04] MEDS: hydrALAZINE 50 MG Tablet PO ×3 (08:06→17:59)
--- NOTE | 2022-10-04 09:03 | NURSING ---
Patient complained to DESIGN TECHNOLOGY TEACHER about being SOB. This nurse assessed patient and placed on oxygen 2L, patient was making full sentences, respirations are normal, non labored breathing. This nurse coached patient to take deep breaths through nose and out through mouth. Patient resting comfortably with eyes closed.
[2022-10-04] MEDS: oxyCODONE 5 MG Tablet PO (11:08)
[2022-10-04 12:16] VITALS: PULSE 73
--- NOTE | 2022-10-04 12:45 | CASEMGMT ---
Social Work Received call from requesting to speak to this worker prior to POC this afternoon. Sister explained pt has called her and is grouchy, in a bad mood, and only wants to go home. Sister is aware pt is x2 assist and knows pt cannot return home alone needing this level care, but pt will not accept that. Sister is aware that technically IDT cannot keep a pt from discharging, and can only make recommendations on a safe DC. Sister states I don't want thrown under the bus with everyone looking at me to make the [discharge] decision. SW expressed understanding. SW educated to [facility] insurance with NRD 10/05 and continued stay is not guaranteed. Inquired about DC plan if pt cannot DC home. Sister is aware pt will need a SNF. Sister voiced not wanting to rely on home health aids at home because she cannot take off work to assist pt at home. SW offered SNF list. Sister requesting referrals to [facility], [facility] and [facility] and is aware it will be private pay and these facilities are out of network with insurance. Pt will make decision on continuing with therapy or resuming hospice. Sister is aware that pt has not been fully cooperative with therapy sessions and insurance will look at that as well. Sister appreciative of conversation and will be present for POC. SW to continue to follow. Stefanie Littlejohn, PROPERTY DEVELOPER EDUCATION ADMINISTRATIVE ASSISTANT
--- NOTE | 2022-10-04 14:48 | CASEMGMT ---
Social Work IDT met with patient and sister for care plan meeting. Discussed patient's progress in PT/OT/SN. Educated to [facility] insurance with NRD 10/05 and continued stay is not guaranteed. Pt is expressing frustration surrounding loss of independence and lack of control. SW provided supportive listening and empathy. Pt is making progress in therapy as evidenced by walking 10 ft today. IDT is hopeful of a safe return home, with time. However, currently is x2 assist and is not safe at home alone. Explained options of stopping therapy and DC to hospice IPU to get pain managed or to SNF with hospice. SW offered to speak with Dr about pain management along with removal of catheter as it is agitating pt. Pt was unable to provide an answer after several attempts from sister and IDT on DC wishes. IDT and sister did note that pt can be confused, disoriented at times, and not having good insight or safety awareness. This is also a factor in safe discharge planning. SW acknowledged the meeting being overwhelming and pt wanting to be alone to process. SW to make requests to Dr as comfort care is always a priority and will revisit with sister and pt at a later time. Sister expressed appreciation. Will continue to follow. Stefanie Littlejohn, GRAIN MILL PRODUCTS INSPECTOR MANAGER CT
[2022-10-04] MEDS: oxyCODONE 5 MG Tablet 10 MG PO (17:58)
[2022-10-04 17:59] VITALS: BP 158/63; PULSE 84
[2022-10-04 18:00] VITALS: PULSE 84
--- NOTE | 2022-10-04 23:13 | NURSING ---
Addendum entered by Mac Fletcher 10/05/22 02:43: Continued: Pt. rep (Carolin) also requested PRN Ativan to RTN, written communication left for Dr. Aranda regarding request Original Note: patient veterans service representative (Carolin) calls unit requesting to speak with nurse, Carolin states patient is calling her phone and his lady friend, Carolin states patient agitated on phone and believes he is in a different room. Carolin states patient anger not new and was common at home. Patient immediately assessed, presents in bed with cell phone at side, television on. Patient states they put me in a different room and moved all my stuff around. Patient room has not changed since admission. Attempt to redirect patient, to person/place/time. Patient agitated states I'm angry as hell that they put me here. 1:1 provided. Patient states I'm just going to try and calm down PRN Ativan offered and refused. Patient states I'm not taking any medications here, I don't trust it. Attempt to educate patient on reason for admission to unit, doctors orders and medications to treat anxiety and pain. Patient refused. Space provided per pt. request. Patient safe in bed, bed in lowest position, call light in reach, personal belongings within reach. Denies requests. Call light in reach.
[2022-10-05] VITALS (7 sets, daily range): BP systolic 138–175; BP diastolic 66–70; PULSE 74–86; RESP 16; TEMP 36.2; O2SAT 90–94
--- NOTE | 2022-10-05 | NURSING ---
Addendum entered by Mac Fletcher 10/05/22 01:10: Resting in bed with eyes closed, no agitation at this time, no c/o pain, no distress observed or reported. Call light in reach. Original Note: Patient refused routine oxy despite education, offered x3.
--- NOTE | 2022-10-05 03:56 | NURSING ---
Patient refused florez cath removal despite attempts x3 and education. Patient refusing care when offered. Written communication left for Dr. Aranda regarding patient refusal. Denies further requests. Call light and personal items within reach. Bed in lowest position.
--- NOTE | 2022-10-05 05:01 | NURSING ---
Addendum entered by Mac Fletcher 10/05/22 07:29: patient refused AM glucose check, included in Dr. Aranda written communication Original Note: Patient refuses all scheduled meds at this time, allows vital signs to be taken but will not accept medication, states I'm not taking any pills despite education. Written communication left for Dr. Aranda regarding patient refusal of meds/care/florez removal and intermittent confusion observed for review during AM rounds.
[2022-10-05] MEDS: Citalopram 20 MG Tablet PO (08:39)
[2022-10-05] MEDS: hydrALAZINE 50 MG Tablet PO ×2 (08:39→17:54)
[2022-10-05] MEDS: amLODIPine 10 MG Tablet PO (08:39)
[2022-10-05] MEDS: Lisinopril 40 MG Tablet PO (08:39)
[2022-10-05] MEDS: hydroCHLOROthiazide 12.5mg 12.5 MG PO (08:40)
[2022-10-05 09:06] LABS: Bedside Glucose 124 mg/dL (74-106)
--- NOTE | 2022-10-05 10:49 | CASEMGMT ---
Social Work BIMS (08/24) and PHQ-9 (02/03) completed for MDS assessment. Pt was agitated again during assessment. SW attempted to assist pt in getting comfortable and needs met, but was not to pts satisfaction. Pt did refuse OT ADL this morning. Insurance update is today, but IDT will be recommending setting DC. SW to follow outcome of insurance update and DC plans. Stefanie Littlejohn, PARTY HOST DRONE PILOT
--- NOTE | 2022-10-05 13:01 | MDS.RN ---
Pain assessment for YENNI 10/07/22 completed.
--- NOTE | 2022-10-05 15:58 | CASEMGMT ---
Addendum entered by Stefanie Littlejohn 10/05/22 16:41: Spoke with liaison and a nurse will be in to visit pt 10/06 first thing in the morning to assess pt for IPU. If IPU approved, pt will DC 10/06; if denied, pt will DC 10/08 to next disposition. Original Note: Social Work Insurance issued LCD 10/07, DC 10/08. SW spoke with pt's sister to update. Sister is requesting hospice consult for IPU or for hospice in SNF. SW agreeable to place referral. Updated sister [facility] can accept, [facility] denied pt. Sister would like hospice to advise sister on if pt can go home or needs a SNF after assessment. SW phoned referral to Mindy at [facility] (who is pt's cousin) to eval for IPU. loading inspector is currently present for assessment. Plan: DC 10/08 with hospice - IPU vs SNF vs Home. SW to follow. Stefanie Littlejohn, FIRE ALARM INSPECTOR RESIDENTIAL ASSISTANT
[2022-10-05] MEDS: Acetaminophen 500 MG Tablet 1000 MG PO ×2 (16:28→21:38)
--- NOTE | 2022-10-05 17:27 | DS.PCM_ITS ---
Providers Date of Admission: 09/30/22 Primary Care Physician: Dr. Urbano Aranda MD Reason For Visit: PATHOLOGICAL FX RIGHT FEMORAL NECK,UTI,DELIRIUM Diagnosis Discharge Diagnosis (1) Debility: Status: Acute Code(s): R53.81 - Other malaise (2) Closed fracture of right distal femur: Status: Acute Code(s): S72.401A - Unspecified fracture of lower end of right femur, initial encounter for closed fracture (3) Metastatic adenocarcinoma: Status: Acute Code(s): C79.9 - Secondary malignant neoplasm of unspecified site (4) Diabetes mellitus: Status: Acute Code(s): E11.9 - Type 2 diabetes mellitus without complications (5) Hypertension: Status: Chronic Code(s): I10 - Essential (primary) hypertension (6) Hyperlipidemia: Status: Acute Code(s): E78.5 - Hyperlipidemia, unspecified (7) Depression: Status: Acute Code(s): F32.A - Depression, unspecified (8) Chronic kidney disease, stage 4 (severe): Status: Chronic Code(s): N18.4 - Chronic kidney disease, stage 4 (severe) (9) Nephrotic syndrome: Status: Acute Code(s): N04.9 - Nephrotic syndrome with unspecified morphologic changes Plan 67 year old male with below past medical history significant for metastatic adenocarcinoma, hospitalized for right distal femur fracture, underwent intramedullary nail fixation pathologic right femur fracture, admitted to TCU with debility, here for rehabilitation, strengthening, prior to discharge home with hospice. * Debility - PT/OT. * Cognition - ST. * Pain - Tylenol 1000mg q6h prn pain (1-3), Tramadol 50mg q6h prn pain (4-5), Oxycodone 5mg q4h prn pain (6-10). * Bowel - Miralax 17gm daily, senna/colace 2 tablets bid, Dulcolax 10mg pr x 1 prn, MOM 30ml po x 1 prn. * Adult immunization - Administer pneumonia vaccine, covid19 vaccine, flu vaccine as appropriate. * DVT prophylaxis - Hold, pending labs. * Herpes Simplex - Acyclovir 800mg tid prn. * Depression - Citalopram 20mg daily, stable chronic terminologist use, GDR not recommended. * Hypertension - Metoprolol 50mg bid, Lisinopril 40mg daily, HCTZ 12.5mg daily, Amlodipine 10mg daliy, Hydralazine 50mg ticcm. * Diabetes Mellitus II - monitor blood sugars. Hospital Course Operations - (IMN right distal femur fracture.) Procedures None Summary of Care Provided Minutes Spent on Discharge: 35 Hospital Course: 67 year old male with below past medical history significant for metastatic adenocarcinoma, hospitalized for right distal femur fracture, underwent intramedullary nail fixation pathologic right femur fracture, admitted to TCU with debility, here for rehabilitation, strengthening, prior to discharge home with hospice. Resident dying. Discharge to Inpatient Hospice Unit 10/06/2022. Physical Exam Const alert General Appearance: cooperative HEENT normocephalic Eyes PERRL and EOMs intact bilaterally Neck supple, no JVD and no carotid bruits Resp normal respiratory effort, normal air movement and clear to auscultation bilaterally Cardio regular rate and regular rhythm GI normal to inspection, nondistended, normoactive bowel sounds, non-tender and non-distended Extremity normal capillary refill General Extremity: Negative for edema Skin no rashes or lesions noted General Skin Exam: no breakdown Psych affect normal Appearance: appropriate Weight / BMI Weight Weight: 100.698 kg Body Mass Index (BMI) 35.8 ABG / Lab / Microbiology Data Result Diagrams: 10/01/22 03:40 10/01/22 03:40 Laboratory: Laboratory Results - last 24 hr 10/05/22 08:48: POC Glucose 124 H Microbiology: Microbiology 10/04/22 06:40 Nasal Secretion SARS-CoV-2 Antigen (Rapid) - Final 10/02/22 08:45 Nasal Secretion SARS-CoV-2 Antigen (Rapid) - Final 10/01/22 06:00 Nasal Secretion SARS-CoV-2 Antigen (Rapid) - Final D/C Instructions Discharge Diet: No restrictions Weight Bearing Status: Weight bearing as tolerated Additional Instructions: Discharge to Inpatient Hospice Unit 10/06/2022. Please Follow Up With: Wilbert Frye MD When: Cancel. Meaningful Use Info Meaningful Use Diagnoses (Choose all that apply): None applicable Discharge Plan Admission Admit Date/Time: 09/30/22 20:29 Primary Reason for Your Visit: Debility. Attending Provider: Urbano Aranda Chi Primary Care Provider: Urbano Aranda Chi Instructions Additional Instructions / Restrictions: Discharge to Inpatient Hospice Unit 10/06/2022. Discharge Orders/Prescriptions Prescriptions: Discontinued Kerendia 10 mg tablet 10 mg PO DAILY lisinopril [Zestril] 20 MG tablet 40 mg PO 1400 metoprolol tartrate 25 MG tablet 50 mg PO BID atorvastatin 40 MG tablet 40 mg PO QHS lidocaine 1 PATCH patch 1 patch TOPICAL PRN PRN (Reason: Pain) amlodipine 5 mg Tablet 5 mg PO 1200 citalopram [Celexa] 20 mg Tablet 20 mg PO DAILY Novolin R Regular U-100 Insuln 100 unit/mL Solution 40 unit SUBCUT BID ergocalciferol (vitamin D2) [Vitamin D2] 1,250 mcg (50,000 unit) Capsule 1,250 mcg PO QMONTH Referrals / Follow Up: Urbano Aranda Chi, MD [Primary Care Provider] - Disposition Disposition (needs filled in before D/C Order can be placed): Hospice in Medical Facility
[2022-10-05] MEDS: Metoprolol Tartrate 50 MG Tablet PO (17:55)
[2022-10-05] MEDS: oxyCODONE 5 MG Tablet 10 MG PO (17:59)
[2022-10-05] MEDS: Menthol/Lanolin/Calamine/Znox 113 GM Tube 1 APPLIC TOPICAL (18:01)
--- NOTE | 2022-10-05 20:02 | PCA ---
This ASSISTANT KITCHEN MANAGER went into patient room with other shift supervisor melting aide. Patient had stated that their bottom was hurting and they wished to stand up beside the bed for a minute to get a little relief. This ASSISTANT KITCHEN MANAGER, having not worked much with patient asked for clarification if patient was able to bear weight on their bad foot. Patient looked at ASSISTANT KITCHEN MANAGER and stated you can get out if you don't want to help me. Stop asking questions and find someone who wants to help ASSISTANT KITCHEN MANAGER explained that they only asked since they had not worked much with patient and for their safety wanted to make sure things were being done correctly. ASSISTANT KITCHEN MANAGER again offered assistance and patient stated i do need help just not from you ASSISTANT KITCHEN MANAGER placed tray table over patients bed per patient request and gave patient their call light and left the room. Rn notified.
[2022-10-05] MEDS: LORazepam 0.5 MG Tablet PO (21:39)
[2022-10-05] MEDS: Ensure Plus High Protein 120 ML LIQUID PO (21:50)
[2022-10-06] VITALS (8 sets, daily range): BP systolic 113–150; BP diastolic 55–69; PULSE 65–90; RESP 16; TEMP 36.2–37.2; O2SAT 92–95
[2022-10-06 06:31] LABS: Bedside Glucose 113 mg/dL (74-106)
[2022-10-06] MEDS: Menthol/Lanolin/Calamine/Znox 113 GM Tube 1 APPLIC TOPICAL ×2 (06:48→17:45)
[2022-10-06] MEDS: Ensure Plus High Protein 120 ML LIQUID PO (06:48)
[2022-10-06] MEDS: Acetaminophen 500 MG Tablet 1000 MG PO ×2 (06:49→21:48)
[2022-10-06] MEDS: Metoprolol Tartrate 50 MG Tablet PO ×2 (06:49→17:48)
[2022-10-06] MEDS: Senna/Docusate Sodium 1 Tablet 2 TABLET PO (06:49)
[2022-10-06] MEDS: oxyCODONE 5 MG Tablet 10 MG PO ×2 (06:49→17:46)
[2022-10-06] MEDS: amLODIPine 10 MG Tablet PO (08:20)
[2022-10-06] MEDS: Citalopram 20 MG Tablet PO (08:20)
[2022-10-06] MEDS: Lisinopril 40 MG Tablet PO (08:20)
[2022-10-06] MEDS: hydrALAZINE 50 MG Tablet PO ×3 (08:20→17:47)
[2022-10-06] MEDS: hydroCHLOROthiazide 12.5mg 12.5 MG PO (08:21)
--- NOTE | 2022-10-06 10:46 | NURSING ---
Life Enrichment Manager Note; MDS for 10/07/2022 Complete
--- NOTE | 2022-10-06 12:16 | CASEMGMT ---
Addendum entered by Stefanie Littlejohn 10/06/22 13:23: Cot transport scheduled through [facility] for 1100. PASRR completed and DC paperwork to [facility] and [facility]. Original Note: Social Work Met with nurse health insurance assessor for IPU. Provided information on pt being restless, agitated, voices pain is not managed, but also does not appear to be satisfied with care provided/offered to achieve comfort. Explained pt is not consistent with his memory, and is confused. Nurse confirmed she observed this as well. SW confirmed POA/NOK is , Carolin. Sister continues to stay in contact with this worker and appears to be putting pt's needs/wishes first as best she can. sister has voiced paying pt's bills on time, and acknowledging pt wants to go home, but at x2 assist, it is not safe. Nurse agreed. SW received call from sister stating she spoke with hospice and pt is not eligible for IPU, thus pt will DC to [facility] with hospice on 10/08. Sister inquired again about care in the home and requested list emailed to her. SW emailed private duty aid list and cautioned it may not be possible to find care for pt to DC home Sunday. will contact agencies today and notify this worker of findings. SW will proceed with DC plan to [facility], and can change to home, if needed. Sister agreed. SW to complete PASRR and cot transport. Stefanie Littlejohn, PAOLO HERNANDEZW
--- NOTE | 2022-10-06 13:13 | TREXTCAR_ITS ---
Diet Diet Order/Speech Therapy: 09/30/22 21:10 Diet: Regular - General Food consistency:: Regular Liquid Consistency:: Regular/Thin Diet Comments: assist w/ meals due to decreased upper body strength; decreased cognition Routine Orders/Code Status Code Status: Full Code Wound(s) Left Hip x 2 incisions: Wound Type: Surgical Incision Incision- right lateral knee: Wound Type: Surgical Incision Right Lateral Thigh- incisions: Wound Type: Surgical Incision Problem/Diagnosis (1) Debility: Status: Acute Code(s): R53.81 - Other malaise (2) Closed fracture of right distal femur: Status: Acute Code(s): S72.401A - Unspecified fracture of lower end of right femur, initial encounter for closed fracture (3) Metastatic adenocarcinoma: Status: Acute Code(s): C79.9 - Secondary malignant neoplasm of unspecified site (4) Diabetes mellitus: Status: Acute Code(s): E11.9 - Type 2 diabetes mellitus without complications (5) Hypertension: Status: Chronic Code(s): I10 - Essential (primary) hypertension (6) Hyperlipidemia: Status: Acute Code(s): E78.5 - Hyperlipidemia, unspecified (7) Depression: Status: Acute Code(s): F32.A - Depression, unspecified (8) Chronic kidney disease, stage 4 (severe): Status: Chronic Code(s): N18.4 - Chronic kidney disease, stage 4 (severe) (9) Nephrotic syndrome: Status: Acute Code(s): N04.9 - Nephrotic syndrome with unspecified morphologic changes Plan 67 year old male with below past medical history significant for metastatic adenocarcinoma, hospitalized for right distal femur fracture, underwent intramedullary nail fixation pathologic right femur fracture, admitted to TCU with debility, here for rehabilitation, strengthening, prior to discharge home with hospice. * Debility - PT/OT. * Cognition - ST. * Pain - Tylenol 1000mg q6h prn pain (1-3), Tramadol 50mg q6h prn pain (4-5), Oxycodone 5mg q4h prn pain (6-10). * Bowel - Miralax 17gm daily, senna/colace 2 tablets bid, Dulcolax 10mg pr x 1 prn, MOM 30ml po x 1 prn. * Adult immunization - Administer pneumonia vaccine, covid19 vaccine, flu vaccine as appropriate. * DVT prophylaxis - Hold, pending labs. * Herpes Simplex - Acyclovir 800mg tid prn. * Depression - Citalopram 20mg daily, stable chronic snf use, GDR not recommended. * Hypertension - Metoprolol 50mg bid, Lisinopril 40mg daily, HCTZ 12.5mg daily, Amlodipine 10mg daliy, Hydralazine 50mg ticcm. * Diabetes Mellitus II - monitor blood sugars. Allergies/Procedures Done in Hospital Allergies No Known Allergies Allergy (Verified 09/21/22 15:42) Procedures: - (IMN right femur fracture.) Type of Care/Length of Stay Estimated LOS: More Than 30 Days Type of Care Needed: Intermediate Rehab Potential: Poor Prognosis: Poor Additional Orders/Day of Discharge Additional Orders: [facility] Day of Discharge: 10/08/22 Dietary and Speech Recommendations Dietitian Recommendations/Changes: Will continue liberal Regular diet d/t res preference Will continue 4 oz ensure plus high protein 4x/day w/ medpass for increased nutrition if consumed Speech Linguistic Eval Summary: Completed SLUMS Evaluation. Pt's score indicates probable cognitive impairment. Pt demonstrated deficits in orientation, problem solving, divergent naming, immediate and short term memory and auditory comprehension. Follow Up Care Please Follow Up With: Wilbert rFye MD Discharge Plan Admission Admit Date/Time: 09/30/22 20:29 Primary Reason for Your Visit: Debility. Attending Provider: Urbano Aranda Chi Primary Care Provider: Urbano Aranda Chi Instructions Additional Instructions / Restrictions: Discharge 10/08/2022 to [facility] with Hospice. Discharge Orders/Prescriptions Prescriptions: Discontinued Kerendia 10 mg tablet 10 mg PO DAILY lisinopril [Zestril] 20 MG tablet 40 mg PO 1400 metoprolol tartrate 25 MG tablet 50 mg PO BID atorvastatin 40 MG tablet 40 mg PO QHS lidocaine 1 PATCH patch 1 patch TOPICAL PRN PRN (Reason: Pain) amlodipine 5 mg Tablet 5 mg PO 1200 citalopram [Celexa] 20 mg Tablet 20 mg PO DAILY Novolin R Regular U-100 Insuln 100 unit/mL Solution 40 unit SUBCUT BID ergocalciferol (vitamin D2) [Vitamin D2] 1,250 mcg (50,000 unit) Capsule 1,250 mcg PO QMONTH Referrals / Follow Up: Urbano Aranda Chi, MD [Primary Care Provider] - Disposition Disposition (needs filled in before D/C Order can be placed): Hospice in Medical Facility
[2022-10-06] MEDS: LORazepam 0.5 MG Tablet PO ×2 (14:30→21:45)
[2022-10-07] VITALS (8 sets, daily range): BP systolic 106–172; BP diastolic 51–68; PULSE 63–83; RESP 14–18; TEMP 36.6; O2SAT 91–95
[2022-10-07] MEDS: LORazepam 0.5 MG Tablet PO ×3 (05:13→21:42)
[2022-10-07] MEDS: Menthol/Lanolin/Calamine/Znox 113 GM Tube 1 APPLIC TOPICAL ×2 (05:14→17:19)
[2022-10-07] MEDS: Metoprolol Tartrate 50 MG Tablet PO ×2 (05:14→17:19)
[2022-10-07] MEDS: Senna/Docusate Sodium 1 Tablet 2 TABLET PO ×2 (05:15→17:17)
[2022-10-07] MEDS: Acetaminophen 500 MG Tablet 1000 MG PO ×3 (05:17→21:46)
[2022-10-07 06:35] LABS: Bedside Glucose 114 mg/dL (74-106)
[2022-10-07] MEDS: Lisinopril 40 MG Tablet PO (08:19)
[2022-10-07] MEDS: Citalopram 20 MG Tablet PO (08:19)
[2022-10-07] MEDS: hydroCHLOROthiazide 12.5mg 12.5 MG PO (08:19)
[2022-10-07] MEDS: hydrALAZINE 50 MG Tablet PO ×3 (08:19→17:17)
[2022-10-07] MEDS: amLODIPine 10 MG Tablet PO (08:19)
[2022-10-07] MEDS: oxyCODONE 5 MG Tablet 10 MG PO ×2 (11:19→17:16)
[2022-10-08] MEDS: Menthol/Lanolin/Calamine/Znox 113 GM Tube 1 APPLIC TOPICAL (05:49)
[2022-10-08] MEDS: Acetaminophen 500 MG Tablet 1000 MG PO (05:49)
[2022-10-08] MEDS: LORazepam 0.5 MG Tablet PO (05:49)
[2022-10-08 05:53] VITALS: BP 136/57; PULSE 82
[2022-10-08] MEDS: Metoprolol Tartrate 50 MG Tablet PO (05:53)
[2022-10-08 05:57] VITALS: RESP 16; O2SAT 90
[2022-10-08 06:46] LABS: Bedside Glucose 119 mg/dL (74-106)
[2022-10-08 06:48] LABS: Absolute Lymphocyte Count 0.77 X10^3/uL (0.83-4.51); Absolute Neutrophil Count 5.6 X10^3/uL (2.0-7.7); Basophil# 0.02 X10^3/uL; Basophil% 0.3 % (0-1); Eosinophil# 0.12 X10^3/uL; Eosinophils% 1.6 % (0-5); Hematocrit 28.7 % (40-54); Hemoglobin 9.2 g/dL (13.0-16.5); Lymphocyte # 0.77 X10^3/ul (0.83-4.51); Lymphocyte % 10.4 % (19-41); Mean Corp Hgb Conc 32.1 g/dL (32-36); Mean Corpuscular Hgb 25.5 pg (27.0-32.0); Mean Corpuscular Volume 79.5 fL (80-94); Mean Platelet Vol. 9.6 fl (6.2-12.0); Monocyte# 0.88 X10^3/uL; Monocyte% 11.9 % (0-10); NRBC Flagged by Analyzer 0 % (0-5); Neutrophil # 5.55 X10^3/uL (2.7-7.7); Neutrophil % 75.3 % (47-70); Platelet Count 212 K/mm3 (150-450); RBC Distribution Width CV 15.8 % (11.6-14.6); RBC Distribution Width SD 45.4 fl (35.1-43.9); Red Blood Count 3.61 M/mm3 (4.6-6.2); White Blood Count 7.4 K/mm3 (4.4-11.0)
[2022-10-08 07:13] LABS: Anion Gap 9 (5-15); BUN 70 mg/dL (7-18); BUN/Creat Ratio 15.5 RATIO (10-20); Calcium,Total 10.7 mg/dL (8.5-10.1); Chloride 101 mmol/L (98-107); Creatinine, Serum 4.52 mg/dL (0.70-1.30); EST Glomerular Filtration Rate 14 mL/min (>60); Est Glom Filt Rate - Afr Amer 17 mL/min (>60); Estimated Creatinine Clearance 14.51 ml/min; Glucose 119 mg/dL (74-106); Potassium 4.1 mmol/L (3.5-5.1); Sodium Level 136 mmol/L (136-145)
[2022-10-08 08:43] VITALS: BP 120/40; PULSE 71; RESP 18; TEMP 36.7; O2SAT 96
[2022-10-08 08:45] VITALS: BP 120/40
[2022-10-08] MEDS: Lisinopril 40 MG Tablet PO (08:47)
[2022-10-08] MEDS: Citalopram 20 MG Tablet PO (08:47)
[2022-10-08] MEDS: amLODIPine 10 MG Tablet PO (08:47)
[2022-10-08 08:53] VITALS: PULSE 71; RESP 18; O2SAT 96
--- NOTE | 2022-10-08 11:30 | NURSING ---
report called to [facility]
--- NOTE | 2022-10-09 08:18 | CASEMGMT ---
Social Work Received voicemail from sister requesting to cancel transport for ortho appt 10/10. Sister stated she had canceled the appt but did not know how to cancel transport. SW spoke with [facility] and canceled transport. Stefanie Littlejohn, CIRCUIT TESTER TECHNICAL SOLUTION ARCHITECT
--- NOTE | 2022-10-10 11:54 | MDS.RN ---
Information for the mds was obtained from review of the clinical record, interview of resident, staff, and direct observation of resident's care.
== END 2022-10-08 11:00 | disposition hospice, inpatient (51) | DRG 560 ==
PROVIDERS: Admitting Provider Family Medicine Geriatric Medicine; PCP Family Medicine Geriatric Medicine; Visit Provider Family Medicine Geriatric Medicine
DX: M84.551D Pathological fracture in neoplastic disease, right femur, subsequent encounter for fracture with routine healing (principal); C79.9 Secondary malignant neoplasm of unspecified site; N18.4 Chronic kidney disease, stage 4 (severe); C80.1 Malignant (primary) neoplasm, unspecified; E11.22 Type 2 diabetes mellitus with diabetic chronic kidney disease; E11.40 Type 2 diabetes mellitus with diabetic neuropathy, unspecified; Z79.4 Long term (current) use of insulin; E78.5 Hyperlipidemia, unspecified; I12.9 Hypertensive chronic kidney disease with stage 1 through stage 4 chronic kidney disease, or unspecified chronic kidney disease; F32.A Depression, unspecified; Z87.891 Personal history of nicotine dependence; B00.9 Herpesviral infection, unspecified; Z79.899 Other long term (current) drug therapy; Z23 Encounter for immunization
CPT/HCPCS: 0134A; 36415; 80048; 82962; 85025; 87426; 87811; 91313; 92507; 92523; 92526; 92610; 97110; 97116; 97162; 97166; 97530; 97535; 97802